=== PATIENT | female | born 1950 | race Caucasian/White ===

== ENCOUNTER → 2018-01-16 11:12 | Outpatient (POV) | payer MEDICARE, SELFPAY | PROVIDERS: Visit Provider Nurse Practitioner Acute Care | DX: Z00.00 Encounter for general adult medical examination without abnormal findings (principal) ==

== ENCOUNTER → 2018-06-07 07:10 | Outpatient (CLI) | payer MEDICARE, SELFPAY ==
[2018-06-07 13:47] LABS: Basophils % 0.4 % (0.1-2.0); Eosinophils # 0.3 K/mm3 (0.0-0.4); Eosinophils % 3.7 % (0.1-12.0); Hematocrit 42.9 % (37.0-47.0); Hemoglobin 13.6 g/dL (12.2-16.2); Lymphocytes # 1.6 K/mm3 (0.7-4.5); Mean Corpuscular HGB Conc 31.8 g/dL (31.8-35.4); Mean Corpuscular Hemoglobin 28.8 pg (27.0-31.2); Mean Corpuscular Volume 90.5 fl (81-99); Mean Platelet Volume 7.4 fl (7.4-10.4); Monocytes # 0.4 K/mm3 (0.1-1.0); Monocytes % 5.7 % (1.7-9.3); Neutrophils # 5.2 K/mm3 (1.8-7.8); Neutrophils % 69.3 % (37.0-80.0); Platelet Count 324 K/mm3 (142-424); Red Blood Count 4.74 M/mm3 (4.20-5.40); Red Cell Distribution Width 13.4 % (11.5-17.5); White Blood Count 7.4 K/mm3 (4.8-10.8)
[2018-06-07 14:00] LABS: Alanine Aminotransferase 27 U/L (12-78); Albumin Level 3.4 gm/dL (3.4-5.0); Albumin/Globulin Ratio 1.3 (1.1-1.8); Alkaline Phosphatase 53 U/L (46-116); Anion Gap 11.8 mEq/L (5-15); Aspartate Amino Transferase 11 U/L (15-37); Bilirubin,Total 0.5 mg/dL (0.2-1.0); Blood Urea Nitrogen 13 mg/dL (7-18); Calcium 8.9 mg/dL (8.5-10.1); Carbon Dioxide 29 mmol/L (21.0-32.0); Chloride 111 mmol/L (98-107); Chol/HDL Ratio 2.1 (1-3.5); Cholesterol 127 mg/dL (140-200); Creatinine,Serum 0.74 mg/dL (0.55-1.02); Estimated Glomerular Filt Rate 78 ml/min (>60); Free Thyroxine Index 3.4 ug/dL (5.93-13.13); GFR (African American) 95 ML/MIN (>60); Globulin 2.6 gm/dl (1.3-3.2); Glucose 79 mg/dL (74-106); HDL Cholesterol 60 mg/dL (29-89); LDL Cholesterol 45 mg/dL (0-130); Potassium 3.8 mmoL/L (3.5-5.1); Sodium 148 mmol/L (136-145); T4 (Thyroxine) 10.1 ug/dl (4.7-13.3); Thyroid Stimulating Hormone 0.01 uIU/ml (0.358-3.740); Triglycerides 109 mg/dL (30-200); Triiodothryronine (T3) Uptake 34 % (31-39); VLDL Cholesterol 22 mg/dL (0-40)
== END ==
PROVIDERS: PCP Internal Medicine Adolescent Medicine; Visit Provider Internal Medicine Adolescent Medicine
DX: E03.9 Hypothyroidism, unspecified (principal); E78.5 Hyperlipidemia, unspecified; E23.0 Hypopituitarism
CPT/HCPCS: 36415; 80053; 80061; 82533; 84436; 84443; 84479; 85025

== ENCOUNTER → 2019-04-17 09:17 | Outpatient (CLI) | payer MEDICARE, SELFPAY ==
--- NOTE | 2019-04-17 09:21 | CA_ITS ---
APPROVED REPORT EXAM: Comprehensive 2D, Doppler, and color-flow Echocardiogram [employer]: Genesis Rodriguez RDCS Ht: 5 ft 7 in Wt: 185lbs BSA: 1.96 BP: 130/80 mmHg Indications: WYATT Left Ventricle Left atrium is mildly enlarged, left ventricle is normal size, visually estimated ejection fraction 55% with no regional wall motion abnormality, grade 1 diastolic dysfunction seen without tissue Doppler evidence of raise left atrial pressure. Right Ventricle Right atrium and right ventricular normal size and contractility. Aortic Valve Aortic valve is minimally thickened and fibrosed, there is no aortic stenosis aortic insufficiency. Mitral Valve Mitral valve leaflets are minimally thickened, there is no mitral stenosis, there is mild mitral regurgitation Tricuspid Valve Tricuspid valve is grossly normal, there is mild tricuspid regurgitation, tricuspid regurgitation jet velocitie is inadequate for calculation of the right ventricular systolic pressure. Pulmonic Valve Pulmonic valve is poorly visualized. Great Vessels Aortic root is normal size. Pericardium No significant pericardial effusion noted. 2D Dimensions LVOT 2.00 cm (M/F) 1.5-2.5 M-Mode Dimensions RVDd 1.80 cm (0.9-2.6) LA Diam 4.10 cm (1.9-4.0) LVDd 5.80 cm (3.5-5.7) Ao Diam 3.30 cm (2.0-3.7) LVDs 4.30 cm (3.5-5.7) AV Cusp 1.70 cm (1.5-2.6) IVSd 0.90 cm (0.6-1.1) PWd 0.90 cm (0.6-1.1) EF (Teich) 50.20% FS 25.90% EDV (Teich) 167.00 mL ESV (Teich) 83.10 mL LV Diastology E/A Ratio 0.90 MED E' 6.34 (< 7 cm/sec) E'/MED E' Ratio 11.10 (>14) LAT E' 10.00 (<10 cm/sec) E/LAT E' Ratio 7.10 (>14) Mitral Valve MV E Max Mook. 70.60 (40-130 cm/s) MV A Velocity 75.50 (40-130 cm/s) E/A Ratio 0.90 Tricuspid Valve TR P. Velocity 257.00 cm/s RAP Estimate 10.00 mmHg RVSP 36.00 mmHg Conclusion 1. Mild in the left atrium, normal left ventricular size, visually estimated ejection fraction 45% with no regional wall motion abnormality, grade 1 diastolic dysfunction seen without tissue Doppler evidence of raise left atrial pressure. 2. Mild mitral and tricuspid regurgitation 3. No significant pericardial effusion noted. Electronically signed by : Vicente Johnson, 04/20/2019 14:08:10
--- NOTE | 2019-04-17 09:53 | XR_ITS ---
PROCEDURE: XR CHEST 2V CLINICAL HISTORY: DYSPNEA ON EXERTION COMPARISON: CXR CHEST(2 VIEWS-NOT PORTABLE) from 06/23/2016 FINDINGS: Mild cardiomegaly without failure. Tortuous aorta. [id number] dextroscoliosis of the thoracic spine. Lungs are clear. No lobar consolidation or collapse. IMPRESSION: Cardiomegaly, no change with no acute finding Dictated by: Joel Méndez MD 04/18/2019 06:10 Signed by: <Electronically signed by Joel Méndez MD in [place]> 04/18/2019 06:10
== END ==
PROVIDERS: PCP Internal Medicine Adolescent Medicine; Visit Provider Internal Medicine Adolescent Medicine
DX: R06.09 Other forms of dyspnea (principal)
CPT/HCPCS: 71046; 93306

== ENCOUNTER 2019-07-05 10:00 | Outpatient (RCR) | payer MEDICARE, SELFPAY | END 2019-07-17 15:00 | disposition home or self-care (01) | LOC: PT.CARL 10:00 | PROVIDERS: Visit Provider Internal Medicine Adolescent Medicine | DX: R53.81 Other malaise (principal) | CPT/HCPCS: 97110; 97112; 97163 ==

== ENCOUNTER → 2019-10-31 07:35 | Outpatient (CLI) | payer MEDICARE, SELFPAY ==
[2019-10-31 13:43] LABS: Alanine Aminotransferase 20 U/L (12-78); Alkaline Phosphatase 56 U/L (38-126); Anion Gap 9.6 mEq/L (5-15); Aspartate Amino Transferase 20 U/L (14-36); Bilirubin,Total 0.5 mg/dl (0.2-1.3); Blood Urea Nitrogen 19 mg/dl (7-17); Carbon Dioxide 31 mmol/L (22.0-30.0); Chloride 106 mmol/L (98-107); Chol/HDL Ratio 2.2 (1-3.5); Cholesterol 108 mg/dl (140-200); Estimated Glomerular Filt Rate 71 ml/min (>60); GFR (African American) 86 ML/MIN (>60); Glucose 77 mg/dl (74-100); HDL Cholesterol 50 mg/dl (40-60); Potassium 4.6 mmoL/L (3.5-5.1); Sodium 142 mmol/L (136-145); Triglycerides 134 mg/dl (30-150); VLDL Cholesterol 27 mg/dL (0-40)
[2019-10-31 13:53] LABS: NT Pro Brain Natriuretic Pep. 247 pg/mL (0-125)
[2019-10-31 13:55] LABS: Direct LDL Cholesterol 40.54 mg/dL (100-129)
[2019-10-31 14:01] LABS: Free Thyroxine Index 2.8 ug/dL (5.93-13.13); T4 (Thyroxine) 9.4 ug/dl (5.53-11.0); Triiodothryronine (T3) Uptake 30 % (23.5-40.5)
[2019-10-31 14:02] LABS: Basophils % 0.4 % (0.1-2.0); Eosinophils # 0.2 K/mm3 (0.0-0.4); Hematocrit 45.1 % (37.0-47.0); Hemoglobin 14.1 g/dL (12.2-16.2); Lymphocytes % 17.9 % (10-50); Mean Corpuscular HGB Conc 31.2 g/dL (31.8-35.4); Mean Corpuscular Hemoglobin 29.9 pg (27.0-31.2); Mean Corpuscular Volume 95.7 fl (81-99); Mean Platelet Volume 8.4 fl (7.4-10.4); Monocytes # 0.6 K/mm3 (0.1-1.0); Monocytes % 5.1 % (1.7-9.3); Neutrophils # 8.3 K/mm3 (1.8-7.8); Neutrophils % 74.6 % (37.0-80.0); Platelet Count 281 K/mm3 (142-424); Red Blood Count 4.72 M/mm3 (4.20-5.40); Red Cell Distribution Width 13.8 % (11.5-17.5); White Blood Count 11.2 K/mm3 (4.8-10.8)
[2019-10-31 14:14] LABS: Thyroid Stimulating Hormone < 0.02 uIU/mL (0.465-4.68)
== END ==
PROVIDERS: Visit Provider Internal Medicine Adolescent Medicine
DX: I50.32 Chronic diastolic (congestive) heart failure (principal); E78.5 Hyperlipidemia, unspecified; E03.9 Hypothyroidism, unspecified
CPT/HCPCS: 36415; 80053; 80061; 82533; 83880; 84436; 84443; 84479; 85025

== ENCOUNTER 2020-01-01 13:39 | Inpatient (IN) | payer MEDICARE, SELFPAY ==
--- NOTE | 2020-01-01 13:51 | XR_ITS ---
PROCEDURE: XR CHEST 2V CLINICAL HISTORY: SOA Irregular heart rate, shortness of air COMPARISON: CXR CHEST(2 VIEWS-NOT PORTABLE) from 06/23/2016 XR CHEST 2V from 04/17/2019 FINDINGS: There is cardiomegaly without failure. There is tortuosity of the thoracic aorta along with dextro kyphoscoliosis. Patchy density is present in the left lower lobe and may be due to areas of atelectasis and/or fibrotic change. There are degenerative changes in the shoulders IMPRESSION: Chronic changes with left basilar atelectasis and/or fibrotic Dictated by: Joel Méndez MD 01/01/2020 15:54 Electronically signed by Joel Méndez MD in [place] 01/01/2020 15:54
--- NOTE | 2020-01-01 13:53 | CA_ITS ---
APPROVED REPORT EXAM: Comprehensive 2D, Doppler, and color-flow Echocardiogram [employer]: Jen Canela RVT Ht: 5 ft 6 in Wt: 198lbs BSA: 1.99 BP: 110/60 mmHg Indications: NEW ONSET OF A-FIB,HTN,OBESITY TDS-LIMITED WINDOWS 2D Dimensions LVOT 1.81 cm (M/F) 1.5-2.5 M-Mode Dimensions RVDd 2.42 cm (0.9-2.6) LVDd 4.25 cm (3.5-5.7) LVDs 3.23 cm (3.5-5.7) IVSd 0.85 cm (0.6-1.1) PWd 0.76 cm (0.6-1.1) EF (Teich) 48.10% FS 24.00% EDV (Teich) 80.80 mL ESV (Teich) 41.90 mL LV Diastology E/A Ratio 0.66 Mitral Valve MV A Velocity 55.00 (40-130 cm/s) Left Ventricle Left atrium is mildly enlarged, left ventricle is normal size, mild concentric left ventricular hypertrophy, visually estimated ejection fraction approximately 50% with no regional wall motion abnormality, endocardial surfaces are poorly visualized. Diastolic parameters are inconclusive. Right Ventricle Right atrium and right ventricle mildly enlarged with normal contractility. Aortic Valve Aortic valve is thickened and calcified without Doppler evidence of aortic stenosis or aortic insufficiency. Mitral Valve Mitral valve is minimally thickened, there is mild mitral regurgitation. Tricuspid Valve Tricuspid valve is grossly normal, there is mild tricuspid regurgitation, tricuspid regurgitation jet velocity is inadequate for calculation of the right ventricular systolic pressure. Pulmonic Valve Pulmonic valve is poorly visualized. Great Vessels Aortic root is normal size. Pericardium No significant pericardial effusion noted. Conclusion 1. Technically difficult study because of the patient fact in poor acoustic windows 2. Mild biatrial enlargement, normal left ventricular size, mild concentric left ventricular hypertrophy, visually estimated ejection fraction 50% with no regional wall motion abnormality, diastolic parameters are inconclusive. 3. Mildly enlarged right ventricle with normal contractility. 4. Thickened and calcified aortic valve without Doppler evidence of aortic stenosis or aortic insufficiency. 5. Mild mitral and tricuspid regurgitation. 6. No significant pericardial effusion noted. Electronically signed by : Vicente Johnson, 01/01/2020 20:44:05
--- NOTE | 2020-01-01 13:57 | HMH.HP ---
*Admission Date: 01/01/20 *Chief complaint: Worsening SOA *History of present illness: Patient presented to my office to followup recent telemedicine visit in which Lasix was increased because of increasing swelling. She has been very happy with the diuresis and improved edema results but notices that her shortness of air and weakness continues to be unchanged. No other medication changes, becomes dyspneic with activity which is slightly worse. Is able to sleep well and denies orthopnea. Denies chest pain, occasionally notes an irregular pulse. Of note, 4 months ago patient was diagnosed with diastolic dysfunction with preserved ejection fraction based on increasing edema, responded well to low-dose beta pilar and low-dose Lasix. Has never had a history of irregular heartbeat. In the office patient was diagnosed with new-onset atrial fibrillation with heart rate 150, transferred to [facility] for admission for Cardizem drip given relatively low blood pressure and rapid ventricular response, initiation of anticoagulation therapy and cardiology consultation. [facility] History I have reviewed the patient's past medical history: Yes Medical History: Reports:: Congestive Heart Failure, Hyperlipidemia Denies:: Diabetes Mellitus Type 1, Diabetes Mellitus Type 2, Internal Pacemaker, Lung Disease, Seizures *Have you ever received a pneumonia vaccine?: Yes *Have you received a flu vaccine this season?: Yes Other Medical History: Reports: Thyroid Disease Comment:: Panyhypopituitarism Other Surgeries: No: Pacemaker - *Social History Educational Level: Completed College Smoking Status: Never smoker Alcohol Intake: never Substance Use Type: denies use *Occupational Status:: retired *Travel in the last 8 weeks: None - Psychiatric History Expresses thoughts of harming self/others: None Suicide Plan Description: No Plan Family Hx:: No significant family history Review of Systems - Review of Systems Review of systems:: pertinent systems reviewed and negative unless documented below - Constitutional Reports fatigue - *Cardiovascular Reports shortness of breath with activity, Reports irregular heart rhythm, Denies chest pain, Denies chest pain at rest, Denies leg swelling, Denies shortness of breath when lying down, Denies shortness of breath causing sudden awakening - *Respiratory Denies change in phlegm color, Denies chest congestion - *Gastrointestinal Denies abdominal pain Meds Home Medications Medication Instructions Recorded Confirmed Type Alendronate Sodium [Fosamax] 70 mg PO DAILY 06/20/18 06/20/18 History Hydrocortisone 10 mg PO QID 02/22/18 02/22/18 History Levothyroxine Sodium 100 mg PO DAILY 02/22/18 02/22/18 History [Levothyroxine 100mcg (0.1MG) Tab] Pravastatin Sodium [Pravachol 40mg 40 mg PO DAILY 02/22/18 02/22/18 History Tablet] Tramadol HCl [Ultram Take Home 50 mg PO NEEDED PRN 02/22/18 02/22/18 History Pack 50mg (10)] Allergies Allergy/AdvReac Type Severity Reaction Status Date / Time No Known Allergies Allergy Verified 02/22/18 13:57 Exam Narrative: Patient is pleasant, oriented x3, no JVD noted. Oropharynx clear. Lungs are clear with good air movement, heart rate irregular, rapid rate in the 120-150 range. Brawny skin changes consistent with resolved edema in the lower extremities but no current pedal edema or hand edema. Abdomen soft and nontender. Neurologic exam intact. Assessment and Plan (1) New onset atrial fibrillation Current visit: Yes Status: Acute Category: Medical Code(s): I48.91 - Unspecified atrial fibrillation Admit to [facility] gtt, echo, serial ECG. Begin lovenox tx and eval for rate control vs. cardioversion (2) CHF (congestive heart failure) Current visit: Yes Status: Acute Category: Medical Code(s): I50.9 - Heart failure, unspecified (3) Pituitary abnormality Current visit: Yes Status: Acute Category: Medical Code(s): E
--- NOTE | 2020-01-01 14:32 | ECG_ITS ---
APPROVED REPORT Exam: Resting ECG HR:83 bpm ECG Measurements Heart Rate 83 AXES DC 150 P 33 QRSd 70 QRS 24 QT 350 T 69 QTc 411 <Conclusion> Normal sinus rhythm Nonspecific ST abnormality Abnormal ECG Electronically signed by : Luis E Almeida, 01/02/2020 16:47:55
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
[2020-01-01 15:15] VITALS: BP 119/64; PULSE 77; RESP 20; TEMP 36.6; O2SAT 97
[2020-01-01 15:17] VITALS: BMI 31.5
[2020-01-01 15:23] LABS: Basophils # 0.3 K/mm3 (0-0.2); Basophils % 2.2 % (0.1-2.0); Eosinophils # 0.4 K/mm3 (0.0-0.4); Eosinophils % 2.7 % (0.1-12.0); Hematocrit 45.4 % (37.0-47.0); Hemoglobin 14.7 g/dL (12.2-16.2); Lymphocytes # 0.8 K/mm3 (0.7-4.5); Lymphocytes % 6.4 % (10-50); Mean Corpuscular HGB Conc 32.4 g/dL (31.8-35.4); Mean Corpuscular Hemoglobin 29.8 pg (27.0-31.2); Mean Corpuscular Volume 92.1 fl (81-99); Mean Platelet Volume 7.9 fl (7.4-10.4); Monocytes # 0.7 K/mm3 (0.1-1.0); Monocytes % 5.5 % (1.7-9.3); Neutrophils % 83.3 % (37.0-80.0); Platelet Count 273 K/mm3 (142-424); Red Blood Count 4.93 M/mm3 (4.20-5.40); White Blood Count 13.2 K/mm3 (4.8-10.8)
[2020-01-01 15:27] LABS: Chloride 99 mmol/L (98-107); Potassium 4.5 mmoL/L (3.5-5.1); Sodium 138 mmol/L (136-145)
[2020-01-01 15:30] LABS: Anion Gap 10.5 mEq/L (5-15); Blood Urea Nitrogen 24 mg/dl (7-17); Calcium 9.9 mg/dl (8.4-10.2); Carbon Dioxide 33 mmol/L (22.0-30.0); Creatinine Clearance Estimated 67 mL/min (50-200); Estimated Glomerular Filt Rate 49 ml/min (>60); GFR (African American) 60 ML/MIN (>60); Glucose 124 mg/dl (74-100)
--- NOTE | 2020-01-01 15:36 | HMH.PHAINT ---
home medication reconciliation completed using list from [facility]
--- NOTE | 2020-01-01 15:37 | P.CONPHA_ITS ---
[facility] Pharmacy VTE Monitoring - Patient Demographics Admission date: 01/01/20 Report Date: 01/01/20 Time: 15:37 Allergies/Adverse Reactions: Patient Allergies No Known Allergies Allergy (Verified 02/22/18 13:57) Height: 1.68 m Weight: 88.564 kg Patient Problems: Current Active Problems New onset atrial fibrillation (Acute) CHF (congestive heart failure) (Acute) Pituitary abnormality (Acute) Pituitary insufficiency (Acute) - VTE Risk Labs: VTE Related Lab Results BUN 24 mg/dl (7-17) H 01/01/20 15:10 Creatinine 1.10 mg/dl (0.52-1.04) H 01/01/20 15:10 Estimated Creat Clear 67 mL/min (50-200) 01/01/20 15:10 Was VTE Risk Assessment Performed: Yes VTE Score: 2 VTE Risk Level: Very Low Risk Clinical Trial Participant: No - Prophylaxis VTE Prophylaxis Ordered?: Yes Types of VTE Prophylaxis: TEDS Knee High, Pharmacological Pharmacologic Type: Enoxaparin
[2020-01-01 16:00] VITALS: PULSE 60
[2020-01-01 16:02] LABS: Thyroid Stimulating Hormone < 0.02 uIU/mL (0.465-4.68)
[2020-01-01 17:34] LABS: Troponin I < 0.01 ng/ml (0.00-0.034)
[2020-01-01 20:00] VITALS: BP 136/68; PULSE 70; RESP 20; TEMP 36.6; O2SAT 97
[2020-01-01 20:41] LABS: Troponin I < 0.01 ng/ml (0.00-0.034)
[2020-01-02] VITALS (26 sets, daily range): BP systolic 90–123; BP diastolic 46–86; PULSE 55–164; RESP 16–20; TEMP 36.6–37.1; O2SAT 90–97; BMI 31.7; BMI 31.8
--- NOTE | 2020-01-02 | IR_ITS ---
APPROVED REPORT Patient Location: Inpatient Underwriting Intern: MAXIMINO Painter RT (R) PROCEDURES Left heart catheterization Left ventriculogram Selective coronary angiogram Catheter placement in the right subclavian artery with right subclavian artery retrograde angiogram INDICATION High risk abnormal stress test, Acute coronary syndrome, Suspected subclavian stenosis Informed consent was obtained prior to the procedure. COMPLICATIONS none Estimated Blood Loss: less than 10 mls TECHNIQUE One percent lidocaine used to anesthetize the right anterior aspect of the wrist. The right radial artery was accessed via the Seldinger technique. A 6 Mohawk sheath was placed in the right radial artery. 2.5 mg of verapamil, 800 mcg of nitroglycerin, 1mg Lidocaine and 5000 U Heparin were given through the arterial sheath. The trap catheter was also used to perform left heart catheterization, left ventriculogram and selective coronary angiogram. Due to difficulty in traversing the tortuosity through the brachiocephalic and axillary artery retrograde angiography was performed which demonstrated no significant atherosclerosis but rather significant tortuosity. At the end of the procedure the sheath was removed good hemostasis was achieved using Traclet band, patient was transferred to the postop holding area in stable condition. ANGIOGRAPHIC RESULTS The left main artery Normal The left anterior descending artery Normal The circumflex artery Normal The right coronary artery Large dominant normal The MERCHANT ventriculogram reveals Normal 65% The left ventricular end-diastolic pressure 10 to 15 mmHg The innominate artery is widely patent and gives rise to the right internal carotid artery which is normal. The right subclavian artery is tortuous with no evidence of atherosclerotic plaque IMPRESSION Normal coronary arteries Normal ejection fraction Normal to mildly elevated LVEDP PLAN 1. Medical management Electronically signed by : Edmund Craig, 01/02/2020 13:34:45
--- NOTE | 2020-01-02 | CA_ITS ---
APPROVED REPORT Exam: Pharmacologic Technologist: Nelly Carlos Ht: 5 ft 6 in Wt: 195 lbs BSA: 1.98 m2 HR: 61 bpm BP: 130/55 mmHg Indications: New onset Afib Medical History Medications: Levothyroxine,,,,, Furosemide (LASIX),,,,, Atorvastatin,,,,, Carvedilol,,,,, SpirOnolactone,,,,, Potassium,,,,, Hydrocortisone,,,,, Stress Test Details Test: LEXISCAN HR Resting HR: 61 bpm Max Heart Rate (APMHR): 151 bpm Max HR Achieved: 80 bpm Target HR (85% APMHR): 128 bpm % of APMHR: 52 Recovery HR: 70 bpm BP Resting BP: 130.0/55.0 mmHg Max BP: 130.0/55.0 mmHg Recovery BP: 127.0/63.0 mmHg ECG Clinical Exercise duration: 04:06 min Highest Stage Achieved: Exercise capacity: 1.0 METs Stress ECG Conclusion Resting ECG: Sinus Rhythm. Lexiscan portion completed. Patient complained of shortness of breath during peak infusion. Symptoms: Shortness of breath during peak infusion. Resolved in recovery. No chest pain. Arrhythmias/Ectopy: Occasional PVC. Occasional PAC. ST-T Changes: Less than 1.[address] depression. Conclusion: Images to follow. Electronically signed by : Vicente Johnson, 01/03/2020 10:24:51
--- NOTE | 2020-01-02 | NM_ITS ---
APPROVED REPORT Exam: Nuclear Stress Test Indication: dysrhythmia, obesity, htn, hyperlipidemia, fm.hx, sob, syncope, fatigue Patient Location: Inpatient Stress Tech: Nelly Carlos MO Tech:Elda Dela Cruz JAHAIRAT RT (R)(N)(M) Ht: 5 ft 6 in Wt: 195 lbs Bra Size: 46C HR: 61 bpm BP: 130/55 mmHg BSA: 1.98 m2 BMI: 31.4 History: dysrhythmia, obesity, htn, hyperlipidemia, fm.hx, sob, syncope, fatigue Procedure: Patient received a 0.4 mg of intravenous Lexiscan, resting heart rate 61 bpm, resting blood pressure 130/55 mmHg, with Lexiscan maximum heart rate achived was 74 bpm which is Less than 85 % of the maximum predicted heart rate and blood pressure was 115/55 mmHg. Electrocardiogram Resting electrocardiogram showed sinus rhythm, with Lexiscan there is less than 1.[address] segment depression noted from the baseline EKG. The EKG portion of the Lexiscan Myoview is nondiagnostic. Cardiac Stress and Resting SPECT Images: Cardiac Stress and Resting SPECT images were obtained using technetium 99m Myoview 30.5 mCi stress and 10.65 mCi at rest. Gated SPECT with analysis of segmental wall motion and calculation of the ejection fraction also done. Cardiac stress and resting SPECT images show decrease sensitivity anterior apical wall which improves on the resting images suggestive of reversible ischemia, computer derived ejection fraction is over 65% with no regional wall motion abnormality, right ventricle is normal size and contractility. This study is technically limited due to patient's body habitus. Conclusion: 1. The EKG portion of the Lexiscan Myoview is nondiagnostic. 2. Scintigraphic evidence of mild reversible ischemia involving the anterior apical wall, computer derived ejection fraction is over 65% with no regional wall motion abnormality, right ventricle is normal size and contractility. This is study is technically limited due to patient's body habitus. 3. Likely abnormal Lexiscan Myoview study. Electronically signed by : Vicente Johnson, 01/03/2020 10:28:19
--- NOTE | 2020-01-02 04:24 | PC.NURSE ---
No acute changes noted. Pt has not c/o any CP or soa. She has c/o chronic back pain and said she has trouble getting comfortable in the bed. Has not required any pain medication. Pt asked what time she is getting stress test, but it is unavailable at this time. VSS. No other concerns at this time. Will continue to monitor.
--- NOTE | 2020-01-02 07:44 | PC.NURSE ---
RECEIVED REPORT ON PATIENT. SHE IS CURRENTLY OFF FLOOR FOR STRESS TEST
--- NOTE | 2020-01-02 10:30 | PC.NURSE ---
Addendum entered by Keara Arce RN 01/02/20 12:42: RETURNED FROM STRESS TEST Original Note: PATIENT RETURNED FROM
--- NOTE | 2020-01-02 11:13 | HMH.PNCARD ---
Subjective Date: 01/02/20 Time: 09:45 Principal diagnosis: afib, sob Interval history: This is a 69-year-old female who was admitted to the hospital for atrial fibrillation with RVR. The patient has converted to sinus rhythm. She remains in sinus rhythm this morning. She continues to complain of shortness of breath and fatigue. She states she has had shortness of breath for about 6 to 9 months. She is short of breath with doing minimal exertion and chores around her house and sometimes even with just bending over. It is associated with significant fatigue and lack of energy at times. The patient states that she has been having edema but this is better. She drinks about 2 gallons of fluid per day per her report. She denies any chest pain or chest pressure. She denies any fever, chills, nausea, vomiting, diarrhea, PND, orthopnea, or cough. Exam Vital signs and Labs for Last 24 Hours: Temp Pulse Resp BP Pulse Ox 97.8 F 67 20 123/75 96 01/02/20 08:00 01/02/20 08:00 01/02/20 08:00 01/02/20 08:00 01/02/20 08:00 Laboratory Results - last 24 hr 01/01/20 15:10: WBC 13.2 H, RBC 4.93, Hgb 14.7, Hct 45.4, MCV 92.1, MCH 29.8, MCHC 32.4, RDW 14.0, Plt Count 273, MPV 7.9, Neut % (Auto) 83.3 H, Lymph % (Auto) 6.4 L, [place] % (Auto) 5.5, Eos % (Auto) 2.7, Baso % (Auto) 2.2 H, Neut # (Auto) 11.0 H, Lymph # (Auto) 0.8, [place] # (Auto) 0.7, Eos # (Auto) 0.4, Baso # (Auto) 0.3 H 01/01/20 15:10: Sodium 138, Potassium 4.5, Chloride 99, Carbon Dioxide 33 H, Anion Gap 10.5, BUN 24 H, Creatinine 1.10 H, Estimated Creat Clear 67, Estimated GFR 49 L, Est GFR ( Amer) 60, Glucose 124 H, Calcium 9.9, Magnesium 2.0, TSH < 0.02 L 01/01/20 17:00: Troponin I < 0.01 01/01/20 19:52: Troponin I < 0.01 I & O for Last 24 hours: Intake & Output 12/30/19 12/31/19 01/01/20 01/02/20 23:59 23:59 23:59 23:59 Intake Total 240 / 240 629 / 629 Balance 240 / 240 629 / 629 Weight 195 lb 4 oz 197 lb 8 oz Narrative: Telemetry strip is sinus rhythm with a rate of 62. Echo shows: 1. Technically difficult study because of the patient fact in poor acoustic windows 2. Mild biatrial enlargement, normal left ventricular size, mild concentric left ventricular hypertrophy, visually estimated ejection fraction 50% with no regional wall motion abnormality, diastolic parameters are inconclusive. 3. Mildly enlarged right ventricle with normal contractility. 4. Thickened and calcified aortic valve without Doppler evidence of aortic stenosis or aortic insufficiency. 5. Mild mitral and tricuspid regurgitation. 6. No significant pericardial effusion noted. - Constitutional no acute distress, obese - *Routine HEENT Exam Head: Present: normocephalic Eye: Present: EOMI, PERRL ENT: Present: mucous membranes moist - *Routine Neck Exam Present: supple, full ROM, normal carotid upstroke. Absent: JVD, carotid bruit, lymphadenopathy - *Routine Respiratory Exam Present: CTA bilaterally - *Routine Cardiovascular Exam Present: RRR, Normal S1, Normal S2. Absent: murmur - *Routine Abdominal Exam Present: soft, normoactive bowel sounds. Absent: tenderness - *Routine Extremities Exam Present: full ROM, pulses intact, normal capillary refill. Absent: cyanosis, clubbing, edema - *Routine Skin Exam Present: intact, warm. Absent: erythema, rash - *Routine Neurological Exam Present: alert, oriented X3, CN II-XII intact. Absent: sensory deficit, motor deficit Progress Note: A&P (1) New onset atrial fibrillation Status: Acute Current Visit: Yes (2) CHF (congestive heart failure) Status: Acute Current Visit: Yes (3) Pituitary abnormality Status: Acute Current Visit: Yes (4) Pituitary insufficiency Status: Acute Current Visit: Yes (5) SOB (shortness of breath) Status: Acute Current Visit: Yes (6) HTN (hypertension) Status: Chronic Current Visit: Yes (7) HLD (hyperlipidemia) Status: Chronic Cu
--- NOTE | 2020-01-02 12:42 | PC.NURSE ---
LATE ENTRY AT 1220 IT WAS NOTICED BY THIS NURSE ON TELEMETRY THAT THE PATIENT WAS HAVING FREQUENT PACS AND PVS. AM METOPROLOL WAS HELP DUE TO HR IN 50S UPON RETURNING FROM STRESS TEST. CARMEN HARDY APRN WAS IN DICTATION ROOM SO I TOLD HER I WAS GOING TO GO AHEAD AND GIVE HER AM DOSE SINCE SHE WAS IN 70S AND HAVING PACS AND PVCS. CARMEN AGREES. WHILE CARMEN WAS DISCUSSING RESULTS OF STRESS TEST WITH PATIENT SHE FLIPPED INTO A.FIB WITH RVR FOR SEVERAL SECONDS THEN BACK TO NSR. AT 1225 SHE WAS IN A SUSTAINED A.FIB WITH RVR AT A RATE BETWEEN 150-190. PER DR SAPP PATIENT WILL BE GOING DOWN FOR A HEART CATH. DR COOLEY NOTIFIED AT THIS TIME WELL.
--- NOTE | 2020-01-02 15:30 | PC.NURSE ---
REMOVED 2ML AIR FROM TRACELET - 10 ML REMAINING
--- NOTE | 2020-01-02 16:44 | HMH.ACPN2 ---
Internal Medicine - PN: Subj *Date: 01/02/20 *Time: 16:44 Interval history: Patient had uneventful day, had stress testing this morning that was markedly abnormal. Taken to Scholarship Counselor, cath report noted, no evidence of diseased vessels, torturous vessels but no intervention done. Patient in good spirits this afternoon after heart cath. Long discussion with patient about paroxysmal atrial fibrillation, change in medications and probable discharge tomorrow. Exam Vital signs and Labs for Last 24 Hours: Temp Pulse Resp BP Pulse Ox 98 F 60 18 90/46 L 96 01/02/20 13:52 01/02/20 15:55 01/02/20 15:55 01/02/20 15:55 01/02/20 15:55 Laboratory Results - last 24 hr 01/01/20 17:00: Troponin I < 0.01 01/01/20 19:52: Troponin I < 0.01 I & O for Last 24 hours: Intake & Output 12/31/19 01/01/20 01/02/20 01/03/20 11:59 11:59 11:59 11:59 Intake Total 869 / 869 Balance 869 / 869 Weight 197 lb 8 oz 198 lb 6.656 oz Narrative: Alert, pleasant. Oriented. Lungs clear. Heart rate regular. Abdomen soft. No edema. Neurologically intact. Assessment and Plan (1) New onset atrial fibrillation Current visit: Yes Status: Acute Category: Medical Code(s): I48.91 - Unspecified atrial fibrillation (2) CHF (congestive heart failure) Current visit: Yes Status: Acute Category: Medical Code(s): I50.9 - Heart failure, unspecified (3) Pituitary abnormality Current visit: Yes Status: Acute Category: Medical Code(s): E23.7 - Disorder of pituitary gland, unspecified (4) Pituitary insufficiency Current visit: Yes Status: Acute Category: Medical Code(s): E23.0 - Hypopituitarism (5) SOB (shortness of breath) Current visit: Yes Status: Acute Category: Medical Code(s): R06.02 - Shortness of breath (6) HTN (hypertension) Current visit: Yes Status: Chronic Category: Medical Code(s): I10 - Essential (primary) hypertension (7) HLD (hyperlipidemia) Current visit: Yes Status: Chronic Category: Medical Code(s): E78.5 - Hyperlipidemia, unspecified - Assessment and plan all Dx Assessment and Plan for all problems:: Plan for discharge tomorrow with low-dose bisoprolol and verapamil as noted. Add Eliquis on discharge for paroxysmal atrial fibrillation given her elevated chads score. She will need close follow-up in office in the next 1 or 2 weeks.
[2020-01-03] VITALS: BP 99/55; PULSE 53; PULSE 60; RESP 18; TEMP 36.8; O2SAT 96
[2020-01-03 04:00] VITALS: BP 123/62; PULSE 55; PULSE 60; RESP 18; TEMP 36.8; O2SAT 98
--- NOTE | 2020-01-03 04:52 | PC.NURSE ---
Addendum entered by Yaya Cannon CNA 01/03/20 05:00: Will attempt to wean patient of NC when breakfast trays arrive by encouraging her to get up to chair Original Note: Patient has rested comfortably for most of the night. She has complained of back pain that she says is a chronic issue. Patient experiences weakness with ambulation. Patient has not complained of chest pain for the duration of the shift. Vital signs have remained stable. No acute changes this shift. Tele strip was NSR with some bradycardia. She remains on 2L NC r/t O2 into high 80's on room air.
[2020-01-03 05:00] VITALS: BMI 31.7
[2020-01-03 06:04] LABS: Basophils % 0.6 % (0.1-2.0); Eosinophils # 0.2 K/mm3 (0.0-0.4); Eosinophils % 2.2 % (0.1-12.0); Hematocrit 42.5 % (37.0-47.0); Lymphocytes # 1.4 K/mm3 (0.7-4.5); Lymphocytes % 19.6 % (10-50); Mean Corpuscular HGB Conc 32.8 g/dL (31.8-35.4); Mean Corpuscular Hemoglobin 30.4 pg (27.0-31.2); Mean Corpuscular Volume 92.6 fl (81-99); Mean Platelet Volume 8.4 fl (7.4-10.4); Monocytes # 0.5 K/mm3 (0.1-1.0); Neutrophils # 4.9 K/mm3 (1.8-7.8); Neutrophils % 70.6 % (37.0-80.0); Platelet Count 219 K/mm3 (142-424); Red Blood Count 4.59 M/mm3 (4.20-5.40); Red Cell Distribution Width 14.3 % (11.5-17.5); White Blood Count 6.9 K/mm3 (4.8-10.8)
[2020-01-03 06:11] LABS: Chloride 108 mmol/L (98-107); Potassium 4.1 mmoL/L (3.5-5.1); Sodium 143 mmol/L (136-145)
[2020-01-03 06:13] LABS: Alanine Aminotransferase 25 U/L (12-78); Anion Gap 10.1 mEq/L (5-15); Aspartate Amino Transferase 23 U/L (14-36); Bilirubin,Unconjugated 0.7 mg/dL (0.0-1.1); Blood Urea Nitrogen 16 mg/dl (7-17); Carbon Dioxide 29 mmol/L (22.0-30.0); Creatinine Clearance Estimated 75 mL/min (50-200); Estimated Glomerular Filt Rate 71 ml/min (>60); GFR (African American) 86 ML/MIN (>60)
[2020-01-03 06:14] LABS: Albumin Level 3.4 g/dl (3.5-5.0); Alkaline Phosphatase 54 U/L (38-126); Bilirubin,Indirect 0.6 mg/dL (0.0-0.9); Bilirubin,Total 0.6 mg/dl (0.2-1.3); Chol/HDL Ratio 2.4 (1-3.5); Cholesterol 99 mg/dl (140-200); Glucose 75 mg/dl (74-100); HDL Cholesterol 41 mg/dl (40-60); Total Protein,Serum 5.6 g/dl (6.3-8.2); Triglycerides 154 mg/dl (30-150); VLDL Cholesterol 31 mg/dL (0-40)
[2020-01-03 07:30] VITALS: PULSE 66; O2SAT 92
[2020-01-03 07:59] VITALS: BP 113/43; PULSE 66; RESP 18; TEMP 36.6; O2SAT 92
--- NOTE | 2020-01-03 08:52 | HMH.DCSUM ---
General - General Admission date:: 01/01/20 Discharge date: 01/03/20 HPI HPI: Patient presented to my office to followup recent telemedicine visit in which Lasix was increased because of increasing swelling. She has been very happy with the diuresis and improved edema results but notices that her shortness of air and weakness continues to be unchanged. No other medication changes, becomes dyspneic with activity which is slightly worse. Is able to sleep well and denies orthopnea. Denies chest pain, occasionally notes an irregular pulse. Of note, 4 months ago patient was diagnosed with diastolic dysfunction with preserved ejection fraction based on increasing edema, responded well to low-dose beta pilar and low-dose Lasix. Has never had a history of irregular heartbeat. In the office patient was diagnosed with new-onset atrial fibrillation with heart rate 150, transferred to [facility] for admission for Cardizem drip given relatively low blood pressure and rapid ventricular response, initiation of anticoagulation therapy and cardiology consultation. Hospital Course Hospital Course: Admitted for new onset A. fib. Was seen by cardiology. Stress test performed which showed anterior ischemia that was reversible. Decision was made to proceed with left heart cath. Tortuous vessels however no flow-limiting lesions. Recommended medical management. Patient has tolerated rate control and been able to wean off of oxygen. This morning she is in good spirits, sitting up in bedside chair, and ready to go home. We will continue outpatient management with beta-pilar and calcium channel pilar to control blood pressure and rate. Given her chads Vascor, we will initiate Eliquis to decrease risk for stroke. Close follow-up in the coming week to assess tolerance of medication. Patient medically stable for discharge home. Denies chest pain, shortness of breath, nausea, vomiting, syncope, confusion. Objective Vital signs: Temp Pulse Resp BP Pulse Ox 97.8 F 66 18 113/43 L 92 L 01/03/20 07:59 01/03/20 07:59 01/03/20 07:59 01/03/20 07:59 01/03/20 07:59 Narrative: Alert, pleasant. Oriented. Lungs clear. Heart rate regular. Abdomen soft. No edema. Neurologically intact. Results Labs on day of discharge: Labs from last 24 hours 01/03/20 01/03/20 05:37 05:37 WBC 6.9 D RBC 4.59 Hgb 14.0 Hct 42.5 MCV 92.6 MCH 30.4 MCHC 32.8 RDW 14.3 Plt Count 219 MPV 8.4 Neut % (Auto) 70.6 Lymph % (Auto) 19.6 [place] % (Auto) 7.0 Eos % (Auto) 2.2 Baso % (Auto) 0.6 Neut # (Auto) 4.9 Lymph # (Auto) 1.4 [place] # (Auto) 0.5 Eos # (Auto) 0.2 Baso # (Auto) 0.0 Sodium 143 Potassium 4.1 Chloride 108 H Carbon Dioxide 29 Anion Gap 10.1 BUN 16 D Creatinine 0.80 D Estimated Creat Clear 75 Estimated GFR 71 Est GFR ( Amer) 86 D Glucose 75 Calcium 9.0 Total Bilirubin 0.6 Direct Bilirubin 0.0 Conjugated Bilirubin 0.0 Indirect Bilirubin 0.6 Unconjugated Bilirubin 0.7 AST 23 ALT 25 Alkaline Phosphatase 54 Total Protein 5.6 L Albumin 3.4 L Triglycerides 154 H Cholesterol 99 L LDL Cholesterol Direct 48.40 L VLDL Cholesterol 31 HDL Cholesterol 41 Cholesterol/HDL Ratio 2.4 DS: Diagnosis - Discharge Diagnosis (1) New onset atrial fibrillation Status: Acute (2) CHF (congestive heart failure) Status: Chronic (3) Pituitary abnormality Status: Chronic (4) Pituitary insufficiency Status: Chronic (5) SOB (shortness of breath) Status: Chronic (6) HTN (hypertension) Status: Chronic (7) HLD (hyperlipidemia) Status: Chronic Discharge Plan - Patient Discharge Instructions ACTIVITY: Continue current activity DIET: continue same diet Patient Instructions: Atrial Fibrillation - Follow up Plan Follow up with: Daniel Moore MD [Staff Physician]
--- NOTE | 2020-01-03 09:23 | HMH.PHAINT ---
DISCHARGE COUNSELING COMPLETE. SPOKE WITH PATIENT REGARDING ADDITIONS OF VERAPAMIL, AND APIXABAN WELL THE CHANGE OF CARVEDILOL TO BISOPROLOL. PATIENT COUNSELED OVER APIXABAN. PATIENT ASKED WHAT EFFECT THE VERAPAMIL AND CARVEDILOL HAS ON HER BLOOD PRESSURE SHE ALREADY HAS LOW BP AND WAS TOLD THAT THEY CAN HAVE SOME EFFECT ON LOWERING BP BUT MAINLY WORK ON THE HEART. PATIENT ALSO ASKED ABOUT ASPIRIN USE, I TOLD HER THAT I WOULD FOLLOW UP WITH DOCTOR TO SEE IF SHE SHOULD CONTINUE BUT PATIENT STATES SHE WILL FOLLOW UP. I ADVISED HER ON THE INCREASED RISK OF BLEEDING WITH ASA AND APIXABAN USE AND SHE UNDERSTANDS. PATIENT ENDORSED NO FURTHER QUESTIONS AT THIS TIME.
== END 2020-01-03 10:32 | disposition home or self-care (01) | DRG 286 ==
PROVIDERS: Internal Medicine; Nurse Practitioner Family; Admitting Provider Internal Medicine Adolescent Medicine; PCP Internal Medicine Adolescent Medicine; Visit Provider Internal Medicine Adolescent Medicine
DX: I48.0 Paroxysmal atrial fibrillation (principal); I50.33 Acute on chronic diastolic (congestive) heart failure; E23.0 Hypopituitarism; I11.0 Hypertensive heart disease with heart failure; Z79.899 Other long term (current) drug therapy
CPT/HCPCS: 36225; 36415; 71046; 78452; 80048; 80061; 80076; 83735; 84443; 84484; 85025; 93005; 93017; 93306; 93458; 94760; 94761; 99152; A9502; C1725; C1769; J1644; J2405; J2785; Q9967

== ENCOUNTER 2020-02-15 00:19 | Emergency (ER) | payer MEDICARE, SELFPAY ==
[2020-02-15 00:19] VITALS: BP 106/59; PULSE 88; RESP 18; TEMP 36.4; O2SAT 95; BMI 32.3
--- NOTE | 2020-02-15 00:27 | XR_ITS ---
PROCEDURE: XR CHEST 2V CLINICAL HISTORY: epigastric pain COMPARISON: CXR CHEST(2 VIEWS-NOT PORTABLE) from 06/23/2016 XR CHEST 2V from 04/17/2019 XR CHEST 2V from 01/01/2020 FINDINGS: There are low lung volumes. Borderline cardiomegaly without failure. Vascular crowding is present in the lung bases with atelectatic change. Upper lobes are clear. No definite lobar consolidation or collapse. Thoracic scoliosis convex right lumbar scoliosis convex left. There is a laminated calcific density in the right mid abdominal region consistent with a gallstone measuring 2 cm IMPRESSION: Low lung volumes with bibasilar atelectasis Cholelithiasis Thoracolumbar scoliosis Dictated by: Joel Méndez MD 02/15/2020 05:27 Electronically signed by Joel Méndez MD in [place] 02/15/2020 05:27
--- NOTE | 2020-02-15 00:27 | ECG_ITS ---
APPROVED REPORT Exam: Resting ECG HR:90 bpm ECG Measurements Heart Rate 90 AXES HI 142 P 39 QRSd 70 QRS 52 QT 360 T 67 QTc 440 <Conclusion> Normal sinus rhythm Nonspecific ST abnormality Abnormal ECG Electronically signed by : Luis E Almeida, 02/15/2020 14:07:56
[2020-02-15 00:34] LABS: Basophils # 0.1 K/mm3 (0-0.2); Basophils % 0.6 % (0.1-2.0); Eosinophils # 0.3 K/mm3 (0.0-0.4); Eosinophils % 2.8 % (0.1-12.0); Lymphocytes # 2.2 K/mm3 (0.7-4.5); Lymphocytes % 22.3 % (10-50); Mean Corpuscular HGB Conc 34.8 g/dL (31.8-35.4); Mean Corpuscular Hemoglobin 31.6 pg (27.0-31.2); Mean Platelet Volume 8.2 fl (7.4-10.4); Monocytes # 0.7 K/mm3 (0.1-1.0); Monocytes % 7.2 % (1.7-9.3); Neutrophils # 6.5 K/mm3 (1.8-7.8); Neutrophils % 67.1 % (37.0-80.0); Platelet Count 266 K/mm3 (142-424); Red Blood Count 4.73 M/mm3 (4.20-5.40); Red Cell Distribution Width 14.6 % (11.5-17.5); White Blood Count 9.7 K/mm3 (4.8-10.8)
[2020-02-15 00:41] LABS: Blood Urea Nitrogen 19 mg/dl (7-17); Calcium 9.8 mg/dl (8.4-10.2); Carbon Dioxide 29 mmol/L (22.0-30.0); Chloride 99 mmol/L (98-107); Creatinine Clearance Estimated 69 mL/min (50-200); Estimated Glomerular Filt Rate 49 ml/min (>60); GFR (African American) 60 ML/MIN (>60); Glucose 99 mg/dl (74-100); Sodium 138 mmol/L (136-145)
[2020-02-15 00:54] LABS: Troponin I < 0.01 ng/ml (0.00-0.034)
--- NOTE | 2020-02-15 01:21 | HMH.EDNVD ---
ED Disposition Clinical Impression: Chest pain Disposition: Home, Self-Care Condition on Discharge: Good Instructions: DI for Nausea -- Adult, DI for Nausea -- Child, DI for Diarrhea and Traveler's Diarrhea -- Adult, DI for Diarrhea and Traveler's Diarrhea -- Child Additional Instructions: If symptoms still persist please follow-up with tax processor outpatient. Referrals: Luis E Almeida MD [Primary Care Provider] - - Critical Care Critical Care Time: No Attestation: On 02/15/20, the high probability of a clinically significant, sudden or life threatening deterioration of the following system(s) required my full and direct attention, intervention and personal management. The time I documented below is in addition to time spent performing reported procedures but includes the following listed in this critical care notation. Medical Decision Making - Medical Records Medical records reviewed: Yes: I reviewed the patient's medical records. - Ilir Inquiry Pt receiving controlled substance: No Vital Signs: 02/15/20 00:19 Temperature 97.6 F Temperature Source Oral Pulse Rate [Left Radial] 88 Respiratory Rate 18 Blood Pressure [Right Arm] 106/59 L Blood Pressure Mean [Right Arm] 74 Blood Pressure Source [Right Arm] Automatic Cuff Blood Pressure Position [Right Arm] Sitting 02 Sat by Pulse Oximetry 95 - Lab Data Lab results reviewed: Yes: I reviewed the patient's lab results. Lab Results 02/15/20 00:25: WBC 9.7, RBC 4.73, Hgb 15.0, Hct 43.0, MCV 91.0, MCH 31.6 H, MCHC 34.8, RDW 14.6, Plt Count 266, MPV 8.2, Neut % (Auto) 67.1, Lymph % (Auto) 22.3, Green % (Auto) 7.2, Eos % (Auto) 2.8, Baso % (Auto) 0.6, Neut # (Auto) 6.5, Lymph # (Auto) 2.2, Green # (Auto) 0.7, Eos # (Auto) 0.3, Baso # (Auto) 0.1 02/15/20 00:25: Sodium 138, Potassium 4.0, Chloride 99, Carbon Dioxide 29, Anion Gap 14.0, BUN 19 H, Creatinine 1.10 H, Estimated Creat Clear 69, Estimated GFR 49 L, Est GFR ( Amer) 60, Glucose 99, Calcium 9.8, Troponin I < 0.01 Result diagrams: 02/15/20 00:25 02/15/20 00:25 Orders (Tests/Meds): ORDERS Category Date Time Status XR chest 2V Stat Exams 02/15/20 00:27 Taken Troponin I Q3H Lab 02/15/20 03:30 Ordered Troponin I Q3H Lab 02/15/20 06:30 Ordered - Radiology Data #1 Image(s): Chest Preliminary Findings: Normal/NAD - ECG Data Tracing #1 I reviewed this ECG and interpreted as documented below: Normal Sinus Rhythm: Yes Nausea/Vomiting/Diarrhea HPI - General Chief complaint: Nausea/Vomiting/Diarrhea Stated complaint: nausea Time Seen by Provider: 02/15/20 01:00 Mode of Arrival: EMS Source of Information: Patient Limitations: No Limitations Description of Symptoms (Recalled from ER Triage Doc. by RN): pt c/o nausea and epigastric pain for 3 days. per EMS pt was in Afib RVR in route to hospital but has since converted. pt has known history of afib. - History of Present Illness HPI Narrative: 69-year-old presents the ED with substernal chest pain. She states it started earlier this evening and she also felt her heart racing and became nauseous. EMS was called and when they got there they stated her heart rate was about 140 and she was in A. fib and RVR. On the way here she did receive a bolus of fluids and some Zofran. When she presented here to the ED her heart rate is 86 and normal sinus rhythm. Presently her nausea is gone. But she does state she does have some substernal chest pain which is nothing new for this patient she has had a chronic chest pain for the last 2 years. As of note patient did have a cardiac catheterization done on January 02, [address] Craig and a cardiac cath was clean. Recommended with medical management. She is admitted here to the hospital for A. fib and subsequently put on beta-blockers and calcium channel blockers along with Eliquis. She has been tolerating his medications very well. Otherwise patient denies any recent fever dean
[2020-02-15 01:56] VITALS: BP 114/68; PULSE 72; RESP 16; TEMP 36.4; O2SAT 100
== END 2020-02-15 01:58 | disposition home or self-care (01) ==
PROVIDERS: Emergency Provider Family Medicine; PCP Internal Medicine Adolescent Medicine
DX: R07.9 Chest pain, unspecified (principal); I48.91 Unspecified atrial fibrillation; E78.5 Hyperlipidemia, unspecified; E03.9 Hypothyroidism, unspecified
CPT/HCPCS: 71046; 80048; 84484; 85025; 93005; 99282; 99283

== ENCOUNTER → 2021-04-10 18:29 | Outpatient (CLI) | payer MEDICARE, SELFPAY | PROVIDERS: Visit Provider Nurse Practitioner Family | DX: L97.922 Non-pressure chronic ulcer of unspecified part of left lower leg with fat layer exposed (principal) | CPT/HCPCS: 87070; 87077; 87186; 87205 ==

== ENCOUNTER → 2021-04-14 07:41 | Outpatient (CLI) | payer MEDICARE, SELFPAY ==
[2021-04-14 13:55] LABS: Basophils # 0.1 K/mm3 (0-0.2); Basophils % 0.5 % (0.1-2.0); Eosinophils # 0.2 K/mm3 (0.0-0.4); Eosinophils % 1.9 % (0.1-12.0); Hematocrit 40.3 % (37.0-47.0); Hemoglobin 13.2 g/dL (12.2-16.2); Lymphocytes # 2.5 K/mm3 (0.7-4.5); Lymphocytes % 23.4 % (10-50); Mean Corpuscular HGB Conc 32.9 g/dL (31.8-35.4); Mean Corpuscular Hemoglobin 29.4 pg (27.0-31.2); Mean Corpuscular Volume 89.4 fl (81-99); Mean Platelet Volume 8.6 fl (7.4-10.4); Monocytes # 0.7 K/mm3 (0.1-1.0); Monocytes % 6.1 % (1.7-9.3); Neutrophils # 7.4 K/mm3 (1.8-7.8); Neutrophils % 68.1 % (37.0-80.0); Platelet Count 283 K/mm3 (142-424); Red Cell Distribution Width 14.2 % (11.5-17.5); White Blood Count 10.9 K/mm3 (4.8-10.8)
[2021-04-14 14:03] LABS: Alanine Aminotransferase 18 U/L (12-78); Albumin Level 3.7 g/dl (3.5-5.0); Albumin/Globulin Ratio 1.7 (1.1-1.8); Alkaline Phosphatase 55 U/L (38-126); Anion Gap 13.2 mEq/L (5-15); Aspartate Amino Transferase 20 U/L (14-36); Bilirubin,Total 0.6 mg/dl (0.2-1.3); Blood Urea Nitrogen 28 mg/dl (7-17); Calcium 8.9 mg/dl (8.4-10.2); Carbon Dioxide 28 mmol/L (22.0-30.0); Chloride 105 mmol/L (98-107); Chol/HDL Ratio 2.3 (1-3.5); Cholesterol 127 mg/dl (140-200); Estimated Glomerular Filt Rate 62 ml/min (>60); GFR (African American) 75 ML/MIN (>60); Globulin 2.2 g/dL (1.3-3.2); Glucose 76 mg/dl (74-100); HDL Cholesterol 55 mg/dl (40-60); Potassium 4.2 mmoL/L (3.5-5.1); Sodium 142 mmol/L (136-145); Total Protein,Serum 5.9 g/dl (6.3-8.2); Triglycerides 153 mg/dl (30-150); VLDL Cholesterol 31 mg/dL (0-40)
[2021-04-14 14:09] LABS: Hemoglobin A1C 5.8 % (4.0-6.0)
[2021-04-14 14:17] LABS: Direct LDL Cholesterol 41.57 mg/dL (100-129)
[2021-04-14 14:33] LABS: Thyroid Stimulating Hormone < 0.02 uIU/mL (0.465-4.68)
== END ==
PROVIDERS: Visit Provider Nurse Practitioner Family
DX: Z00.00 Encounter for general adult medical examination without abnormal findings (principal); I50.32 Chronic diastolic (congestive) heart failure; I48.91 Unspecified atrial fibrillation; E23.0 Hypopituitarism; L97.922 Non-pressure chronic ulcer of unspecified part of left lower leg with fat layer exposed; Z79.899 Other long term (current) drug therapy
CPT/HCPCS: 36415; 80053; 80061; 82533; 83036; 84443; 85025

== ENCOUNTER → 2021-05-22 11:51 | Outpatient (CLI) | payer MEDICARE, SELFPAY | PROVIDERS: Visit Provider Nurse Practitioner Family | DX: L97.929 Non-pressure chronic ulcer of unspecified part of left lower leg with unspecified severity (principal) | CPT/HCPCS: 87070; 87077; 87186; 87205 ==

== ENCOUNTER → 2021-06-19 20:05 | Outpatient (CLI) | payer MEDICARE, SELFPAY | PROVIDERS: Visit Provider Nurse Practitioner Family | DX: L97.922 Non-pressure chronic ulcer of unspecified part of left lower leg with fat layer exposed (principal); Z48.00 Encounter for change or removal of nonsurgical wound dressing | CPT/HCPCS: 87070; 87077; 87186; 87205 ==

== ENCOUNTER 2021-06-23 17:11 | Emergency (ER) | payer MEDICARE, SELFPAY ==
[2021-06-23 17:13] VITALS: BP 132/52; PULSE 96; RESP 22; TEMP 36.8; O2SAT 95; BMI 32.3
--- NOTE | 2021-06-23 17:59 | HMH.EDGENADL ---
ED Disposition Clinical Impression: Chronic ulcer of leg Qualifiers: Laterality: left Non-pressure ulcer stage: with fat layer exposed Qualified Code(s): L97.922 - Non-pressure chronic ulcer of unspecified part of left lower leg with fat layer exposed Disposition: Left Against Medical Advice Condition on Discharge: Fair Additional Instructions: Call your primary care provider and home health nurse tomorrow for further care. Referrals: Luis E Almeida MD [Primary Care Provider] - - Critical Care Critical Care Time: No Attestation: On 06/23/21, the high probability of a clinically significant, sudden or life threatening deterioration of the following system(s) required my full and direct attention, intervention and personal management. The time I documented below is in addition to time spent performing reported procedures but includes the following listed in this critical care notation. Medical Decision Making - Medical Records Medical records reviewed: Yes: I reviewed the patient's medical records. MR Comment: Reviewed culture results from leg wound collected on 04/10/2021, 05/22/2021, and 06/19/2021. - Ilir Inquiry Pt receiving controlled substance: No Vital Signs: 06/23/21 17:13 06/23/21 18:58 Temperature 98.3 F 98 F Temperature Source Oral Oral Pulse Rate 78 Pulse Rate [Left Radial] 96 H Respiratory Rate 22 20 Blood Pressure 132/74 Blood Pressure [Right Arm] 132/52 L Blood Pressure Mean [Right Arm] 78 Blood Pressure Source [Right Arm] Automatic Cuff Blood Pressure Position Sitting Blood Pressure Position [Right Arm] Sitting 02 Sat by Pulse Oximetry 95 Oxygen Delivery Method Room Air Room Air - Lab Data Lab Results 06/23/21 18:15: WBC 13.3 H, RBC 5.08, Hgb 15.0, Hct 47.9 H, MCV 94.2, MCH 29.5, MCHC 31.3 L, RDW 14.3, Plt Count 406, MPV 7.7, Neut % (Auto) 84.7 H, Lymph % (Auto) 8.1 L, [place] % (Auto) 5.5, Eos % (Auto) 1.3, Baso % (Auto) 0.4, Neut # (Auto) 11.3 H, Lymph # (Auto) 1.1, [place] # (Auto) 0.7, Eos # (Auto) 0.2, Baso # (Auto) 0.1 06/23/21 18:15: Sodium 144, Potassium 4.8, Chloride 101, Carbon Dioxide 30, Anion Gap 17.8 H, BUN 20 H, Creatinine 1.20 H, Estimated Creat Clear 62, Estimated GFR 44 L, Est GFR ( Amer) 54 L, Glucose 108 H, Calcium 9.9, Total Bilirubin 0.7, AST 24, ALT 21, Alkaline Phosphatase 70, C-Reactive Protein 48.4 H, Total Protein 7.9 D, Albumin 4.6, Globulin 3.3 H, Albumin/Globulin Ratio 1.4 06/23/21 18:15: ESR 19 06/23/21 18:15: Procalcitonin 0.098 06/23/21 18:15: Lactate 1.5 Result diagrams: 06/23/21 18:15 06/23/21 18:15 Orders (Tests/Meds): ORDERS Category Date Time Status Tibia/fibula XR left 2 views [XR tibia fibula LT 2V] Exams 06/23/21 18:24 Taken Stat Blood Culture Stat Micro 06/23/21 18:19 Received Medical Decision Narrative: The patient presented to the registration desk with outpatient orders. Our staff went up to speak with her because she was indicating that she wanted more than outpatient tests, she want a professional opinion. They gave her the option of obtaining x-rays and labs outpatient, as ordered, and follow-up with her primary care provider, or signing into the emergency department. She chose to sign to the emergency department for a professional opinion . Labs and x-rays were ordered. IV was established. After work-up was begun, the patient says that she wants to leave and go home. I explained to her that my plan was to obtain laboratory data and radiologist x-ray readings, then contact her primary care provider and determine disposition and treatment, given that this is a chronic problem that they have been intimately involved in managing. She says that she does not want to wait for her lab results or x-ray results, she wants to leave right now and go home and take her medication. I advised her that based on her test results intravenous antibiotics for admission may be recommended. She sees no point in admission, and sh
--- NOTE | 2021-06-23 18:24 | XR_ITS ---
PROCEDURE INFORMATION: Exam: XR Left Tibia and Fibula Exam date and time: 06/23/2021 6:24 PM Age: 70 years old Clinical indication: Condition or disease; Other: Chronic open wound/infection; Additional info: Chronic wound/infection R/O osteomyelitis TECHNIQUE: Imaging protocol: XR Left tibia and fibula. Views: 2 views. Total images: 3 COMPARISON: VENOUS LOWER EXT LT 12/14/2016 8:45 AM FINDINGS: Bones/joints: No fracture. Osteopenia. Mild osteoarthritic changes in the lateral compartment of the knee. Smoothly contoured mildly undulating nonaggressive periosteal thickening along the medial margin of the mid and distal tibial diaphysis and distal metaphysis, and lesser mild smooth periosteal thickening at the lateral margin of the distal fibular metadiaphysis. This is nonspecific in nature, however the nonaggressive features would tend to favor chronic periosteal reaction, which could be seen with chronic vascular insufficiency or possibly remote prior osteomyelitis. Soft tissues: Soft tissue irregularity in the medial soft tissues above the ankle consistent with history of open wound/infection. Vasculature: Mild calcific atherosclerosis. Other findings: No osteolysis. IMPRESSION: 1. No gross radiographic findings of acute osteomyelitis or septic joint. If clinically indicated, MRI or nuclear medicine three-phase bone scan would allow more sensitive/specific assessment for active osteomyelitis. 2. Soft tissue ulceration/wound in the medial soft tissues of the left lower leg above the ankle. No pattern of soft tissue air to suggest gangrene/necrotizing fasciitis. 3. Chronic appearing smooth nonaggressive periosteal thickening along the medial tibia and lateral distal fibula. This is nonspecific, possibly changes of prior osteomyelitis or chronic vascular insufficiency.
[2021-06-23 18:26] LABS: Basophils # 0.1 K/mm3 (0-0.2); Basophils % 0.4 % (0.1-2.0); Eosinophils # 0.2 K/mm3 (0.0-0.4); Eosinophils % 1.3 % (0.1-12.0); Hematocrit 47.9 % (37.0-47.0); Lymphocytes # 1.1 K/mm3 (0.7-4.5); Lymphocytes % 8.1 % (10-50); Mean Corpuscular HGB Conc 31.3 g/dL (31.8-35.4); Mean Corpuscular Hemoglobin 29.5 pg (27.0-31.2); Mean Corpuscular Volume 94.2 fl (81-99); Mean Platelet Volume 7.7 fl (7.4-10.4); Monocytes # 0.7 K/mm3 (0.1-1.0); Monocytes % 5.5 % (1.7-9.3); Neutrophils # 11.3 K/mm3 (1.8-7.8); Neutrophils % 84.7 % (37.0-80.0); Platelet Count 406 K/mm3 (142-424); Red Blood Count 5.08 M/mm3 (4.20-5.40); Red Cell Distribution Width 14.3 % (11.5-17.5); White Blood Count 13.3 K/mm3 (4.8-10.8)
[2021-06-23 18:29] LABS: Chloride 101 mmol/L (98-107); Potassium 4.8 mmoL/L (3.5-5.1); Sodium 144 mmol/L (136-145)
[2021-06-23 18:32] LABS: Alanine Aminotransferase 21 U/L (12-78); Albumin Level 4.6 g/dl (3.5-5.0); Albumin/Globulin Ratio 1.4 (1.1-1.8); Alkaline Phosphatase 70 U/L (38-126); Anion Gap 17.8 mEq/L (5-15); Aspartate Amino Transferase 24 U/L (14-36); Bilirubin,Total 0.7 mg/dl (0.2-1.3); Blood Urea Nitrogen 20 mg/dl (7-17); Calcium 9.9 mg/dl (8.4-10.2); Carbon Dioxide 30 mmol/L (22.0-30.0); Creatinine Clearance Estimated 62 mL/min (50-200); Estimated Glomerular Filt Rate 44 ml/min (>60); GFR (African American) 54 ML/MIN (>60); Globulin 3.3 g/dL (1.3-3.2); Glucose 108 mg/dl (74-100); Total Protein,Serum 7.9 g/dl (6.3-8.2)
[2021-06-23 18:37] LABS: C-Reactive Protein 48.4 mg/L (0-4)
--- NOTE | 2021-06-23 18:38 | PC.NURSE ---
WENT IN TO BANDAGE LEG SHE DID NOT WANT ME TO SAID SHE WOULD DO IT WHEN SHE GETS HOME
[2021-06-23 18:52] LABS: Lactic Acid 1.5 mmol/L (0.7-2.1)
[2021-06-23 18:53] LABS: Procalcitonin 0.098 ng/mL (0.0-2.0)
[2021-06-23 18:58] VITALS: BP 132/74; PULSE 78; RESP 20; TEMP 36.6; O2SAT 98
[2021-06-23 18:59] LABS: Erythrocyte Sedimentation Rate 19 mm/hr (0-30)
== END 2021-06-23 19:00 | disposition left against medical advice (07) ==
PROVIDERS: Emergency Provider Emergency Medicine; PCP Internal Medicine Adolescent Medicine
DX: L97.922 Non-pressure chronic ulcer of unspecified part of left lower leg with fat layer exposed (principal); L03.116 Cellulitis of left lower limb; I10 Essential (primary) hypertension; D84.9 Immunodeficiency, unspecified; E78.5 Hyperlipidemia, unspecified; I50.9 Heart failure, unspecified; Z79.899 Other long term (current) drug therapy
CPT/HCPCS: 73590; 80053; 83605; 84145; 85025; 85651; 86140; 87040; 99282

== ENCOUNTER 2021-06-26 15:58 | Inpatient (IN) | payer MEDICARE, SELFPAY ==
[2021-06-26 16:00] VITALS: BP 142/71; PULSE 75; RESP 16; TEMP 37; O2SAT 96
--- NOTE | 2021-06-26 16:07 | HMH.PHAVTE ---
[facility] VTE Monitoring - Patient Demographics Admission date: 06/26/21 Report Date: 06/26/21 Time: 16:07 Allergies/Adverse Reactions: Patient Allergies No Known Allergies Allergy (Verified 02/22/18 13:57) - Prophylaxis VTE Prophylaxis Ordered?: Yes Types of VTE Prophylaxis: TEDS Knee High Location of Applied Device: Right Leg
[2021-06-26 16:08] VITALS: BMI 31.4
--- NOTE | 2021-06-26 16:08 | HMH.PHACONS ---
- Pharmacy Consult Date: 06/26/21 Time: 16:08 Referring provider: EMMA TEAGUE APRN Reason for Consult:: VANCOMYCIN DOSING Allergies and ADEs:: Allergies Allergy/AdvReac Type Severity Reaction Status Date / Time No Known Allergies Allergy Verified 02/22/18 13:57 Home Medications:: Home Medications Medication Instructions Recorded Confirmed Type Levothyroxine Sodium 100 mcg PO DAILY 02/22/18 01/03/20 History [Levothyroxine 100mcg (0.1MG) Tab] Atorvastatin Calcium [Lipitor 80mg 80 mg PO HS 01/01/20 01/01/20 History Tab] Furosemide [Furosemide 40MG tAB*] 40 mg PO DAILY 01/01/20 01/01/20 History Hydrocortisone [Cortef] 50 mg PO DAILY 01/01/20 01/01/20 History Potassium Chloride 20 meq PO DAILY 01/01/20 01/01/20 History Spironolactone [Aldactone 25mg 25 mg PO BID 01/01/20 01/01/20 History Tab] Apixaban [Eliquis 5mg tab] 5 mg PO BID 30 Days #60 tab 01/03/20 Rx Bisoprolol Fumarate [Bisoprolol 5 mg PO DAILY 30 Days #30 tab 01/03/20 Rx 5mg Tablet] Verapamil HCl [Calan SR 120mg 120 mg PO DAILY 30 Days #30 01/03/20 Rx tablet] tablet.er Height: 1.67 m Weight: 90.7 kg Medical History: Reports:: Congestive Heart Failure, Hyperlipidemia Denies:: Diabetes Mellitus Type 1, Diabetes Mellitus Type 2, Internal Pacemaker, Lung Disease, Seizures Assessment and Plan - Assessment and plan all Dx Assessment and Plan for all problems:: Pharmacokinetic dosing service Objective: Patient: Floor: Age: 70 yo Serum creatinine: 1.20 mg/dL Height: 65.7 Inches Weight (kg): 90.7 Assessment: IBW (kg): 58.61 Dosing wt(kg): 90.7 Estimated Creatinine clearance (ml/min): 40.4 CRCL method: Cockcroft and Gault using ibw(default). Drug selected: Vancomycin Loading dose (mg): Vd (liters): 63.5 (factor used: 0.7 L/kg) Ehsan (hr-1): 0.038 Half life (hrs): 18.24 CLvanco=?? 2.413 L/hr Recommended dose: 1250 mg Interval: 24 hrs Infusion time (hrs): 2.0 Predicted peak (mcg/mL): 31.7 Predicted trough (mcg/mL): 13.74 Total body weight is being used for vancomycin dosing. Recommendations: Give Vancomycin 1250 mg q 24 hrs with an expected Cpeak of 31.7 mcg/ml and an expected Ctrough of 13.74 mcg/ml AUC 0-24 /JOSE Data: JOSE 0.5 mcg/mL:?? AUC/JOSE:? 1036.1 JOSE 1.0 mcg/mL:?? AUC/JOSE:? 518.0 --------- JOSE 1.5 mcg/mL:?? AUC/JOSE:? 345.4 JOSE 2.0 mcg/mL:?? AUC/JOSE:? 259.0 Thank you for the consult, will continue to follow. -MAJOR BANG, HUYEND
--- NOTE | 2021-06-26 16:08 | PC.NURSE ---
pt arrived to the floor at this time
--- NOTE | 2021-06-26 18:13 | HMH.HP ---
*Admission Date: 06/26/21 *Chief complaint: cellulitis LLE *History of present illness: 70 year old female who is medically noncompliant with h/o hypothyroidism, hyperlipidemia, HTN, diastolic CHF, A fib, pituitary insufficiency and chronic LE ulcers was seen today at home for FU on LE cellulitis. Chronic ulcer LLE has been present for months, treated for proteus infections twice in the last few months with abx and wound care per home health. Seen last Tuesday with significantly worse exam. Cx obtained, started on Levaquin per previous cx. PETR's were scheduled. Advised to obtain labs and xray for concern of osteo, patient did not obtain. She went to ED on 06/23, left AMA prior to abx, WBC 13, inflammatory markers negative, xray with no specific erosive changes with recommendation for MRI. CX grew Staph Cohnii, sensitive to Clindamycin, sent to pharmacy on 06/24, patient did not order picker. Today, patient's cellulitis has worsened with significant increase in pain, erythema, swelling and warmth. Denies fever. Reports malaise and intermittent nausea, no vomiting. She was admitted to IV abx and r/o osteomyelitis. [facility] History I have reviewed the patient's past medical history: Yes Medical History: Reports:: Arrhythmia, Atrial Fibrillation, Congestive Heart Failure, Hyperlipidemia, Hypertension Denies:: Diabetes Mellitus Type 1, Diabetes Mellitus Type 2, Internal Pacemaker, Lung Disease, Seizures *Have you ever received a pneumonia vaccine?: No *Have you received a flu vaccine this season?: Yes Other Medical History: Reports: Thyroid Disease Other Surgeries: Yes: Colonoscopy. No: Pacemaker - *Social History Last grade of school completed: High school graduate Smoking Status: Never smoker Alcohol Intake: never Substance Use Type: denies use *Occupational Status:: retired Housing: house Household Members: none *Travel in the last 8 weeks: None Family Hx:: No significant family history Review of Systems - Review of Systems Review of systems:: pertinent systems reviewed and negative unless documented below - Constitutional Reports lack of energy, Reports malaise, Reports weakness - *Cardiovascular Reports shortness of breath, Reports leg sores, Reports foot swelling - *Respiratory Reports shortness of breath - *Gastrointestinal Reports nausea - *Musculoskeletal Reports abnormal walking - Integumentary/Breasts Comments: LLE wounds Meds Home Medications Medication Instructions Recorded Confirmed Type Levothyroxine Sodium 100 mcg PO DAILY 02/22/18 06/26/21 History [Levothyroxine 100mcg (0.1MG) Tab] Atorvastatin Calcium [Lipitor 80mg 80 mg PO HS 01/01/20 06/26/21 History Tab] Furosemide [Furosemide 40MG tAB*] 40 mg PO DAILY 01/01/20 06/26/21 History Hydrocortisone [Cortef] 50 mg PO DAILY 01/01/20 06/26/21 History Potassium Chloride 20 meq PO DAILY 01/01/20 06/26/21 History Spironolactone [Aldactone 25mg 25 mg PO BID 01/01/20 06/26/21 History Tab] Apixaban [Eliquis 5mg tab] 5 mg PO BID 06/26/21 06/26/21 History Allergies Allergy/AdvReac Type Severity Reaction Status Date / Time No Known Allergies Allergy Verified 02/22/18 13:57 Exam Vital signs and Labs for Last 24 Hours: Temp Pulse Resp BP Pulse Ox 98.6 F 75 16 142/71 H 96 06/26/21 16:00 06/26/21 16:00 06/26/21 16:00 06/26/21 16:00 06/26/21 16:00 I & O for Last 24 hours: Intake & Output 06/24/21 06/25/21 06/26/21 06/27/21 11:59 11:59 11:59 11:59 Weight 199 lb 15.348 oz - *Routine HEENT Exam Head: Present: normocephalic Eye: Present: PERRL ENT: Present: mucous membranes moist - *Routine Neck Exam Present: supple - *Routine Respiratory Exam Present: CTA bilaterally - *Routine Cardiovascular Exam Present: RRR, Normal S1, Normal S2 - *Routine Abdominal Exam Present: soft, normoactive bowel sounds - *Routine Rectal Exam Rectal:: deferred - *Routine Genitalia Exam Genitalia:: deferred - *Rou
--- NOTE | 2021-06-26 18:38 | XR_ITS ---
PROCEDURE INFORMATION: Exam: XR Left Tibia and Fibula Exam date and time: 06/26/2021 6:38 PM Age: 70 years old Clinical indication: Cellulitis; Lower leg; Left; Additional info: Cellulitis R/O osteo TECHNIQUE: Imaging protocol: XR Left tibia and fibula. Views: 2 views. COMPARISON: CR XR TIBIA FIBULA LT 2V 06/23/2021 6:31 PM FINDINGS: Bones/joints: There is no evidence of acute fracture.There is no evidence of malalignment or dislocation. Degenerative changes in the patellofemoral joint and the tibiotalar joint. No definite osteolytic process to suggest osteomyelitis. Soft tissues: Normal. IMPRESSION: 1. There is no evidence of acute fracture.There is no evidence of malalignment or dislocation. 2. No definite osteolytic process to suggest osteomyelitis.
[2021-06-26 18:49] VITALS: O2SAT 97
[2021-06-26 20:00] VITALS: BP 120/62; PULSE 73; RESP 18; TEMP 36.8; O2SAT 95
[2021-06-27 03:07] VITALS: BP 113/63; PULSE 70; RESP 16; TEMP 36.7; O2SAT 94
[2021-06-27 05:00] VITALS: BMI 31.8
[2021-06-27 06:11] LABS: Chloride 107 mmol/L (98-107); Potassium 4.8 mmoL/L (3.5-5.1); Sodium 143 mmol/L (136-145)
[2021-06-27 06:14] LABS: Alanine Aminotransferase 13 U/L (12-78); Albumin Level 3.1 g/dl (3.5-5.0); Albumin/Globulin Ratio 1.6 (1.1-1.8); Alkaline Phosphatase 56 U/L (38-126); Anion Gap 12.8 mEq/L (5-15); Aspartate Amino Transferase 19 U/L (14-36); Bilirubin,Total 0.2 mg/dl (0.2-1.3); Blood Urea Nitrogen 25 mg/dl (7-17); Calcium 8.7 mg/dl (8.4-10.2); Carbon Dioxide 28 mmol/L (22.0-30.0); Creatinine Clearance Estimated 74 mL/min (50-200); Estimated Glomerular Filt Rate 62 ml/min (>60); GFR (African American) 75 ML/MIN (>60); Glucose 75 mg/dl (74-100); Total Protein,Serum 5.1 g/dl (6.3-8.2)
[2021-06-27 06:19] LABS: Basophils # 0.1 K/mm3 (0-0.2); Basophils % 0.5 % (0.1-2.0); Eosinophils # 0.2 K/mm3 (0.0-0.4); Eosinophils % 1.6 % (0.1-12.0); Hemoglobin 12.2 g/dL (12.2-16.2); Lymphocytes # 2.2 K/mm3 (0.7-4.5); Lymphocytes % 21.5 % (10-50); Mean Corpuscular HGB Conc 31.2 g/dL (31.8-35.4); Mean Corpuscular Hemoglobin 29.9 pg (27.0-31.2); Mean Corpuscular Volume 95.8 fl (81-99); Mean Platelet Volume 8.3 fl (7.4-10.4); Monocytes # 0.5 K/mm3 (0.1-1.0); Monocytes % 5.2 % (1.7-9.3); Neutrophils # 7.3 K/mm3 (1.8-7.8); Neutrophils % 71.2 % (37.0-80.0); Platelet Count 332 K/mm3 (142-424); Red Blood Count 4.07 M/mm3 (4.20-5.40); Red Cell Distribution Width 14.9 % (11.5-17.5); White Blood Count 10.2 K/mm3 (4.8-10.8)
[2021-06-27 08:00] VITALS: BP 108/48; PULSE 69; RESP 16; TEMP 36.9; O2SAT 90
--- NOTE | 2021-06-27 09:07 | P.PN_ITS ---
Internal Medicine - PN: Subj *Date: 06/27/21 *Time: 09:07 Interval history: Patient sleeping, when awakened in no distress, no significant complaints except for some pain around her leg because of perceived fluid accumulation. Exam Vital signs and Labs for Last 24 Hours: Temp Pulse Resp BP Pulse Ox 98.0 F 70 16 113/63 94 L 06/27/21 03:07 06/27/21 03:07 06/27/21 03:07 06/27/21 03:07 06/27/21 03:07 Laboratory Results - last 24 hr 06/27/21 05:21: WBC 10.2, RBC 4.07 L, Hgb 12.2, Hct 39.0, MCV 95.8, MCH 29.9, MCHC 31.2 L, RDW 14.9, Plt Count 332, MPV 8.3, Neut % (Auto) 71.2, Lymph % (Auto) 21.5, [place] % (Auto) 5.2, Eos % (Auto) 1.6, Baso % (Auto) 0.5, Neut # (Auto) 7.3, Lymph # (Auto) 2.2, [place] # (Auto) 0.5, Eos # (Auto) 0.2, Baso # (Auto) 0.1 06/27/21 05:21: Sodium 143, Potassium 4.8, Chloride 107, Carbon Dioxide 28, Anion Gap 12.8, BUN 25 H, Creatinine 0.90, Estimated Creat Clear 74, Estimated GFR 62, Est GFR ( Amer) 75, Glucose 75, Calcium 8.7, Total Bilirubin 0.2, AST 19, ALT 13, Alkaline Phosphatase 56, Total Protein 5.1 L, Albumin 3.1 L D, Globulin 2.0, Albumin/Globulin Ratio 1.6 I & O for Last 24 hours: Intake & Output 06/24/21 06/25/21 06/26/21 06/27/21 11:59 11:59 11:59 11:59 Intake Total 460 / 460 Balance 460 / 460 Weight 196 lb 3.2 oz Narrative: Oropharynx clear, breathing easily. Neurologically intact, heart rate regular. Abdomen soft. Leg continues to have significant scaling and redness, crusting flaking skin lesions on the left anterior schuster. Wrapped in dry dressing. Good distal pulses but streaking is fairly impressive up and down the leg. Assessment and Plan (1) Cellulitis of left leg Status: Acute Category: Medical Code(s): L03.116 - Cellulitis of left lower limb (2) Chronic ulcer of leg Status: Chronic Qualifiers: Laterality: left Non-pressure ulcer stage: with fat layer exposed Qualified Code(s): L97.922 - Non-pressure chronic ulcer of unspecified part of left lower leg with fat layer exposed Category: Medical Code(s): L97.909 - Non-pressure chronic ulcer of unspecified part of unspecified lower leg with unspecified severity (3) CHF (congestive heart failure) Status: Chronic Qualifiers: Heart failure type: diastolic Heart failure chronicity: chronic Qualified Code(s): I50.32 - Chronic diastolic (congestive) heart failure Category: Medical Code(s): I50.9 - Heart failure, unspecified (4) HLD (hyperlipidemia) Status: Chronic Category: Medical Code(s): E78.5 - Hyperlipidemia, unspecified (5) HTN (hypertension) Status: Chronic Category: Medical Code(s): I10 - Essential (primary) hypertension (6) Pituitary insufficiency Status: Chronic Category: Medical Code(s): E23.0 - Hypopituitarism - Assessment and plan all Dx Assessment and Plan for all problems:: Start home medications except for diuretics. Wound care evaluation. Continue IV antibiotics given failure of outpatient therapy. Nuclear medicine bone scan to make sure were not dealing with osteomyelitis.
--- NOTE | 2021-06-27 09:18 | PC.NURSE ---
Notified PT oncbala about wound eval for this patient.
--- NOTE | 2021-06-27 09:39 | HMH.PHAINT ---
MEDICATION RECONCILIATION COMPLETE USING EXTERNAL PHARMACY FILL HISTORY, RAYMON REPORT, AND CALL TO [facility].
--- NOTE | 2021-06-27 09:48 | HMH.PHAVTE ---
[facility] Pharmacy VTE Monitoring - Patient Demographics Admission date: 06/27/21 Report Date: 06/27/21 Time: 09:48 Allergies/Adverse Reactions: Patient Allergies No Known Allergies Allergy (Verified 02/22/18 13:57) Height: 1.67 m Weight: 88.995 kg Patient Problems: Current Active Problems CHF (congestive heart failure) (Chronic) Pituitary insufficiency (Chronic) HTN (hypertension) (Chronic) HLD (hyperlipidemia) (Chronic) Chronic ulcer of leg (Chronic) Cellulitis of left leg (Acute) - VTE Risk Labs: VTE Related Lab Results Hgb 12.2 g/dL (12.2-16.2) 06/27/21 05:21 Hct 39.0 % (37.0-47.0) 06/27/21 05:21 Plt Count 332 K/mm3 (142-424) 06/27/21 05:21 BUN 25 mg/dl (7-17) H 06/27/21 05:21 Creatinine 0.90 mg/dl (0.52-1.04) 06/27/21 05:21 Estimated Creat Clear 74 mL/min (50-200) 06/27/21 05:21 Was VTE Risk Assessment Performed: Yes VTE Risk Level: Moderate Risk Clinical Trial Participant: No - Prophylaxis VTE Prophylaxis Ordered?: Yes Types of VTE Prophylaxis: TEDS Knee High Location of Applied Device: Refused
--- NOTE | 2021-06-27 12:02 | HMH.PTWOUND ---
Rehab Inpt Wound Evaluation Rehab IP Wound Evaluation Start: 06/26/21 18:38 Freq: ONCE Status: Active Protocol: Document 06/27/21 11:32 PDESEROUX (Rec: 06/27/21 12:01 [email or web address] [id number]) Rehab PT Wound Assessment Patient Status Premedicated Prior to Dressing Change No Subjective Subjective Pt. is a 70 year old female who presents to [facility] Inpatient care w/ c/o of chronic and constant LLE P! secondary to visual ulcers observed d/t cellulitis of insidious onset 9 months ago per pt. report. Pt. reports symptoms can worsen to a 6/10 when my legs are just hanging there, but states having some symptom relief w/ activity. Pt. reports she's been seeing Home health P.T. 2x/wk. to address current complaint where they were using Silver Collagen to treat her wounds, but states it hasn't been working. Pt. also reported she had been taking anti-biotics orally, but stated not having any symptom relief w/ the oral anti-biotic . Pt. reports she lives alone in a 1-story home. Pt. reports she was independent w/ ADLs and a single point cane(SPC) prior to admittance to [facility]. Pt . reports she would like to continue w/ wound care here at the hospital for optimal healing after she is D/C, but states having a conflict w/ trying to find a ride. PMH includes hypothyroidism, hyperlipidemia, HTN, diastolic CHF, A fib, pituitary insufficiency and chronic LE ulcers. Wound Left Medial [place] Wound Type Cellulitis Is This a Chronic Wound Yes Wound Staging Stage II Query Text:Stage I - Unbroken, red skin, no blanching. Stage II - Skin broken, superficial skin loss involving epidermis alone or also dermis. Partial loss of skin layers.
--- NOTE | 2021-06-27 12:42 | PC.NURSE ---
pt/wound care in to see pt
[2021-06-27 16:00] VITALS: BP 113/47; PULSE 77; RESP 18; TEMP 36.8; O2SAT 95
[2021-06-27 19:39] VITALS: BP 102/63; PULSE 75; RESP 16; TEMP 36.9; O2SAT 93
[2021-06-28 03:37] VITALS: BP 110/60; PULSE 70; RESP 17; TEMP 36.8; O2SAT 93
[2021-06-28 04:33] VITALS: BMI 31.8
[2021-06-28 06:36] LABS: Basophils # 0.1 K/mm3 (0-0.2); Basophils % 0.6 % (0.1-2.0); Eosinophils # 0.2 K/mm3 (0.0-0.4); Hematocrit 42.8 % (37.0-47.0); Hemoglobin 12.9 g/dL (12.2-16.2); Lymphocytes # 1.7 K/mm3 (0.7-4.5); Lymphocytes % 15.8 % (10-50); Mean Corpuscular HGB Conc 30.2 g/dL (31.8-35.4); Mean Corpuscular Hemoglobin 29.4 pg (27.0-31.2); Mean Corpuscular Volume 97.1 fl (81-99); Mean Platelet Volume 8.4 fl (7.4-10.4); Monocytes # 0.6 K/mm3 (0.1-1.0); Monocytes % 5.6 % (1.7-9.3); Neutrophils # 8.5 K/mm3 (1.8-7.8); Neutrophils % 76.1 % (37.0-80.0); Platelet Count 342 K/mm3 (142-424); Red Cell Distribution Width 14.9 % (11.5-17.5); White Blood Count 11.1 K/mm3 (4.8-10.8)
[2021-06-28 07:28] LABS: Chloride 107 mmol/L (98-107); Sodium 144 mmol/L (136-145)
[2021-06-28 07:29] LABS: Potassium 5.3 mmoL/L (3.5-5.1)
[2021-06-28 07:30] VITALS: BP 104/46; PULSE 70; RESP 16; TEMP 36.9; O2SAT 95
[2021-06-28 07:32] LABS: Anion Gap 13.3 mEq/L (5-15); Blood Urea Nitrogen 17 mg/dl (7-17); Calcium 9.3 mg/dl (8.4-10.2); Carbon Dioxide 29 mmol/L (22.0-30.0); Creatinine Clearance Estimated 73 mL/min (50-200); Estimated Glomerular Filt Rate 62 ml/min (>60); GFR (African American) 75 ML/MIN (>60); Glucose 72 mg/dl (74-100)
--- NOTE | 2021-06-28 08:41 | HMH.ACPN2 ---
Internal Medicine - PN: Subj *Date: 06/28/21 *Time: 08:41 Interval history: Patient slept well. Has no complaints, lots of questions about timing of discharge, testing, antibiotics, etc. Physical therapy note reviewed and appreciated. Sounds like a great plan to ramp up more appropriate wound care and skin care. Exam Vital signs and Labs for Last 24 Hours: Temp Pulse Resp BP Pulse Ox 98.4 F 70 16 104/46 L 95 06/28/21 07:30 06/28/21 07:30 06/28/21 07:30 06/28/21 07:30 06/28/21 07:30 Laboratory Results - last 24 hr 06/28/21 05:33: WBC 11.1 H, RBC 4.40, Hgb 12.9, Hct 42.8, MCV 97.1, MCH 29.4, MCHC 30.2 L, RDW 14.9, Plt Count 342, MPV 8.4, Neut % (Auto) 76.1, Lymph % (Auto) 15.8, [place] % (Auto) 5.6, Eos % (Auto) 2.0, Baso % (Auto) 0.6, Neut # (Auto) 8.5 H, Lymph # (Auto) 1.7, [place] # (Auto) 0.6, Eos # (Auto) 0.2, Baso # (Auto) 0.1 06/28/21 05:33: Sodium 144, Potassium 5.3 H, Chloride 107, Carbon Dioxide 29, Anion Gap 13.3, BUN 17 D, Creatinine 0.90, Estimated Creat Clear 73, Estimated GFR 62, Est GFR ( Amer) 75, Glucose 72 L, Calcium 9.3 I & O for Last 24 hours: Intake & Output 06/25/21 06/26/21 06/27/21 06/28/21 11:59 11:59 11:59 11:59 Intake Total 700 / 700 1320 / 1320 Balance 700 / 700 1320 / 1320 Weight 196 lb 3.2 oz 196 lb Narrative: Alert, pleasant. Heart rate regular, lungs clear, abdomen soft, left lower extremity wrapped in Unna boot. No redness above or below the wrapping. Right side looks clear. Assessment and Plan (1) Cellulitis of left leg Status: Acute Category: Medical Code(s): L03.116 - Cellulitis of left lower limb (2) Chronic ulcer of leg Status: Chronic Qualifiers: Laterality: left Non-pressure ulcer stage: with fat layer exposed Qualified Code(s): L97.922 - Non-pressure chronic ulcer of unspecified part of left lower leg with fat layer exposed Category: Medical Code(s): L97.909 - Non-pressure chronic ulcer of unspecified part of unspecified lower leg with unspecified severity (3) CHF (congestive heart failure) Status: Chronic Qualifiers: Heart failure type: diastolic Heart failure chronicity: chronic Qualified Code(s): I50.32 - Chronic diastolic (congestive) heart failure Category: Medical Code(s): I50.9 - Heart failure, unspecified (4) HLD (hyperlipidemia) Status: Chronic Category: Medical Code(s): E78.5 - Hyperlipidemia, unspecified (5) HTN (hypertension) Status: Chronic Category: Medical Code(s): I10 - Essential (primary) hypertension (6) Pituitary insufficiency Status: Chronic Category: Medical Code(s): E23.0 - Hypopituitarism (7) Immunosuppressed status Status: Acute Category: Medical Code(s): D84.9 - Immunodeficiency, unspecified - Assessment and plan all Dx Assessment and Plan for all problems:: Continue clindamycin and vancomycin given failure of outpatient therapy and immunosuppression status from her chronic steroids from pituitary insufficiency issues. Bone scan tomorrow. If clear and blood cultures are clear and white count remains normal consider discharge on appropriate antibiotic therapy. We will need to try to arrange therapy wound care at our facility to continue more aggressive care of this significant wound if able to go home. She has transportation issues and I will ask our care management folks to be involved.
--- NOTE | 2021-06-28 13:52 | HMH.PTEV ---
Physical Therapy Evaluation Rehab PT IP Evaluation Start: 06/27/21 09:05 Freq: ONCE Status: Active Protocol: Document 06/28/21 13:46 PDESEROUX (Rec: 06/28/21 13:52 [email or web address] [id number]) Subjective/History History History Pt. is a 70 year old female who presents to [facility] Inpatient care w/ c/o of chronic and constant LLE P! secondary to visual ulcers observed d/t cellulitis of insidious onset 9 months ago per pt. report. Pt. reports symptoms can worsen to a 6/10 when my legs are just hanging there, but states having some symptom relief w/ activity. Pt. reports she's been seeing Home health P.T. 2x/wk. to address current complaint where they were using Silver Collagen to treat her wounds, but states it hasn't been working. Pt. also reported she had been taking anti-biotics orally, but stated not having any symptom relief w/ the oral anti-biotic . Pt. reports she lives alone in a 1-story home. Pt. reports she was independent w/ ADLs and a single point cane(SPC) prior to admittance to [facility]. Pt . reports she would like to continue w/ wound care here at the hospital for optimal healing after she is D/C, but states having a conflict w/ trying to find a ride. PMH includes hypothyroidism, hyperlipidemia, HTN, diastolic CHF, A fib, pituitary insufficiency and chronic LE ulcers. Subjective Subjective Pt. reports, I may be able to get to leave tomorrow if everything checks in with the wound clinic. Pt. reports possibly having her friend or federal transportation take her to/from the wound clinic
[2021-06-28 14:07] VITALS: BMI 31.8
[2021-06-28 14:39] VITALS: BP 141/85; PULSE 80; RESP 18; TEMP 36.8; O2SAT 96
[2021-06-28 20:00] VITALS: BP 121/55; PULSE 79; RESP 24; TEMP 36.7; O2SAT 100
[2021-06-29 04:34] VITALS: BP 159/77; PULSE 70; RESP 19; TEMP 36.6; O2SAT 96
[2021-06-29 05:00] VITALS: BMI 31.7
[2021-06-29 06:40] LABS: Basophils # 0.1 K/mm3 (0-0.2); Basophils % 0.4 % (0.1-2.0); Eosinophils # 0.2 K/mm3 (0.0-0.4); Eosinophils % 1.7 % (0.1-12.0); Hematocrit 40.2 % (37.0-47.0); Hemoglobin 12.8 g/dL (12.2-16.2); Lymphocytes # 1.7 K/mm3 (0.7-4.5); Mean Corpuscular HGB Conc 31.8 g/dL (31.8-35.4); Mean Corpuscular Hemoglobin 29.8 pg (27.0-31.2); Mean Corpuscular Volume 93.8 fl (81-99); Mean Platelet Volume 8.4 fl (7.4-10.4); Monocytes # 0.6 K/mm3 (0.1-1.0); Monocytes % 5.7 % (1.7-9.3); Neutrophils # 8.6 K/mm3 (1.8-7.8); Neutrophils % 77.2 % (37.0-80.0); Platelet Count 339 K/mm3 (142-424); Red Blood Count 4.28 M/mm3 (4.20-5.40); Red Cell Distribution Width 14.8 % (11.5-17.5); White Blood Count 11.2 K/mm3 (4.8-10.8)
[2021-06-29 06:48] LABS: Chloride 107 mmol/L (98-107)
[2021-06-29 06:49] LABS: Potassium 4.6 mmoL/L (3.5-5.1); Sodium 143 mmol/L (136-145)
[2021-06-29 06:51] LABS: Alanine Aminotransferase 12 U/L (12-78); Alkaline Phosphatase 56 U/L (38-126); Anion Gap 11.6 mEq/L (5-15); Aspartate Amino Transferase 19 U/L (14-36); Bilirubin,Total 0.3 mg/dl (0.2-1.3); Blood Urea Nitrogen 22 mg/dl (7-17); Carbon Dioxide 29 mmol/L (22.0-30.0); Creatinine Clearance Estimated 73 mL/min (50-200); Estimated Glomerular Filt Rate 55 ml/min (>60); GFR (African American) 66 ML/MIN (>60)
[2021-06-29 06:52] LABS: Albumin Level 3.4 g/dl (3.5-5.0); Albumin/Globulin Ratio 1.4 (1.1-1.8); Calcium 9.1 mg/dl (8.4-10.2); Globulin 2.5 g/dL (1.3-3.2); Glucose 92 mg/dl (74-100); Total Protein,Serum 5.9 g/dl (6.3-8.2)
[2021-06-29 07:32] VITALS: BP 115/61; PULSE 83; RESP 16; TEMP 36.9; O2SAT 93
--- NOTE | 2021-06-29 08:47 | P.PN_ITS ---
Internal Medicine - PN: Subj *Date: 06/29/21 *Time: 08:47 Interval history: No changes overnight. White count looks good. Patient has no complaints. Exam Vital signs and Labs for Last 24 Hours: Temp Pulse Resp BP Pulse Ox 98.4 F 83 16 115/61 93 L 06/29/21 07:32 06/29/21 07:32 06/29/21 07:32 06/29/21 07:32 06/29/21 07:32 Laboratory Results - last 24 hr 06/29/21 04:55: WBC 11.2 H, RBC 4.28, Hgb 12.8, Hct 40.2, MCV 93.8, MCH 29.8, MCHC 31.8, RDW 14.8, Plt Count 339, MPV 8.4, Neut % (Auto) 77.2, Lymph % (Auto) 15.0, [place] % (Auto) 5.7, Eos % (Auto) 1.7, Baso % (Auto) 0.4, Neut # (Auto) 8.6 H, Lymph # (Auto) 1.7, [place] # (Auto) 0.6, Eos # (Auto) 0.2, Baso # (Auto) 0.1 06/29/21 04:55: Sodium 143, Potassium 4.6, Chloride 107, Carbon Dioxide 29, Ani on Gap 11.6, BUN 22 H D, Creatinine 1.00, Estimated Creat Clear 73, Estimated GFR 55 L, Est GFR ( Amer) 66, Glucose 92 D, Calcium 9.1, Total Bilirubin 0.3, AST 19, ALT 12, Alkaline Phosphatase 56, Total Protein 5.9 L, Albumin 3.4 L , Globulin 2.5, Albumin/Globulin Ratio 1.4 I & O for Last 24 hours: Intake & Output 06/26/21 06/27/21 06/28/21 06/29/21 11:59 11:59 11:59 11:59 Intake Total 700 / 700 1320 / 1320 1200 / 1200 Balance 700 / 700 1320 / 1320 1200 / 1200 Weight 196 lb 3.2 oz 196 lb 195 lb Microbiology Reports for the Last 24 Hours: Microbiology 06/26/21 16:45 Blood Blood Culture - Preliminary NO GROWTH AFTER 48 HOURS 06/26/21 16:45 Blood Blood Culture - Preliminary NO GROWTH AFTER 48 HOURS Narrative: Alert, pleasant. No edema visible in feet. Left leg and Unna boot. No redness above or below the Unna boot. Cardiopulmonary exam and neurologic exam unchanged. Assessment and Plan (1) Cellulitis of left leg Status: Acute Category: Medical Code(s): L03.116 - Cellulitis of left lower limb (2) Chronic ulcer of leg Status: Chronic Qualifiers: Laterality: left Non-pressure ulcer stage: with fat layer exposed Qualified Code(s): L97.922 - Non-pressure chronic ulcer of unspecified part of left lower leg with fat layer exposed Category: Medical Code(s): L97.909 - Non-pressure chronic ulcer of unspecified part of unspecified lower leg with unspecified severity (3) CHF (congestive heart failure) Status: Chronic Qualifiers: Heart failure type: diastolic Heart failure chronicity: chronic Qualified Code(s): I50.32 - Chronic diastolic (congestive) heart failure Category: Medical Code(s): I50.9 - Heart failure, unspecified (4) HLD (hyperlipidemia) Status: Chronic Category: Medical Code(s): E78.5 - Hyperlipidemia, unspecified (5) HTN (hypertension) Status: Chronic Category: Medical Code(s): I10 - Essential (primary) hypertension (6) Pituitary insufficiency Status: Chronic Category: Medical Code(s): E23.0 - Hypopituitarism (7) Immunosuppressed status Status: Acute Category: Medical Code(s): D84.9 - Immunodeficiency, unspecified - Assessment and plan all Dx Assessment and Plan for all problems:: Continue IV antibiotics. Await bone scan. If negative plan for discharge. We will try to arrange outpatient home health versus PT visits with ramped up wound care.
--- NOTE | 2021-06-29 09:07 | NM_ITS ---
PROCEDURE: NM BONE 3 PHASE CLINICAL INDICATION: eval for osteomyelitis in right lower leg Wound above medial ankle COMPARISON: CR XR TIBIA FIBULA LT 2V from 06/26/2021 FINDINGS: 25.7 millicurie of technetium 99-MDP was injected and diphosphonate bone scan, radionuclide angiogram and immediate blood pool images were obtained followed by delayed images. The images from the three-phase bone scan demonstrate increased flow to the left leg and foot as well as increased intense focal activity on the delayed view in the region of the left medial ankle, compatible with osteomyelitis. IMPRESSION: Osteomyelitis of the left medial leg just above the malleolus underlying the open wound. Dictated by: Amanda Ferrera MD 06/29/2021 17:02 Amanda Ferrera MD in OV 06/29/2021 17:02
--- NOTE | 2021-06-29 10:04 | SW/DCPLANNER ---
Addendum entered by Hemalatha Velez 07/01/21 09:48: [facility] has stated that services will begin tomorrow for this patient. Addendum entered by Hemalatha Velez 07/01/21 09:20: This patient was previously established with [facility] home health services. has requested that patient be changed to [facility]: patient is agreeable. Patient information/order will be faxed to [facility]. Patient will discharge home today. Original Note: I received a referral regarding transportation for this patient. I have reviewed patients insurance Medicare/[employer] and does not qualify for free transportation. Patient is aware of [employer] and utilizing services under private pay. Patient currently receives services from [facility]. I will follow up with this patient until medically stable for discharge.
--- NOTE | 2021-06-29 10:51 | HMH.ACPN ---
Internal Medicine - PN: Subj *Date: 06/29/21 *Time: 10:51 Exam Vital signs and Labs for Last 24 Hours: Temp Pulse Resp BP Pulse Ox 98.4 F 83 16 115/61 93 L 06/29/21 07:32 06/29/21 07:32 06/29/21 07:32 06/29/21 07:32 06/29/21 07:32 Laboratory Results - last 24 hr 06/29/21 04:55: WBC 11.2 H, RBC 4.28, Hgb 12.8, Hct 40.2, MCV 93.8, MCH 29.8, MCHC 31.8, RDW 14.8, Plt Count 339, MPV 8.4, Neut % (Auto) 77.2, Lymph % (Auto) 15.0, [place] % (Auto) 5.7, Eos % (Auto) 1.7, Baso % (Auto) 0.4, Neut # (Auto) 8.6 H, Lymph # (Auto) 1.7, [place] # (Auto) 0.6, Eos # (Auto) 0.2, Baso # (Auto) 0.1 06/29/21 04:55: Sodium 143, Potassium 4.6, Chloride 107, Carbon Dioxide 29, Anion Gap 11.6, BUN 22 H D, Creatinine 1.00, Estimated Creat Clear 73, Estimated GFR 55 L, Est GFR ( Amer) 66, Glucose 92 D, Calcium 9.1, Total Bilirubin 0.3, AST 19, ALT 12, Alkaline Phosphatase 56, Total Protein 5.9 L, Albumin 3.4 L, Globulin 2.5, Albumin/Globulin Ratio 1.4 I & O for Last 24 hours: Intake & Output 06/26/21 06/27/21 06/28/21 06/29/21 23:59 23:59 23:59 23:59 Intake Total 360 / 360 1060 / 1060 1320 / 1320 480 / 480 Balance 360 / 360 1060 / 1060 1320 / 1320 480 / 480 Weight 90.7 kg 88.995 kg 89 kg 88.451 kg Microbiology Reports for the Last 24 Hours: Microbiology 06/26/21 16:45 Blood Blood Culture - Preliminary NO GROWTH AFTER 48 HOURS 06/26/21 16:45 Blood Blood Culture - Preliminary NO GROWTH AFTER 48 HOURS Assessment and Plan (1) Cellulitis of left leg Status: Acute Category: Medical Code(s): L03.116 - Cellulitis of left lower limb (2) Chronic ulcer of leg Status: Chronic Qualifiers: Laterality: left Non-pressure ulcer stage: with fat layer exposed Qualified Code(s): L97.922 - Non-pressure chronic ulcer of unspecified part of left lower leg with fat layer exposed Category: Medical Code(s): L97.909 - Non-pressure chronic ulcer of unspecified part of unspecified lower leg with unspecified severity (3) CHF (congestive heart failure) Status: Chronic Qualifiers: Heart failure type: diastolic Heart failure chronicity: chronic Qualified Code(s): I50.32 - Chronic diastolic (congestive) heart failure Category: Medical Code(s): I50.9 - Heart failure, unspecified (4) HLD (hyperlipidemia) Status: Chronic Category: Medical Code(s): E78.5 - Hyperlipidemia, unspecified (5) HTN (hypertension) Status: Chronic Category: Medical Code(s): I10 - Essential (primary) hypertension (6) Pituitary insufficiency Status: Chronic Category: Medical Code(s): E23.0 - Hypopituitarism (7) Immunosuppressed status Status: Acute Category: Medical Code(s): D84.9 - Immunodeficiency, unspecified The patient's infection will respond to the chosen ABx?: Yes Is the patient receiving the right drug, dose, and route?: Yes Could a more targeted ABx be ordered?: No (PER MD NOTE 06/29/21, CONTINUE CURRENT ABX. )
--- NOTE | 2021-06-29 13:39 | DIET.NUTRFU ---
PO intakes 75%, weight stable. No nutritional concerns at this time.
[2021-06-29 15:09] VITALS: BP 118/76; PULSE 64; RESP 17; TEMP 36.9; O2SAT 93
--- NOTE | 2021-06-29 18:16 | PC.NURSE ---
NO ACUTE CHANGES THIS SHIFT, SHE IS AOX4, DOES NOT REQUIRE O2 SUPPORT. TOLERATING PO INTAKE.
[2021-06-29 19:39] LABS: Vancomycin,Trough 16.4 ug/mL (5.0-10.0)
[2021-06-29 20:00] VITALS: BP 119/68; PULSE 62; RESP 17; TEMP 36.8; O2SAT 96; O2SAT 97
[2021-06-29 22:04] LABS: Vancomycin,Peak 32.1 ug/ml (11-39)
[2021-06-30 04:00] VITALS: BP 126/64; PULSE 68; RESP 17; TEMP 36.6; O2SAT 96
[2021-06-30 06:00] VITALS: BMI 31.7
[2021-06-30 06:36] LABS: Chloride 107 mmol/L (98-107); Potassium 4.5 mmoL/L (3.5-5.1); Sodium 142 mmol/L (136-145)
[2021-06-30 06:39] LABS: Anion Gap 13.5 mEq/L (5-15); Blood Urea Nitrogen 19 mg/dl (7-17); Carbon Dioxide 26 mmol/L (22.0-30.0); Creatinine Clearance Estimated 73 mL/min (50-200); Estimated Glomerular Filt Rate 62 ml/min (>60); GFR (African American) 75 ML/MIN (>60)
[2021-06-30 06:40] LABS: Calcium 9.4 mg/dl (8.4-10.2); Glucose 97 mg/dl (74-100)
[2021-06-30 06:41] LABS: Basophils # 0.1 K/mm3 (0-0.2); Basophils % 0.4 % (0.1-2.0); Eosinophils # 0.2 K/mm3 (0.0-0.4); Eosinophils % 1.8 % (0.1-12.0); Hematocrit 41.7 % (37.0-47.0); Hemoglobin 13.2 g/dL (12.2-16.2); Lymphocytes # 1.2 K/mm3 (0.7-4.5); Lymphocytes % 11.6 % (10-50); Mean Corpuscular HGB Conc 31.7 g/dL (31.8-35.4); Mean Corpuscular Hemoglobin 29.7 pg (27.0-31.2); Mean Corpuscular Volume 93.6 fl (81-99); Mean Platelet Volume 8.4 fl (7.4-10.4); Monocytes # 0.5 K/mm3 (0.1-1.0); Monocytes % 4.5 % (1.7-9.3); Neutrophils # 8.4 K/mm3 (1.8-7.8); Neutrophils % 81.7 % (37.0-80.0); Platelet Count 357 K/mm3 (142-424); Red Blood Count 4.46 M/mm3 (4.20-5.40); Red Cell Distribution Width 14.9 % (11.5-17.5); White Blood Count 10.3 K/mm3 (4.8-10.8)
[2021-06-30 06:51] LABS: C-Reactive Protein 25.3 mg/L (0-4)
--- NOTE | 2021-06-30 07:25 | HMH.ACPN2 ---
Internal Medicine - PN: Subj *Date: 06/30/21 *Time: 22:00 Interval history: Patient reports minimal discomfort with her leg this morning. On morning rounds she was dressed and sitting at bedside asking if she can go home. Morning labs concerning for elevated inflammatory markers. No fever this morning. Patient denies any nausea, shortness of breath, chest pain, headache. Leg starch mangle tender to palpation. Informed of osteomyelitis finding on bone scan. Patient appeared disappointed with need for orthopedic consult and further management. Tolerating p.o. intake. Exam Vital signs and Labs for Last 24 Hours: Temp Pulse Resp BP Pulse Ox 97.9 F 68 17 126/64 96 06/30/21 04:00 06/30/21 04:00 06/30/21 04:00 06/30/21 04:00 06/30/21 04:00 Laboratory Results - last 24 hr 06/29/21 18:59: Vancomycin Trough 16.4 H 06/29/21 21:15: Vancomycin Peak 32.1 06/30/21 05:15: WBC 10.3, RBC 4.46, Hgb 13.2, Hct 41.7, MCV 93.6, MCH 29.7, MCHC 31.7 L, RDW 14.9, Plt Count 357, MPV 8.4, Neut % (Auto) 81.7 H, Lymph % (Auto) 11.6, [place] % (Auto) 4.5, Eos % (Auto) 1.8, Baso % (Auto) 0.4, Neut # (Auto) 8.4 H, Lymph # (Auto) 1.2, [place] # (Auto) 0.5, Eos # (Auto) 0.2, Baso # (Auto) 0.1 06/30/21 05:15: Sodium 142, Potassium 4.5, Chloride 107, Carbon Dioxide 26, Anion Gap 13.5, BUN 19 H, Creatinine 0.90, Estimated Creat Clear 73, Estimated GFR 62, Est GFR ( Amer) 75, Glucose 97, Calcium 9.4, C-Reactive Protein 25.3 H I & O for Last 24 hours: Intake & Output 06/27/21 06/28/21 06/29/21 06/30/21 23:59 23:59 23:59 23:59 Intake Total 1060 / 1060 1320 / 1320 1080 / 1080 Balance 1060 / 1060 1320 / 1320 1080 / 1080 Weight 88.995 kg 89 kg 88.451 kg 88.479 kg Microbiology Reports for the Last 24 Hours: Microbiology 06/29/21 08:34 Nasopharyngeal Coronavirus COVID-19 PCR - Final - Constitutional no acute distress, obese - *Routine HEENT Exam Head: Present: normocephalic Eye: Present: EOMI, PERRL ENT: Present: mucous membranes moist - *Routine Neck Exam Present: supple. Absent: lymphadenopathy - *Routine Respiratory Exam Present: CTA bilaterally - *Routine Cardiovascular Exam Present: RRR - *Routine Abdominal Exam Present: tenderness - *Routine Extremities Exam Present: edema (Trace lower extremity edema, worse on the left leg. Brawny venous stasis changes to bilateral lower shins.). Absent: cyanosis, clubbing - *Routine Skin Exam Present: warm Comments: Approximately 3 cm arterial ulcer left medial lower leg with purulent discharge. Deep crevice to bone at distalmost end of ulcer, more superficial arterial wound affecting just the epidermis more proximal to large ulcer. Leg tender to palpation - *Routine Neurological Exam Present: alert, oriented X3 Assessment and Plan (1) Osteomyelitis of lower leg, left, acute Status: Acute Category: Medical Code(s): M86.162 - Other acute osteomyelitis, left tibia and fibula (2) Cellulitis of left leg Status: Acute Category: Medical Code(s): L03.116 - Cellulitis of left lower limb (3) Chronic ulcer of leg Status: Chronic Qualifiers: Laterality: left Non-pressure ulcer stage: with fat layer exposed Qualified Code(s): L97.922 - Non-pressure chronic ulcer of unspecified part of left lower leg with fat layer exposed Category: Medical Code(s): L97.909 - Non-pressure chronic ulcer of unspecified part of unspecified lower leg with unspecified severity (4) CHF (congestive heart failure) Status: Chronic Qualifiers: Heart failure type: diastolic Heart failure chronicity: chronic Qualified Code(s): I50.32 - Chronic diastolic (congestive) heart failure Category: Medical Code(s): I50.9 - Heart failure, unspecified (5) HLD (hyperlipidemia) Status: Chronic Category: Medical Code(s): E78.5 - Hyperlipidemia, unspecified (6) HTN (hypertension) Status: Chronic Category: Medical Code(s): I10 - Essential (primary) hypert
[2021-06-30 07:43] LABS: Erythrocyte Sedimentation Rate 74 mm/hr (0-30)
[2021-06-30 08:00] VITALS: BP 138/72; PULSE 78; RESP 24; TEMP 36.6; O2SAT 92
--- NOTE | 2021-06-30 08:22 | PC.NURSE ---
Office staff notified of ortho consult on pt
--- NOTE | 2021-06-30 11:14 | HMH.PHACONS ---
- Pharmacy Consult Date: 06/30/21 Time: 11:14 Referring provider: DR. ROBLES Reason for Consult:: VANCOMYCIN LEVELS Allergies and ADEs:: Allergies Allergy/AdvReac Type Severity Reaction Status Date / Time No Known Allergies Allergy Verified 02/22/18 13:57 Home Medications:: Home Medications Medication Instructions Recorded Confirmed Type Furosemide [Furosemide 40MG tAB*] 40 mg PO DAILY 01/01/20 06/26/21 History Hydrocortisone [Cortef] 50 mg PO DAILY 01/01/20 06/26/21 History Potassium Chloride 20 meq PO DAILY 01/01/20 06/26/21 History Spironolactone [Aldactone 25mg 25 mg PO DAILY 01/01/20 06/27/21 History Tab] Apixaban [Eliquis 2.5mg tab] 2.5 mg PO BID 06/27/21 06/27/21 History Atorvastatin Calcium [Lipitor 40mg 40 mg PO HS 06/27/21 06/27/21 History Tab] Levothyroxine Sodium 75 mcg PO DAILY 06/27/21 06/27/21 History [Levothyroxine 75mcg (0.075mg) Tab] Tramadol HCl [Tramadol 50mg 50 mg PO Q8HP PRN 06/27/21 06/27/21 History Tab] clindamycin HCL [Clindamycin HCl] 300 mg PO TID 06/27/21 06/27/21 History Height: 1.67 m Weight: 88.479 kg Laboratory Results:: Laboratory Results - last 24 hr 06/29/21 18:59: Vancomycin Trough 16.4 H 06/29/21 21:15: Vancomycin Peak 32.1 06/30/21 05:15: WBC 10.3, RBC 4.46, Hgb 13.2, Hct 41.7, MCV 93.6, MCH 29.7, MCHC 31.7 L, RDW 14.9, Plt Count 357, MPV 8.4, Neut % (Auto) 81.7 H, Lymph % (Auto) 11.6, [place] % (Auto) 4.5, Eos % (Auto) 1.8, Baso % (Auto) 0.4, Neut # (Auto) 8.4 H, Lymph # (Auto) 1.2, [place] # (Auto) 0.5, Eos # (Auto) 0.2, Baso # (Auto) 0.1, ESR 74 H 06/30/21 05:15: Sodium 142, Potassium 4.5, Chloride 107, Carbon Dioxide 26, Anion Gap 13.5, BUN 19 H, Creatinine 0.90, Estimated Creat Clear 73, Estimated GFR 62, Est GFR ( Amer) 75, Glucose 97, Calcium 9.4, C-Reactive Protein 25.3 H Medical History: Reports:: Arrhythmia, Atrial Fibrillation, Congestive Heart Failure, Hyperlipidemia, Hypertension Denies:: Diabetes Mellitus Type 1, Diabetes Mellitus Type 2, Internal Pacemaker, Lung Disease, Seizures Assessment and Plan (1) Cellulitis of left leg Status: Acute Category: Medical Code(s): L03.116 - Cellulitis of left lower limb (2) Chronic ulcer of leg Status: Chronic Qualifiers: Laterality: left Non-pressure ulcer stage: with fat layer exposed Qualified Code(s): L97.922 - Non-pressure chronic ulcer of unspecified part of left lower leg with fat layer exposed Category: Medical Code(s): L97.909 - Non-pressure chronic ulcer of unspecified part of unspecified lower leg with unspecified severity (3) CHF (congestive heart failure) Status: Chronic Qualifiers: Heart failure type: diastolic Heart failure chronicity: chronic Qualified Code(s): I50.32 - Chronic diastolic (congestive) heart failure Category: Medical Code(s): I50.9 - Heart failure, unspecified (4) HLD (hyperlipidemia) Status: Chronic Category: Medical Code(s): E78.5 - Hyperlipidemia, unspecified (5) HTN (hypertension) Status: Chronic Category: Medical Code(s): I10 - Essential (primary) hypertension (6) Pituitary insufficiency Status: Chronic Category: Medical Code(s): 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 RECOMMEND CONTINUING WITH VANCOMYCIN 1250 MG Q24H AT THIS TIME.
--- NOTE | 2021-06-30 12:53 | MR_ITS ---
PROCEDURE INFORMATION: Exam: MR Left Lower Extremity Without and With Contrast, Tibia Fibula Exam date and time: 06/30/2021 12:53 PM Age: 70 years old Clinical indication: Pain; Lower leg; Left; Additional info: Rule out osteomyelitis TECHNIQUE: Imaging protocol: MR of the Left lower extremity without and with contrast. Exam focused on the tibia and fibula. Contrast material: ISOVUE; Contrast volume: 17 ml; Contrast route: IV; COMPARISON: CR XR TIBIA FIBULA LT 2V 06/26/2021 7:04 PM FINDINGS: Bones/joints: Limited chronic appearing periosteal reaction medial aspect of distal metadiaphysis of the left tibia. There is no current marrow signal alteration to confirm active osteomyelitis. Tendons: There is some limited edema in the fat most evident anterior to the Achilles tendon, and around medial aspect of the ankle. This may be cellulitis or passive edema. No abscess. Muscles: Unremarkable. Soft tissues: See Tendons finding. IMPRESSION: 1. Limited chronic appearing periosteal reaction medial aspect of distal metadiaphysis of the left tibia. There is no current marrow signal alteration to confirm active osteomyelitis. 2. There is some limited edema in the fat most evident anterior to the Achilles tendon, and around medial aspect of the ankle. This may be cellulitis or passive edema. No abscess.
--- NOTE | 2021-06-30 16:38 | HMH.ORTHOCON ---
*Admission Date: 06/27/21 *Reason for consult:: Osteomyelitis right tibia *History of present illness: 70 year old female with multiple medical problems including hypothyroidism, hyperlipidemia, HTN, diastolic CHF, A fib, pituitary insufficiency and chronic LE ulcers was admitted to hospital for IV antibiotics and further evaluation for worsening cellulitis cellulitis. Patient had chronic chronic nonhealing ulcer over the anteromedial aspect of the distal third of the left leg for over 9 months. She has had multiple course of antibiotics and wound care from home health. I understand that the patient has been noncompliant with treatment instructions. As her cellulitis is worsening with increasing pain, erythema and swelling of the right leg, she was admitted to hospital over the weekend for IV antibiotics and to rule out osteomyelitis. She reports no fevers, chills or rigors. Reports malaise and intermittent nausea but no vomiting. In the hospital patient had x-rays which did not show any features suggestive of osteomyelitis. She subsequently had an isotope bone scan which was concerning for a osteomyelitis of the distal tibia. Patient is a non-smoker. No history of any previous vascular problems. Patient is on long-term steroids because of pituitary insufficiency. [facility] History I have reviewed the patient's past medical history: Yes Medical History: Reports:: Arrhythmia, Atrial Fibrillation, Congestive Heart Failure, Hyperlipidemia, Hypertension Denies:: Diabetes Mellitus Type 1, Diabetes Mellitus Type 2, Internal Pacemaker, Lung Disease, Seizures *Have you ever received a pneumonia vaccine?: No *Have you received a flu vaccine this season?: Yes Other Medical History: Reports: Thyroid Disease Other Surgeries: Yes: Colonoscopy. No: Pacemaker - *Social History Last grade of school completed: High school graduate Smoking Status: Never smoker Alcohol Intake: never Substance Use Type: denies use *Occupational Status:: retired Housing: house Household Members: none *Travel in the last 8 weeks: None Family Hx:: No significant family history Review of Systems - Review of Systems Review of systems:: pertinent systems reviewed and negative unless documented below - Constitutional Denies chills, Denies fever(s) - Eyes Denies change in vision - *Cardiovascular Denies chest pain, Denies shortness of breath - *Respiratory Denies chest congestion, Denies cough - *Gastrointestinal Denies abdominal pain - *Musculoskeletal Reports abnormal walking - *Neurologic Reports abnormal walking, Reports weakness - Hematologic/Lymphatic Denies easy bleeding, Denies easy bruising Meds Home Medications Medication Instructions Recorded Confirmed Type RX: Furosemide [Furosemide 40MG 40 mg PO DAILY 01/01/20 06/26/21 History tAB*] RX: Hydrocortisone [Cortef] 50 mg PO DAILY 01/01/20 06/26/21 History RX: Potassium Chloride 20 meq PO DAILY 01/01/20 06/26/21 History RX: Spironolactone [Aldactone 25mg 25 mg PO DAILY 01/01/20 06/27/21 History Tab] RX: Apixaban [Eliquis 2.5mg tab] 2.5 mg PO BID 06/27/21 06/27/21 History RX: Atorvastatin Calcium [Lipitor 40 mg PO HS 06/27/21 06/27/21 History 40mg Tab] RX: Levothyroxine Sodium 75 mcg PO DAILY 06/27/21 06/27/21 History [Levothyroxine 75mcg (0.075mg) Tab] RX: Tramadol HCl [Tramadol 50mg 50 mg PO Q8HP PRN 06/27/21 06/27/21 History Tab] RX: clindamycin HCL [Clindamycin 300 mg PO TID 06/27/21 06/27/21 History HCl] Allergies Allergy/AdvReac Type Severity Reaction Status Date / Time No Known Allergies Allergy Verified 02/22/18 13:57 Exam Vital signs and Labs for Last 24 Hours: Temp Pulse Resp BP Pulse Ox 97.8 F 78 24 138/72 92 L 06/30/21 08:00 06/30/21 08:00 06/30/21 08:00 06/30/21 08:00 06/30/21 08:00 Laboratory Results - last 24 hr 06/29/21 18:59: Vancomycin Trough 16.4 H 06/29/21 21:15: Vancomycin Peak 32.1 06/30/21 05:15: WB
--- NOTE | 2021-06-30 17:53 | PC.NURSE ---
PT IV ABX WERE ADMIN R/T PT BEING OFF FLOOR FOR MULTIPLE MRI'S OF AFFECTED EXTREMITIES. SHE THEN REQUESTED SHE BE ALLOWED TO EAT HER SUPPER BEFORE INITIATING INFUSION.
--- NOTE | 2021-06-30 19:26 | PC.NURSE ---
SHE IS AOX4, ABLE TO MAKE NEEDS KNOWN TO STAFF, WAS MEDICATED X2 WITH TORADOL WITH GOOD EFFECTIVENESS NOTED. VITAL SIGNS STABLE. LISSYA BOOT REAPPLIED PER WOUND CARE.
[2021-06-30 20:00] VITALS: BP 105/57; PULSE 77; RESP 18; TEMP 36.6; O2SAT 96; O2SAT 98
[2021-07-01 04:00] VITALS: BP 114/56; PULSE 74; RESP 18; TEMP 36.6; O2SAT 91
[2021-07-01 04:56] VITALS: BMI 32.0
[2021-07-01 08:00] VITALS: BP 126/61; PULSE 83; RESP 15; TEMP 36.8; O2SAT 98
--- NOTE | 2021-07-01 08:38 | HMH.DCSUM ---
General - General Admission date:: 06/26/21 Discharge date: 07/01/21 HPI HPI: 70 year old female who is medically noncompliant with h/o hypothyroidism, hyperlipidemia, HTN, diastolic CHF, A fib, pituitary insufficiency and chronic LE ulcers was seen today at home for FU on LE cellulitis. Chronic ulcer LLE has been present for months, treated for proteus infections twice in the last few months with abx and wound care per home health. Seen last Tuesday with significantly worse exam. Cx obtained, started on Levaquin per previous cx. PETR's were scheduled. Advised to obtain labs and xray for concern of osteo, patient did not obtain. She went to ED on 06/23, left AMA prior to abx, WBC 13, inflammatory markers negative, xray with no specific erosive changes with recommendation for MRI. 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 Today, patient's cellulitis has worsened with significant increase in pain, erythema, swelling and warmth. Denies fever. Reports malaise and intermittent nausea, no vomiting. She was admitted to IV abx and r/o osteomyelitis. Hospital Course Hospital Course: Patient into the hospital, IV antibiotics started. Did well with this. Blood cultures negative, white counts were normal. Given significant wound bone scan was done which was suspicious for osteomyelitis. Orthopedics was consulted for possible biopsy but they felt that an MRI would be indicated this was done which revealed periosteal inflammation without evidence of marrow signal involvement indicating low likelihood of osteomyelitis. Patient's wound improved. Plan will be to discharge home today with close follow-up in 2 days, she will continue clindamycin. We have engaged in a home health agency to do ramped up wound care with Unna boots twice weekly. And will follow her in the outpatient setting. Otherwise no medication changes. Objective Vital signs: Temp Pulse Resp BP Pulse Ox 98.2 F 83 15 126/61 98 07/01/21 08:00 07/01/21 08:00 07/01/21 08:00 07/01/21 08:00 07/01/21 08:00 no acute distress - *Routine HEENT Exam Head: Present: normocephalic Eye: Present: EOMI, PERRL ENT: Present: mucous membranes moist - *Routine Neck Exam Present: supple - *Routine Respiratory Exam Present: CTA bilaterally - *Routine Cardiovascular Exam Present: RRR - *Routine Abdominal Exam Present: soft, normoactive bowel sounds. Absent: tenderness - *Routine Extremities Exam Absent: cyanosis, clubbing, edema Comments: Currently in Unna boots. Please see nursing pictorial directory. - *Routine Skin Exam Present: warm. Absent: rash - Detailed Eye Exam Eyelids: Bilateral normal inspection Results Labs on day of discharge: Preliminary micro results at discharge 06/26/21 16:45 Blood Culture - Preliminary Blood NO GROWTH AFTER 48 HOURS 06/26/21 16:45 Blood Culture - Preliminary Blood NO GROWTH AFTER 48 HOURS DS: Diagnosis - Discharge Diagnosis (1) Osteomyelitis of lower leg, left, acute Status: Ruled-out (2) Cellulitis of left leg Status: Acute (3) Chronic ulcer of leg Status: Chronic (4) CHF (congestive heart failure) Status: Chronic (5) HLD (hyperlipidemia) Status: Chronic (6) HTN (hypertension) Status: Chronic (7) Pituitary insufficiency Status: Chronic (8) Immunosuppressed status Status: Acute Discharge Plan - Patient Discharge Instructions ACTIVITY: Continue current activity DIET: continue same diet - Follow up Plan Follow up with: Naa Nettles APRN [Primary Care Provider] - 2 days Disposition: Home Health Service Condition at discharge:: Improved Home Medications: Home Medications Medication Instructions Recorded Confirmed Type Furosemide [Furosemide 40MG tAB*] 40 mg PO DAILY 01/01/20 06/26/21 History Hydrocortisone [Cortef] 50 mg PO DAILY 01/01/20 06/26/21 History Potassium Chlori
--- NOTE | 2021-07-01 08:56 | HMH.PHAINT ---
DISCHARGE MEDICATION EDUCATION COMPLETE. PATIENT HAD NO QUESTIONS
== END 2021-07-01 09:35 | disposition home health service (06) | DRG 603 ==
PROVIDERS: Admitting Provider Internal Medicine Adolescent Medicine; PCP Nurse Practitioner Family; Visit Provider Internal Medicine Adolescent Medicine
DX: L03.116 Cellulitis of left lower limb (principal); L97.922 Non-pressure chronic ulcer of unspecified part of left lower leg with fat layer exposed; I50.32 Chronic diastolic (congestive) heart failure; E23.0 Hypopituitarism; D84.9 Immunodeficiency, unspecified; E78.5 Hyperlipidemia, unspecified; I11.0 Hypertensive heart disease with heart failure
CPT/HCPCS: 36415; 73590; 73720; 78315; 80048; 80053; 80202; 83605; 84145; 85025; 85651; 86140; 87040; 97110; 97161; 99282; A9503; A9576; C9803; U0003; U0005

== ENCOUNTER → 2021-06-26 17:50 | Outpatient (CLI) | payer MEDICARE, SELFPAY ==
[2021-06-26 18:11] LABS: Basophils % 0.3 % (0.1-2.0); Eosinophils # 0.1 K/mm3 (0.0-0.4); Eosinophils % 0.8 % (0.1-12.0); Hematocrit 42.2 % (37.0-47.0); Lymphocytes # 1.4 K/mm3 (0.7-4.5); Lymphocytes % 11.3 % (10-50); Mean Corpuscular HGB Conc 30.9 g/dL (31.8-35.4); Mean Corpuscular Hemoglobin 29.4 pg (27.0-31.2); Mean Platelet Volume 9.9 fl (7.4-10.4); Monocytes # 0.5 K/mm3 (0.1-1.0); Monocytes % 3.9 % (1.7-9.3); Neutrophils # 10.6 K/mm3 (1.8-7.8); Neutrophils % 83.7 % (37.0-80.0); Platelet Count 373 K/mm3 (142-424); Red Blood Count 4.44 M/mm3 (4.20-5.40); Red Cell Distribution Width 14.8 % (11.5-17.5); White Blood Count 12.6 K/mm3 (4.8-10.8)
[2021-06-26 18:16] LABS: Alanine Aminotransferase 16 U/L (12-78); Albumin Level 3.6 g/dl (3.5-5.0); Albumin/Globulin Ratio 1.4 (1.1-1.8); Alkaline Phosphatase 59 U/L (38-126); Anion Gap 12.9 mEq/L (5-15); Aspartate Amino Transferase 23 U/L (14-36); Bilirubin,Total 0.4 mg/dl (0.2-1.3); Blood Urea Nitrogen 24 mg/dl (7-17); Calcium 9.6 mg/dl (8.4-10.2); Carbon Dioxide 29 mmol/L (22.0-30.0); Chloride 104 mmol/L (98-107); Estimated Glomerular Filt Rate 55 ml/min (>60); GFR (African American) 66 ML/MIN (>60); Globulin 2.6 g/dL (1.3-3.2); Glucose 89 mg/dl (74-100); Potassium 4.9 mmoL/L (3.5-5.1); Sodium 141 mmol/L (136-145); Total Protein,Serum 6.2 g/dl (6.3-8.2)
[2021-06-26 18:21] LABS: C-Reactive Protein 46.4 mg/L (0-4)
[2021-06-26 18:44] LABS: Erythrocyte Sedimentation Rate 32 mm/hr (0-30)
== END ==
PROVIDERS: Visit Provider Nurse Practitioner Family
DX: L03.116 Cellulitis of left lower limb (principal)
CPT/HCPCS: 80053; 85025; 85651; 86140

== ENCOUNTER → 2021-07-08 09:55 | Outpatient (CLI) | payer MEDICARE, SELFPAY ==
[2021-07-08 10:28] LABS: Basophils # 0.1 K/mm3 (0-0.2); Basophils % 0.6 % (0.1-2.0); Eosinophils # 0.2 K/mm3 (0.0-0.4); Eosinophils % 1.7 % (0.1-12.0); Hematocrit 43.2 % (37.0-47.0); Hemoglobin 13.6 g/dL (12.2-16.2); Lymphocytes % 17.9 % (10-50); Mean Corpuscular HGB Conc 31.5 g/dL (31.8-35.4); Mean Corpuscular Hemoglobin 29.4 pg (27.0-31.2); Mean Corpuscular Volume 93.5 fl (81-99); Mean Platelet Volume 8.5 fl (7.4-10.4); Monocytes # 0.7 K/mm3 (0.1-1.0); Monocytes % 6.4 % (1.7-9.3); Neutrophils # 8.2 K/mm3 (1.8-7.8); Neutrophils % 73.4 % (37.0-80.0); Platelet Count 394 K/mm3 (142-424); Red Blood Count 4.62 M/mm3 (4.20-5.40); Red Cell Distribution Width 14.5 % (11.5-17.5); White Blood Count 11.2 K/mm3 (4.8-10.8)
[2021-07-08 11:04] LABS: Chloride 103 mmol/L (98-107); Potassium 4.2 mmoL/L (3.5-5.1); Sodium 139 mmol/L (136-145)
[2021-07-08 11:07] LABS: Anion Gap 15.2 mEq/L (5-15); Blood Urea Nitrogen 27 mg/dl (7-17); Calcium 10.1 mg/dl (8.4-10.2); Carbon Dioxide 25 mmol/L (22.0-30.0); Estimated Glomerular Filt Rate 37 ml/min (>60); GFR (African American) 45 ML/MIN (>60); Glucose 84 mg/dl (74-100)
[2021-07-08 11:13] LABS: C-Reactive Protein 33.5 mg/L (0-4)
[2021-07-08 11:33] LABS: Erythrocyte Sedimentation Rate 102 mm/hr (0-30)
== END ==
PROVIDERS: Visit Provider Nurse Practitioner Family
DX: I50.9 Heart failure, unspecified (principal); E78.5 Hyperlipidemia, unspecified; S81.802D Unspecified open wound, left lower leg, subsequent encounter; L03.116 Cellulitis of left lower limb
CPT/HCPCS: 80048; 85025; 85651; 86140; 87070; 87186; 87205

== ENCOUNTER → 2021-07-11 10:58 | Outpatient (CLI) | payer MEDICARE, SELFPAY ==
[2021-07-11 10:48] LABS: Basophils # 0.1 K/mm3 (0-0.2); Basophils % 0.5 % (0.1-2.0); Eosinophils # 0.3 K/mm3 (0.0-0.4); Eosinophils % 2.1 % (0.1-12.0); Hematocrit 40.4 % (37.0-47.0); Hemoglobin 12.6 g/dL (12.2-16.2); Lymphocytes # 1.1 K/mm3 (0.7-4.5); Lymphocytes % 8.5 % (10-50); Mean Corpuscular HGB Conc 31.3 g/dL (31.8-35.4); Mean Corpuscular Hemoglobin 29.5 pg (27.0-31.2); Mean Corpuscular Volume 94.4 fl (81-99); Mean Platelet Volume 8.5 fl (7.4-10.4); Monocytes # 0.7 K/mm3 (0.1-1.0); Neutrophils # 11.2 K/mm3 (1.8-7.8); Platelet Count 374 K/mm3 (142-424); Red Blood Count 4.28 M/mm3 (4.20-5.40); Red Cell Distribution Width 15.1 % (11.5-17.5); White Blood Count 13.3 K/mm3 (4.8-10.8)
[2021-07-11 10:54] LABS: Chloride 106 mmol/L (98-107)
[2021-07-11 10:55] LABS: Potassium 4.8 mmoL/L (3.5-5.1); Sodium 143 mmol/L (136-145)
[2021-07-11 10:57] LABS: Alanine Aminotransferase 17 U/L (12-78); Aspartate Amino Transferase 25 U/L (14-36); Blood Urea Nitrogen 25 mg/dl (7-17); Estimated Glomerular Filt Rate 55 ml/min (>60); GFR (African American) 66 ML/MIN (>60)
[2021-07-11 10:58] LABS: Albumin Level 4.2 g/dl (3.5-5.0); Albumin/Globulin Ratio 1.8 (1.1-1.8); Alkaline Phosphatase 58 U/L (38-126); Anion Gap 12.8 mEq/L (5-15); Bilirubin,Total 0.4 mg/dl (0.2-1.3); Calcium 9.5 mg/dl (8.4-10.2); Carbon Dioxide 29 mmol/L (22.0-30.0); Globulin 2.3 g/dL (1.3-3.2); Glucose 97 mg/dl (74-100); Total Protein,Serum 6.5 g/dl (6.3-8.2)
--- NOTE | 2021-07-11 11:01 | MR_ITS ---
PROCEDURE INFORMATION: Exam: MR Left Lower Extremity Without and With Contrast, Tibia Fibula Exam date and time: 07/11/2021 11:01 AM Age: 70 years old Clinical indication: Pain; Lower leg; Left; Additional info: Non-healing would of left extermity TECHNIQUE: Imaging protocol: MR of the Left lower extremity without and with contrast. Exam focused on the tibia and fibula. Contrast material: ISOVUE; Contrast volume: 17 ml; Contrast route: IV; COMPARISON: MR LOWER LEG LT WO/W CON 06/30/2021 4:01 PM FINDINGS: Bones/joints: Unchanged appearance to a chronic periosteal reaction of the medial distal metadiaphysis of left tibia. There is still no marrow edema or enhancement to confirm an active osteomyelitis however. Soft tissues: There is been some interval increase in the amount of subcutaneous edema most evident around the knee and proximal aspect of the lower extremity but also extending length lower extremity around the ankle into the dorsum of the foot. Some of this may be passive edema and some may be cellulitis. There is not a peripherally enhancing localized abscess. IMPRESSION: 1. There is been some interval increase in the amount of subcutaneous edema most evident around the knee and proximal aspect of the lower extremity but also extending length lower extremity around the ankle into the dorsum of the foot. Some of this may be passive edema and some may be cellulitis. There is not a peripherally enhancing localized abscess. 2. Unchanged appearance to a chronic periosteal reaction of the medial distal metadiaphysis of left tibia. There is still no marrow edema or enhancement to confirm an active osteomyelitis however.
[2021-07-11 11:04] LABS: C-Reactive Protein 16.8 mg/L (0-4)
[2021-07-11 11:25] LABS: Erythrocyte Sedimentation Rate 39 mm/hr (0-30)
== END ==
PROVIDERS: PCP Nurse Practitioner Family; Visit Provider Nurse Practitioner Family
DX: L97.922 Non-pressure chronic ulcer of unspecified part of left lower leg with fat layer exposed (principal); L03.116 Cellulitis of left lower limb; S81.802D Unspecified open wound, left lower leg, subsequent encounter
CPT/HCPCS: 36415; 73720; 80053; 85025; 85651; 86140; A9576

== ENCOUNTER 2021-07-13 15:36 | Outpatient (CLI) | payer MEDICARE, SELFPAY ==
--- NOTE | 2021-07-13 15:47 | PC.NURSE ---
07/13/21 1535 pt escorted here with son via [facility]. Sobia Barron RN spoke with pt and explained md orders and poc. Pt is to receive a midline placement and blood drawn for baseline labs, then receive iv antibiotics. Pt taken to procedure room in order to have midline placed.
[2021-07-13 16:05] VITALS: BP 140/68; PULSE 70; RESP 18; TEMP 36.4; O2SAT 98
[2021-07-13 16:43] VITALS: BP 142/83; PULSE 70; RESP 18; O2SAT 98
== END 2021-07-13 16:50 | disposition home or self-care (01) ==
PROVIDERS: PCP Nurse Practitioner Family; Visit Provider Nurse Practitioner Family
DX: L03.116 Cellulitis of left lower limb (principal)
CPT/HCPCS: 36410; 36569; 96365; J0878

== ENCOUNTER → 2021-07-16 06:55 | Outpatient (CLI) | payer MEDICARE, SELFPAY ==
[2021-07-16 08:50] LABS: Basophils # 0.1 K/mm3 (0-0.2); Basophils % 0.5 % (0.1-2.0); Eosinophils # 0.2 K/mm3 (0.0-0.4); Eosinophils % 2.1 % (0.1-12.0); Hematocrit 42.3 % (37.0-47.0); Hemoglobin 13.4 g/dL (12.2-16.2); Lymphocytes # 1.4 K/mm3 (0.7-4.5); Lymphocytes % 12.5 % (10-50); Mean Corpuscular HGB Conc 31.6 g/dL (31.8-35.4); Mean Corpuscular Hemoglobin 29.7 pg (27.0-31.2); Mean Corpuscular Volume 93.8 fl (81-99); Mean Platelet Volume 8.9 fl (7.4-10.4); Monocytes # 0.6 K/mm3 (0.1-1.0); Monocytes % 5.4 % (1.7-9.3); Neutrophils % 79.5 % (37.0-80.0); Platelet Count 396 K/mm3 (142-424); Red Blood Count 4.51 M/mm3 (4.20-5.40); Red Cell Distribution Width 14.7 % (11.5-17.5); White Blood Count 11.3 K/mm3 (4.8-10.8)
[2021-07-16 09:12] LABS: Alanine Aminotransferase 19 U/L (12-78); Albumin/Globulin Ratio 1.7 (1.1-1.8); Alkaline Phosphatase 56 U/L (38-126); Anion Gap 15.8 mEq/L (5-15); Aspartate Amino Transferase 26 U/L (14-36); Bilirubin,Total 0.4 mg/dl (0.2-1.3); Blood Urea Nitrogen 17 mg/dl (7-17); Calcium 9.6 mg/dl (8.4-10.2); Carbon Dioxide 23 mmol/L (22.0-30.0); Chloride 109 mmol/L (98-107); Estimated Glomerular Filt Rate 62 ml/min (>60); GFR (African American) 75 ML/MIN (>60); Globulin 2.3 g/dL (1.3-3.2); Glucose 88 mg/dl (74-100); Potassium 4.8 mmoL/L (3.5-5.1); Sodium 143 mmol/L (136-145); Total Protein,Serum 6.3 g/dl (6.3-8.2)
[2021-07-16 09:18] LABS: C-Reactive Protein 16.9 mg/L (0-4)
[2021-07-16 09:27] LABS: Erythrocyte Sedimentation Rate 21 mm/hr (0-30)
== END ==
PROVIDERS: Visit Provider Internal Medicine Adolescent Medicine
DX: I10 Essential (primary) hypertension (principal); L03.116 Cellulitis of left lower limb; Z51.81 Encounter for therapeutic drug level monitoring
CPT/HCPCS: 36415; 80053; 80202; 85025; 85651; 86140

== ENCOUNTER → 2021-10-09 16:58 | Outpatient (CLI) | payer MEDICARE, SELFPAY ==
[2021-10-09 17:41] LABS: Basophils # 0.2 K/mm3 (0-0.2); Basophils % 1.1 % (0.1-2.0); Eosinophils # 0.1 K/mm3 (0.0-0.4); Hematocrit 44.3 % (37.0-47.0); Hemoglobin 13.8 g/dL (12.2-16.2); Lymphocytes # 1.1 K/mm3 (0.7-4.5); Lymphocytes % 7.5 % (10-50); Mean Corpuscular HGB Conc 31.2 g/dL (31.8-35.4); Mean Corpuscular Hemoglobin 28.8 pg (27.0-31.2); Mean Corpuscular Volume 92.4 fl (81-99); Mean Platelet Volume 10.2 fl (7.4-10.4); Monocytes # 0.7 K/mm3 (0.1-1.0); Monocytes % 4.8 % (1.7-9.3); Neutrophils # 12.4 K/mm3 (1.8-7.8); Neutrophils % 85.6 % (37.0-80.0); Platelet Count 298 K/mm3 (142-424); Red Blood Count 4.79 M/mm3 (4.20-5.40); Red Cell Distribution Width 15.3 % (11.5-17.5); White Blood Count 14.5 K/mm3 (4.8-10.8)
[2021-10-09 17:48] LABS: MANUAL DIFFERENTIAL MANUAL DIFFERENTIAL (MANUAL DIFF)
[2021-10-09 18:52] LABS: Chloride 106 mmol/L (98-107); Potassium 4.5 mmoL/L (3.5-5.1); Sodium 140 mmol/L (136-145)
[2021-10-09 18:55] LABS: Alanine Aminotransferase 31 U/L (12-78); Albumin Level 4.5 g/dl (3.5-5.0); Alkaline Phosphatase 60 U/L (38-126); Anion Gap 13.5 mEq/L (5-15); Aspartate Amino Transferase 35 U/L (14-36); Bilirubin,Total 0.8 mg/dl (0.2-1.3); Blood Urea Nitrogen 23 mg/dl (7-17); Carbon Dioxide 25 mmol/L (22.0-30.0); Estimated Glomerular Filt Rate 55 ml/min (>60); GFR (African American) 66 ML/MIN (>60); Globulin 2.2 g/dL (1.3-3.2); Total Protein,Serum 6.7 g/dl (6.3-8.2)
[2021-10-09 18:56] LABS: Calcium 9.6 mg/dl (8.4-10.2); Glucose 119 mg/dl (74-100)
[2021-10-09 18:57] LABS: Eosinophils % 1 % (0-3); Lymphocytes % 9 % (10-50); Monocytes % 3 % (2-9); Neutrophils % 87 % (42-76); Total Cells Counted 100
[2021-10-09 18:58] LABS: Platelet Estimate Normal; Spherocytes 1+
[2021-10-09 19:26] LABS: Thyroid Stimulating Hormone < 0.02 uIU/mL (0.465-4.68)
== END ==
PROVIDERS: PCP Nurse Practitioner Family; Visit Provider Nurse Practitioner Family
DX: I48.0 Paroxysmal atrial fibrillation (principal); I50.32 Chronic diastolic (congestive) heart failure; E03.9 Hypothyroidism, unspecified; L97.229 Non-pressure chronic ulcer of left calf with unspecified severity
CPT/HCPCS: 80053; 84443; 85007; 85025

== ENCOUNTER 2022-06-25 11:15 | Observation (INO) | payer MEDICARE, SELFPAY ==
[2022-06-25] VITALS (13 sets, daily range): BP systolic 101–128; BP diastolic 60–99; PULSE 54–126; RESP 12–22; TEMP 36.5–37.1; O2SAT 92–98; BMI 32.3; BMI 31.0
--- NOTE | 2022-06-25 11:35 | CT_ITS ---
FINAL REPORT TECHNIQUE: Thin section axial CT with IV contrast supplemented with multiplanar reconstruction under CT angiogram protocol. This study was performed with techniques to keep radiation doses as low as reasonably achievable (ALARA). Individualized dose reduction techniques using automated exposure control or adjustment of mA and/or kV according to the patient''s size were employed. NASCET criteria was utilized during interpretation. CLINICAL HISTORY: syncope FINDINGS: Aortic arch: Arch shows no significant narrowing. Great vessel origins are widely patent. Right carotid: No significant stenosis is seen of the cervical common or internal carotid artery. Left carotid: No significant stenosis is seen of the cervical common or internal carotid artery. Vertebral: The vertebral arteries are codominant. No significant stenosis is present. IMPRESSION: No evidence of stenosis. Reviewed, Interpreted and Dictated by Willard Kauffman III, MD Transcribed by Mallory Holguin Authenticated and [facility]
--- NOTE | 2022-06-25 11:35 | XR_ITS ---
FINAL REPORT CLINICAL HISTORY: fall, severe R shoulder pain FINDINGS: Right shoulder Four views were obtained. There is no acute fracture or dislocation. There are mild degenerative changes of the shoulder. No soft tissue abnormality is identified. IMPRESSION: No acute process. Reviewed, Interpreted and Dictated by Willard Kauffman III, MD Transcribed by Mallory Holguin Authenticated and [facility]
--- NOTE | 2022-06-25 11:35 | CT_ITS ---
FINAL REPORT CLINICAL HISTORY: fall on eliquis, struck R side of head COMPARISON: 11/21/2016 FINDINGS: Axial images of the head were obtained without contrast. Coronal reformatted images were also obtained. This study was performed with techniques to keep radiation doses as low as reasonably achievable (ALARA). Individualized dose reduction techniques using automated exposure control or adjustment of mA and/or kV according to the patient''s size were employed. There is generalized age-appropriate atrophy. Periventricular low-attenuation areas are seen consistent with mild chronic ischemic changes. There is an area of CSF in the anterior left temporal region, may represent an arachnoid cyst or cystic encephalomalacia. There is no evidence of intracranial hemorrhage. There is no evidence of acute infarct. There is no evidence of shift of the midline structures. No skull abnormality is seen on the bone window images. IMPRESSION: Atrophy and mild periventricular chronic ischemic changes. Area in the left temporal region, may represent an arachnoid cyst or cystic encephalomalacia. Reviewed, Interpreted and Dictated by Willard Kauffman III, MD Transcribed by Mallory Holguin Authenticated and [facility]
--- NOTE | 2022-06-25 11:35 | XR_ITS ---
FINAL REPORT CLINICAL HISTORY: fall, severe R shoulder pain FINDINGS: Right elbow Three views were obtained. There is no acute fracture or dislocation. The joint spaces appear normal. There is chronic calcification adjacent to the lateral humeral epicondyle. IMPRESSION: No acute process. Reviewed, Interpreted and Dictated by Willard Kauffman III, MD Transcribed by Mallory Holguin Authenticated and [facility]
--- NOTE | 2022-06-25 11:35 | CT_ITS ---
FINAL REPORT TECHNIQUE: Thin section axial CT with IV contrast supplemented with multiplanar reconstruction under CT angiogram protocol. 3-D reconstructions were performed. This study was performed with techniques to keep radiation doses as low as reasonably achievable (ALARA). Individualized dose reduction techniques using automated exposure control or adjustment of mA and/or kV according to the patient''s size were employed. CLINICAL HISTORY: . FINDINGS: The distal vertebral, basilar and distal internal carotid arteries have an unremarkable appearance. No aneurysm is seen. Major intracranial vessels are patent without significant stenosis. IMPRESSION: No significant stenosis. Reviewed, Interpreted and Dictated by Willard Kauffman III, MD Transcribed by Mallory Holguin Authenticated and [facility]
--- NOTE | 2022-06-25 11:35 | XR_ITS ---
FINAL REPORT CLINICAL HISTORY: fall, right hip and pelvis pain FINDINGS: Pelvis/bilateral hips Five views were obtained. There is no acute fracture or dislocation. There are mild degenerative changes. No soft tissue abnormality is identified. IMPRESSION: No acute process. If symptoms persist, CT or MRI may be helpful. Reviewed, Interpreted and Dictated by Willard Kauffman III, MD Transcribed by Mallory Holguin Authenticated and [facility]
--- NOTE | 2022-06-25 11:35 | CT_ITS ---
FINAL REPORT TECHNIQUE: Pre-and postcontrast images of the abdomen were performed by computed tomography. Extensive 3-D reconstruction images were performed. A CTA was performed. This study was performed with techniques to keep radiation doses as low as reasonably achievable (ALARA). Individualized dose reduction techniques using automated exposure control or adjustment of mA and/or kV according to the patient''s size were employed. CLINICAL HISTORY: Back and R shoulder blade pain with near-syncope FINDINGS: ABDOMEN: Precontrast images demonstrate no evidence of nephrolithiasis. No adrenal masses are identified. The liver, spleen and pancreas are unremarkable. There is a large gallstone in the gallbladder. CTA: There is no evidence of abdominal aortic aneurysm or dissection. The SMA, celiac axis, and NATALIA are patent. There is no significant stenosis or calcification. The renal arteries are patent bilaterally. There is mild vascular calcification. IMPRESSION: No evidence of renal vascular hypertension or significant renal artery stenosis. Large gallstone. Reviewed, Interpreted and Dictated by Willard Kauffman III, MD Transcribed by Mallory Holguin Authenticated and . [facility]
--- NOTE | 2022-06-25 11:35 | XR_ITS ---
FINAL REPORT CLINICAL HISTORY: fall, severe R shoulder pain FINDINGS: Right humerus Two views were obtained. There is no acute fracture or dislocation. There are mild degenerative changes of the shoulder. No soft tissue abnormality is identified. IMPRESSION: No acute process. Reviewed, Interpreted and Dictated by Willard Kauffman III, MD Transcribed by Mallory Holguin Authenticated and [facility]
--- NOTE | 2022-06-25 11:35 | CT_ITS ---
FINAL REPORT CLINICAL HISTORY: . FINDINGS: Thin section axial CT images of the chest were obtained with contrast. 3D reformatted images were also obtained. This study was performed with techniques to keep radiation doses as low as reasonably achievable (ALARA). Individualized dose reduction techniques using automated exposure control or adjustment of mA and/or kV according to the patient's size were employed. There is no evidence of pulmonary embolism. There is no evidence of thoracic aortic aneurysm or dissection. There is no evidence of mediastinal or hilar mass or adenopathy. There is no evidence of pulmonary mass or nodule. No localized inflammatory process is seen within the lungs. There is bibasilar atelectasis and small pleural effusions. IMPRESSION: No evidence of pulmonary embolism. Basilar atelectasis and small pleural effusions. Reviewed, Interpreted and Dictated by Willard Kauffman III, MD Transcribed by Mallory Holguin Authenticated and [facility]
--- NOTE | 2022-06-25 11:36 | XR_ITS ---
FINAL REPORT CLINICAL HISTORY: fall, CP and back pain COMPARISON: 02/15/2020 FINDINGS: SINGLE-VIEW CHEST There is cardiomegaly and pulmonary vascular congestion. The mediastinum is normal. There is mild bibasilar atelectasis or scar. There is dextroscoliosis in the midthoracic spine. There is no pneumothorax. IMPRESSION: Bibasilar atelectasis or scar. Reviewed, Interpreted and Dictated by Willard Kauffman III, MD Transcribed by Mallory Holguin Authenticated and [facility]
--- NOTE | 2022-06-25 11:40 | CT_ITS ---
FINAL REPORT CLINICAL HISTORY: fall, neck and back pain FINDINGS: Axial imaging of the lumbar spine was obtained without contrast. Sagittal and coronal reformatted images were also obtained and reviewed.This study was performed with techniques to keep radiation doses as low as reasonably achievable (ALARA). Individualized dose reduction techniques using automated exposure control or adjustment of mA and/or kV according to the patient''s size were employed. There is no fracture. There is levoscoliosis. Mild and moderate degenerative changes are present with vacuum disc phenomenon at several levels. There is multilevel neural foraminal narrowing, greatest on the left at L5-S1. There are presumed partially imaged gallstones. IMPRESSION: Multilevel degenerative change without acute bony abnormality. Presumed partially imaged gallstones. Reviewed, Interpreted and Dictated by Willard Kauffman III, MD Transcribed by Mallory Holguin Authenticated and [facility]
--- NOTE | 2022-06-25 11:40 | CT_ITS ---
FINAL REPORT CLINICAL HISTORY: fall, neck and back pain FINDINGS: Axial CT images of the thoracic spine were obtained without contrast. Sagittal and coronal reformatted images were also obtained. This study was performed with techniques to keep radiation doses as low as reasonably achievable (ALARA). Individualized dose reduction techniques using automated exposure control or adjustment of mA and/or kV according to the patient''s size were employed. There is a mild T2 superior endplate compression fracture with 30% loss of height. There is severe T5 compression fracture with 70% loss of anterior height. There is a moderate to severe T11 compression fracture with 60% loss of height. There is a mild T12 compression fracture with 20% loss of height. These compression fractures are age indeterminate. The T11 fracture is likely acute. There is dextroscoliosis. There is diffuse degenerative change. Bilateral atelectasis is identified. IMPRESSION: Multiple compression fractures as detailed above. The T11 fracture is likely acute. Reviewed, Interpreted and Dictated by Willard Kauffman III, MD Transcribed by Mallory Holguin Authenticated and [facility]
--- NOTE | 2022-06-25 11:40 | CT_ITS ---
FINAL REPORT CLINICAL HISTORY: fall, neck and back pain FINDINGS: Axial CT images of the cervical spine were obtained without contrast. Sagittal and coronal reformatted images were also obtained. This study was performed with techniques to keep radiation doses as low as reasonably achievable (ALARA). Individualized dose reduction techniques using automated exposure control or adjustment of mA and/or kV according to the patient''s size were employed. There is no evidence of fracture or dislocation. Mild degenerative changes are present. There is no significant central canal stenosis. IMPRESSION: No fracture or acute bony abnormality identified. Reviewed, Interpreted and Dictated by Willard Kauffman III, MD Transcribed by Mallory Holguin Authenticated and [facility]
--- NOTE | 2022-06-25 11:49 | ECG_ITS ---
APPROVED REPORT Exam: Resting ECG HR:121 bpm ECG Measurements Heart Rate 121 AXES QRSd 89 QRS 41 QT 181 T 0 QTc 253 Conclusion ATRIAL FIBRILLATION WITH RAPID VENTRICULAR RESPONSE NONSPECIFIC ST & T-WAVE ABNORMALITY ABNORMAL RHYTHM ECG UNCONFIRMED REPORT Electronically signed by : Luis E Almeida MD 06/26/2022 12:14:52
[2022-06-25 12:14] LABS: Basophils # 0.1 K/mm3 (0-0.2); Basophils % 0.6 % (0.1-2.0); Eosinophils # 0.2 K/mm3 (0.0-0.4); Eosinophils % 1.7 % (0.1-12.0); Hematocrit 42.9 % (37.0-47.0); Hemoglobin 13.4 g/dL (12.2-16.2); Lymphocytes # 0.6 K/mm3 (0.7-4.5); Lymphocytes % 5.5 % (10-50); Mean Corpuscular HGB Conc 31.3 g/dL (31.8-35.4); Mean Corpuscular Hemoglobin 30.4 pg (27.0-31.2); Mean Corpuscular Volume 97.3 fl (81-99); Mean Platelet Volume 9.5 fl (7.4-10.4); Monocytes # 0.3 K/mm3 (0.1-1.0); Monocytes % 2.8 % (1.7-9.3); Neutrophils % 89.3 % (37.0-80.0); Platelet Count 270 K/mm3 (142-424); Red Blood Count 4.41 M/mm3 (4.20-5.40); Red Cell Distribution Width 16.5 % (11.5-17.5); White Blood Count 11.2 K/mm3 (4.8-10.8)
[2022-06-25 12:15] LABS: MANUAL DIFFERENTIAL MANUAL DIFFERENTIAL (MANUAL DIFF)
--- NOTE | 2022-06-25 12:16 | HMH.EDGENADL ---
Discharge Plan Disposition Patient Disposition: Admitted As Inpatient Condition: Fair Chief Complaint: Fall Prescriptions Prescriptions: No Action bumetanide 2 mg tablet 2 mg PO DAILY levothyroxine [Euthyrox] 50 mcg tablet 50 mcg PO DAILY Label Comments: TAKE 1 TABLET BY MOUTH ONCE DAILY Eliquis 5 mg tablet 5 mg PO BID glucosamine HCl 500 mg tablet 500 mg PO DAILY Rx Instructions: administer with a meal multivitamin Tablet 1 tab PO DAILY ascorbate calcium (vitamin C) 500 mg tablet 500 mg PO DAILY cholecalciferol (vitamin D3) 25 mcg (1,000 unit) capsule 25 mcg PO DAILY diclofenac sodium 1 % gel topical Label Comments: APPLY 2 GRAMS TOPICALLY TO AFFECTED AREA 4 TIMES DAILY NEEDED. DO NOT USE MORE THAN 8 GRAMS DAILY TO ANY ONE JOINT cyclobenzaprine 5 mg tablet 5 mg PO BID PRN (Reason: muscle spasm) Qty: 60 3RF oxycodone 5 mg tablet 5 mg PO BID PRN (Reason: pain) Qty: 60 0RF hydrocortisone 20 mg tablet 20 mg PO TID 30 Days Qty: 90 0RF Rx Instructions: 1 tab am, 1 tab at noon, 1/2 tab qhs atorvastatin 40 MG tablet 40 mg PO HS Clinical Impressions Clinical Impression: Acute exacerbation of CHF (congestive heart failure) Discharge ED Provider: Kelton Pleitez General Adult HPI General Chief complaint: Fall Stated complaint: fall Time Seen by Provider: 06/25/22 11:20 Mode of Arrival: EMS Source of Information: Patient Limitations: No Limitations Description of Symptoms (Recalled from ER Triage Doc. by RN): pt to ed via ems c/o fall. pt states she was on the commode this morning, had a dizzy episode and fell between the tub and the commode. pt states she hit her head on the faucet. pt reports she has dizzy spells often d/t her medication side effects. pt reports right shoulder pain. History of Present Illness HPI narrative: This is a 71-year-old female with history of A. fib on Xarelto, CHF, hyperlipidemia, hypertension who is presenting with fall. Patient states that she stood up after using the restroom and felt acutely lightheaded, fell to her right side and struck her head on the bathtub. Did not lose consciousness. Was unable to get her up from the ground, so called EMS. EMS brought her for further evaluation. On arrival, patient complaining of 8 out of 10 back pain with movement, 4 out of 10 with rest. Stabbing, burning, goes to her right shoulder blade. Also complaining of right shoulder, right elbow pain that is 4 out of 10 and does not radiate. Denies numbness/tingling/weakness in her arms or legs, bowel or bladder dysfunction, midline neck pain, vision changes, any other neurologic deficits. Related Data Home Medications Medication Instructions Recorded Confirmed atorvastatin 40 mg tablet 40 mg PO HS Cholesterol 06/27/21 06/04/22 apixaban 5 mg tablet (Eliquis) 5 mg PO BID a.fib 04/08/22 06/04/22 ascorbate calcium (vitamin C) 500 500 mg PO DAILY 04/08/22 06/04/22 mg tablet bumetanide 2 mg tablet 2 mg PO DAILY 04/08/22 06/04/22 cholecalciferol (vitamin D3) 25 25 mcg PO DAILY 04/08/22 06/04/22 mcg (1,000 unit) capsule glucosamine HCl 500 mg tablet 500 mg PO DAILY 04/08/22 06/04/22 levothyroxine 50 mcg tablet 50 mcg PO DAILY thyroid 04/08/22 06/04/22 (Euthyrox) multivitamin 1 tab PO DAILY 04/08/22 06/04/22 diclofenac sodium 1 % topical gel g topical 06/04/22 06/04/22 Previous Rx's Medication Instructions Recorded cyclobenzaprine 5 mg tablet 5 mg PO BID PRN muscle spasm #60 06/07/22 tabs oxycodone 5 mg tablet 5 mg PO BID PRN pain #60 tabs 06/15/22 hydrocortisone 20 mg tablet 20 mg PO TID 30 days #90 tabs 06/21/22 Allergies Allergy/AdvReac Type Severity Reaction Status Date / Time No Known Allergies Allergy Verified 06/04/22 13:22 PFSH PFS Social History Smoking Status: Never smoker alcohol intake: never substance use type: denies use current occupational st
[2022-06-25 12:17] LABS: Microscopic, Urine URINE MICROSCOPIC (MICROSCOPIC)
[2022-06-25 12:21] LABS: Appearance,Urine CLEAR (Clear); Bilirubin,Urine Negative (Negative); Blood, Urine Negative (Negative); Glucose,Urine (UA) Negative (Negative); Ketones,Urine Negative (Negative); Leukocyte Esterase,Urine Negative (Negative); Nitrate,Urine Negative (Negative); Protein,Urine Negative (Negative); Specific Gravity, Urine 1.015 (1.005-1.030); Urobilinogen,Urine 0.2 EU/dl (0.2)
--- NOTE | 2022-06-25 12:22 | PC.NURSE ---
Pt being taken to CT
[2022-06-25 12:23] LABS: Anisocytosis 1+; Color,Urine Yellow (Yellow); Eosinophils % 1 % (0-3); Lymphocytes % 6 % (10-50); Macrocytosis 1+; Monocytes % 2 % (2-9); Neutrophils % 91 % (42-76); Ovalocytes 1+; Platelet Estimate Normal; Total Cells Counted 100
[2022-06-25 12:24] LABS: Chloride 104 mmol/L (98-107); Potassium 3.9 mmoL/L (3.5-5.1); Sodium 147 mmol/L (136-145)
[2022-06-25 12:27] LABS: Alanine Aminotransferase 41 U/L (12-78); Albumin Level 4.1 g/dl (3.5-5.0); Albumin/Globulin Ratio 1.9 (1.1-1.8); Alkaline Phosphatase 89 U/L (38-126); Aspartate Amino Transferase 36 U/L (14-36); Bilirubin,Total 0.7 mg/dl (0.2-1.3); Blood Urea Nitrogen 22 mg/dl (7-17); Carbon Dioxide 38 mmol/L (22.0-30.0); Creatinine Clearance Estimated 57 mL/min (50-200); Estimated Glomerular Filt Rate 40 ml/min (>60); GFR (African American) 49 ML/MIN (>60); Globulin 2.2 g/dL (1.3-3.2); Total Protein,Serum 6.3 g/dl (6.3-8.2)
[2022-06-25 12:28] LABS: Anion Gap 8.9 mEq/L (5-15); Calcium 8.7 mg/dl (8.4-10.2); Glucose 116 mg/dl (74-100); Squamous Epithelial Cell,Urine Occasional #/hpf (0-5); WBC,Urine Occasional #/hpf (0-3)
[2022-06-25 12:36] LABS: NT Pro Brain Natriuretic Pep. 5400 pg/mL (0-125)
[2022-06-25 12:40] LABS: Troponin I 0.02 ng/ml (0.00-0.034)
[2022-06-25 12:58] LABS: VBG Base Excess 6.7 mmol/L (-2.4-2.3); VBG HCO3 32.2 mmol/L (23-30); VBG Oxygen Saturation 65.6 % (50-70); VBG PH 7.36 mmol/L (7.31-7.41); VBG PO2 36.2 mmol/L (28-40)
[2022-06-25 13:01] LABS: VBG PCO2 58.8 mmol/L (35-51)
[2022-06-25 13:26] LABS: Coronavirus 19, PCR Not Detected (NotDetected); Influenza A, PCR Not Detected (NotDetected); Influenza B, PCR Not Detected (NotDetected)
--- NOTE | 2022-06-25 14:20 | PC.NURSE ---
RICHARD MIDDLETON speaking with Dr. Moore (hosptalist)
--- NOTE | 2022-06-25 15:23 | PC.NURSE ---
pt provided with lunch tray
--- NOTE | 2022-06-25 15:45 | HMH.PHAINT1 ---
Pharmacy Intervention Comments: MEDICATION RECONCILIATION COMPLETED ON PATIENT USING EXTERNAL FILL HISTORY FROM PHARMACY AND CALLING PATIENT'S PHARMACY ([facility] IN [place]). MANY MEDICATIONS WERE ON HOLD AT THIS PHARMACY AND PATIENT HAS NOT PICKED UP QUITE A FEW MAINTENANCE MEDICATIONS IN MONTHS. -MAJOR BANG, HUYEND
--- NOTE | 2022-06-25 16:03 | PC.NURSE ---
called report to sharmaine cotton rn
--- NOTE | 2022-06-25 16:16 | PC.NURSE ---
patient arrived to floor by stretcher from ED
--- NOTE | 2022-06-25 16:21 | CA_ITS ---
APPROVED REPORT EXAM: Comprehensive 2D, Doppler, and color-flow Echocardiogram Financial Reserve Clerk: Nely Lind RT(R) Ht: 5 ft 6 in Wt: 200lbs BSA: 2.00 BP: 128/99 mmHg Indications: CHF, AFIB with RVR, non compliant with cardiac meds, HTN, obesity. 2D Dimensions LVOT 2.01 cm (M/F) 1.5-2.5 M-Mode Dimensions RVDd 3.00 cm (0.9-2.6) LA Diam 3.67 cm (1.9-4.0) LVDd 3.04 cm (3.5-5.7) Ao Diam 3.03 cm (2.0-3.7) LVDs 2.64 cm (3.5-5.7) IVSd 1.20 cm (0.6-1.1) PWd 0.80 cm (0.6-1.1) EF (Teich) 29.30% FS 13.20% EDV (Teich) 36.20 mL ESV (Teich) 25.60 mL Left Ventricle Technically difficult study because of the patient factors and poor acoustic windows. The patient was in atrial fibrillation with rapid ventricular response throughout the study. Left atrium is mildly enlarged, left ventricle is normal size, estimated ejection fraction is probably 50% with no obvious regional wall motion abnormality. Diastolic parameters are inconclusive. Right Ventricle Right atrium and right ventricle are mildly enlarged with normal contractility. Aortic Valve Aortic valve is minimally thickened and fibrosed there is no aortic stenosis or aortic insufficiency. Mitral Valve Mitral valve is grossly normal, there is mild mitral regurgitation. Tricuspid Valve Tricuspid valve grossly normal, there is mild tricuspid regurgitation, tricuspid rotation jet velocity is inadequate for calculation of the right ventricular systolic pressure Pulmonic Valve Pulmonic valve is poorly visualized. Great Vessels Aortic root is normal size. Inferior vena cava is poorly visualized. Pericardium No significant pericardial effusion noted. Conclusion 1. Technically difficult study as described above, biatrial enlargement, normal left ventricular size, mild concentric left ventricular hypertrophy, estimated ejection fraction approximately 50% with no regional wall motion abnormality, diastolic parameters are inconclusive. 2. Mildly enlarged right ventricle with normal contractility. 3. Mild mitral and tricuspid regurgitation. 4. No significant pericardial effusion. 5. Inferior vena cava is poorly visualized. Electronically signed by : Vicente Johnson MD 06/28/2022 20:39:54
--- NOTE | 2022-06-25 17:50 | EXP.HP ---
History of Present Illness *Admission Date: 06/25/22 *Reason for visit:: shortness of breath, falling at home, weakness *History of present illness: 70 year old female with history of atrial fibrillation, obesity, multiple compression fractures in her spine, and history of CHF who presented to the ER after falling at home and being in pain. In the ER she reported that she stood up after using the restroom and felt acutely lightheaded, fell to her right side and struck her head on the bathtub.? Did not lose consciousness.? Was unable to get her up from the ground, so called EMS.? EMS brought her for further evaluation.? On arrival, she was complaining of significant pain with movement in her back and right shoulder. Pain better with rest. Stabbing and burning that rotates around her right shoulder. She denies any numbness, loss of consciousness, weakness. No chest pain or confusion. Work-up in the ER with extensive scans showed no fractures in her extremities. Did show chronic vertebral compression fractures as well as questionable acute versus subacute T11 fracture. Additionally however she was noted to have labs concerning for CHF exacerbation with elevated BNP, MARCUS with creatinine above her baseline, and uncontrolled heart rate (A. fib.) Medicine consulted to admit for A. fib with RVR, volume overload, CHF exacerbation, and pain control. On evaluation after arriving to the floor, reviewing her medications it is apparent that she has not been taking her medications as prescribed. She has had episodes of dizziness and weakness over the past few months but no falls until today. She states that she stopped taking her rate controlling medications (amiodarone and diltiazem) after being prescribed a new pain medication because she was concerned it would interact. She did not consult her doctor on making this change. She has been taking her Bumex daily per her report. Has been feeling more short of breath and feels like she has too much fluid on board. She is noted to have a wound on her left schuster that she states is a ruptured blister from fluid. Just started seeing a new doctor a month and a half ago but has not addressed these problems with him yet. [facility] Medical History (Updated 06/25/22 @ 18:19 by Daniel Moore MD) Abscess MARCUS (acute kidney injury) Atrial fibrillation Congestive heart failure History of back pain Hyperlipidemia Hypertension Osteoarthritis Osteoporosis Urinary tract infection Family History Diabetes Social History Smoking Status: Never smoker alcohol intake: never substance use type: denies use current occupational status: retired Travel in the last 8 weeks: None household members: none housing: apartment caffeine: Yes Review of Systems Review of Systems Review of systems (narrative): 14 point review of systems performed, pertinent positives and negatives as per HPI Meds Home Medications and Allergies Home Medications Medication Instructions Recorded Confirmed Type atorvastatin 40 mg tablet 40 mg PO HS Cholesterol 06/27/21 06/25/22 History apixaban 5 mg tablet (Eliquis) 5 mg PO BID A FIB 04/08/22 06/25/22 History ascorbate calcium (vitamin C) 500 500 mg PO DAILY Supplement 04/08/22 06/25/22 History mg tablet cholecalciferol (vitamin D3) 25 25 mcg PO DAILY Supplement 04/08/22 06/25/22 History mcg (1,000 unit) capsule glucosamine HCl 500 mg tablet 500 mg PO DAILY Supplement 04/08/22 06/25/22 History levothyroxine 50 mcg tablet 50 mcg PO DAILY thyroid 04/08/22 06/25/22 History (Euthyrox) multivitamin 1 tab PO DAILY Supplement 04/08/22 06/25/22 History oxycodone 5 mg tablet 5 mg PO BIDP PRN pain 06/25/22 06/25/22 History tizanidine 4 mg tablet 4 mg PO BIDP PRN Muscle Spasm 06/25/22 06/25/22 History New Prescriptions to Start Prescriptions: Allergies Allergy/AdvReac T
--- NOTE | 2022-06-26 01:54 | PC.NURSE ---
spoke with Barrett about metoprolol being ordered with BP of 87/59, orders to hold medication at this time.
[2022-06-26 03:42] VITALS: BP 107/77; PULSE 102; RESP 20; TEMP 36.9; O2SAT 97
--- NOTE | 2022-06-26 05:40 | PC.NURSE ---
pt is A&OX4. pt is able to turn in bed with minimal assistance. redness noted to bilateral lower extremities, open blister noted to left lower extremity, bactroban ointment was applied to area and curlex in place. pt has c/o achiness this shift but has refused any pain medication. CB in reach.
[2022-06-26 06:00] VITALS: BMI 29.9
[2022-06-26 07:01] LABS: Basophils # 0.1 K/mm3 (0-0.2); Eosinophils # 0.3 K/mm3 (0.0-0.4); Eosinophils % 2.5 % (0.1-12.0); Hematocrit 46.1 % (37.0-47.0); Lymphocytes # 2.1 K/mm3 (0.7-4.5); Lymphocytes % 15.7 % (10-50); Mean Corpuscular HGB Conc 30.4 g/dL (31.8-35.4); Mean Corpuscular Volume 98.6 fl (81-99); Mean Platelet Volume 9.4 fl (7.4-10.4); Monocytes # 0.6 K/mm3 (0.1-1.0); Monocytes % 4.7 % (1.7-9.3); Neutrophils # 10.1 K/mm3 (1.8-7.8); Platelet Count 262 K/mm3 (142-424); Red Blood Count 4.67 M/mm3 (4.20-5.40); Red Cell Distribution Width 16.5 % (11.5-17.5); White Blood Count 13.3 K/mm3 (4.8-10.8)
[2022-06-26 07:02] LABS: Chloride 98 mmol/L (98-107); Sodium 146 mmol/L (136-145)
[2022-06-26 07:03] LABS: Potassium 3.4 mmoL/L (3.5-5.1)
[2022-06-26 07:05] LABS: Alanine Aminotransferase 34 U/L (12-78); Albumin Level 3.8 g/dl (3.5-5.0); Albumin/Globulin Ratio 1.7 (1.1-1.8); Alkaline Phosphatase 87 U/L (38-126); Anion Gap 13.4 mEq/L (5-15); Aspartate Amino Transferase 28 U/L (14-36); Bilirubin,Total 0.9 mg/dl (0.2-1.3); Blood Urea Nitrogen 23 mg/dl (7-17); Calcium 8.3 mg/dl (8.4-10.2); Carbon Dioxide 38 mmol/L (22.0-30.0); Creatinine Clearance Estimated 63 mL/min (50-200); Estimated Glomerular Filt Rate 49 ml/min (>60); GFR (African American) 59 ML/MIN (>60); Globulin 2.2 g/dL (1.3-3.2); Glucose 74 mg/dl (74-100)
[2022-06-26 07:06] LABS: Magnesium 2.1 mg/dl (1.6-2.3)
[2022-06-26 07:36] LABS: Thyroid Stimulating Hormone 0.38 uIU/mL (0.465-4.68)
[2022-06-26 08:00] VITALS: BP 121/71; PULSE 95; RESP 22; TEMP 36.3; O2SAT 95
--- NOTE | 2022-06-26 11:04 | EXP.ACUTE.PN ---
Subjective *Date: 06/26/22 *Time: 12:32 Interval history: Patient ambulating independently this morning however easily winded. Responded well to diuretic with over 2 L of urine output. Heart rate responded last night to metoprolol, unfortunately an oral dose was held due to blood pressure/systolic in the low 100s. Patient denies any chest pain, nausea, vomiting. Is having frequent urination now that her Dietrich catheter is out this morning. Remains afebrile. Edema somewhat better in her legs. Complaining of fatigue. Pain stable in her back at this time. Medical Exam Vital signs and Labs for Last 24 Hours: Vital Signs Temp Pulse Pulse Resp BP BP Pulse Ox 06/26/22 08:00 97.3 F L 95 H 22 121/71 95 06/26/22 03:42 98.5 F 102 H 20 107/77 L 97 06/25/22 20:00 98.7 F 105 H 18 101/67 L 96 06/25/22 16:00 19 92 L 06/25/22 16:10 98.2 F 103 H 17 112/60 06/25/22 15:41 18 06/25/22 15:00 86 15 122/85 97 06/25/22 14:30 54 L 18 121/83 97 06/25/22 14:05 116 H 22 123/77 95 06/25/22 13:45 106 H 20 98 06/25/22 13:19 117 H 12 92 L 06/25/22 12:15 113 H 20 96 06/25/22 12:00 126 H 20 128/99 H 97 06/25/22 11:31 101 H 20 115/82 97 06/25/22 11:38 97.7 F 116 H 19 128/94 H 97 Intake and Output 06/25/22 06/26/22 06/26/22 23:59 07:59 15:59 Intake Total 240 / 240 240 / 240 Output Total 2700 / 3000 300 / 500 200 / 500 Balance -2460 / -2760 -300 / -260 40 / -260 Intake: Intake, Oral Amount 240 / 240 240 / 240 Output: Output, Urine Amount 1700 / 1700 Output, Urine Amount (Catheter) 1000 / 1300 300 / 500 200 / 500 Dietrich 1000 / 1300 300 / 500 200 / 500 Other: Weight 84.567 kg Patient Weight 06/26/22 23:59 Weight 84.567 kg Laboratory Results - last 24 hr 06/25/22 12:10: WBC 11.2 H, RBC 4.41, Hgb 13.4, Hct 42.9, MCV 97.3, MCH 30.4, MCHC 31.3 L, RDW 16.5, Plt Count 270, MPV 9.5, Neut % (Auto) 89.3 H, Lymph % (Auto) 5.5 L, [place] % (Auto) 2.8, Eos % (Auto) 1.7, Baso % (Auto) 0.6, Neut # (Auto) 10.0 H, Lymph # (Auto) 0.6 L, [place] # (Auto) 0.3, Eos # (Auto) 0.2, Baso # (Auto) 0.1, Total Counted 100, Neutrophils % (Manual) 91 H, Lymphocytes % (Manual) 6 L, Monocytes % (Manual) 2, Eosinophils % (Manual) 1, Platelet Estimate Normal, Anisocytosis 1+, Macrocytosis 1+, Ovalocytes 1+ 06/25/22 12:10: Sodium 147 H, Potassium 3.9, Chloride 104, Carbon Dioxide 38 H, Anion Gap 8.9, BUN 22 H, Creatinine 1.30 H, Estimated Creat Clear 57, Estimated GFR 40 L, Est GFR ( Amer) 49 L, Glucose 116 H, Calcium 8.7, Total Bilirubin 0.7, AST 36, ALT 41, Alkaline Phosphatase 89, Troponin I 0.02, Total Protein 6.3, Albumin 4.1, Globulin 2.2, Albumin/Globulin Ratio 1.9 H 06/25/22 12:10: NT-Pro-B Natriuret Pep 5400 H 06/25/22 12:10: Urine Color Yellow, Urine Appearance Clear, Urine pH 6.0, Ur Specific [place] 1.015, Urine Protein Negative, Urine Glucose (UA) Negative, Urine Ketones Negative, Urine Blood Negative, Urine Nitrate Negative, Urine Bilirubin Negative, Urine Urobilinogen 0.2, Ur Leukocyte Esterase Negative, Urine RBC None, Urine WBC Occasional, Ur Squamous Epith Cells Occasional, Urine Bacteria None 06/25/22 12:12: VBG pH 7.36, VBG pCO2 58.8 H, VBG pO2 36.2, VBG HCO3 32.2 H, VBG Total CO2 34.0 H, VBG O2 Saturation 65.6, VBG Base Excess 6.7 H 06/25/22 13:19: SARS-CoV-2 (PCR) Not detected, Influenza A Untype (PCR) Not detected, Influenza Type B (PCR) Not detected 06/26/22 06:34: WBC 13.3 H, RBC 4.67, Hgb 14.0, Hct 46.1, MCV 98.6, MCH 30.0, MCHC 30.4 L, RDW 16.5, Plt Count 262, MPV 9.4, Neut % (Auto) 76.0, Lymph % (Auto) 15.7, [place] % (Auto) 4.7, Eos % (Auto) 2.5, Baso % (Auto) 1.0, Neut # (Auto) 10.1 H, Lymph # (Auto) 2.1, [place] # (Auto) 0.6, Eos # (Auto) 0.3, Baso # (Auto) 0.1 06/26/22 06:34: Sodium 146 H, Potassium 3.4 L, Chloride 98, Carbon Dioxide 38 H, Anion Gap 13.4, BUN 23 H, Creatinine 1.10 H, Estimated Creat Clear 63, Estimated GFR 49 L, Est GF
[2022-06-26 14:25] VITALS: PULSE 90; O2SAT 97
[2022-06-26 14:25] LABS: ABG Base Excess 11.8 mmol/L (-2.4-2.3); ABG HCO3 36.1 mmhg (22.0-26.0); ABG Oxygen Saturation 97 % (90-100); ABG PH 7.43 mmol/L (7.35-7.45); ABG PO2 96.4 mmhg (80-100); ABG TCO2 37.8 mmhg (23-27)
[2022-06-26 14:26] LABS: Allen's Test Acceptable; Oxygen 4 LNC %; Source Right Radial
[2022-06-26 14:27] LABS: ABG PCO2 55.6 mmhg (35.0-45.0)
[2022-06-26 16:00] VITALS: BP 106/47; PULSE 87; RESP 24; TEMP 36.7; O2SAT 97
[2022-06-26 16:29] VITALS: BP 98/62
--- NOTE | 2022-06-26 16:51 | PC.NURSE ---
Notified Dr. Moore of ABG results. NNO. Pt has had increased confusion, although a/o, appears to be baseline. Able to answer questions appropriately. Bed alarm in use for safety. VSS. Dr. Moore stated to give metoprolol unless SBP less than 100, to help with HR. CB in reach. Have applied bactroban to ble and dressings applied. 02 remains in use @ 4 L OR.
[2022-06-26 19:37] VITALS: BP 99/58; PULSE 100; RESP 18; TEMP 36.6; O2SAT 97
--- NOTE | 2022-06-26 19:51 | PC.NURSE ---
spoke with hospitalist regarding pt. BP of 99/58 with metoprolol ordered, she stated to go ahead and give the metoprolol
[2022-06-27] VITALS (11 sets, daily range): BP systolic 99–120; BP diastolic 53–83; PULSE 82–115; RESP 16–18; TEMP 36.4–37.1; O2SAT 93–98; BMI 29.9
[2022-06-27 07:22] LABS: Chloride 98 mmol/L (98-107); Potassium 3.9 mmoL/L (3.5-5.1); Sodium 142 mmol/L (136-145)
[2022-06-27 07:25] LABS: Alanine Aminotransferase 30 U/L (12-78); Albumin Level 4.2 g/dl (3.5-5.0); Albumin/Globulin Ratio 1.8 (1.1-1.8); Alkaline Phosphatase 87 U/L (38-126); Anion Gap 11.9 mEq/L (5-15); Aspartate Amino Transferase 32 U/L (14-36); Bilirubin,Total 1.3 mg/dl (0.2-1.3); Blood Urea Nitrogen 25 mg/dl (7-17); Calcium 8.4 mg/dl (8.4-10.2); Carbon Dioxide 36 mmol/L (22.0-30.0); Creatinine Clearance Estimated 63 mL/min (50-200); Estimated Glomerular Filt Rate 49 ml/min (>60); GFR (African American) 59 ML/MIN (>60); Globulin 2.3 g/dL (1.3-3.2); Glucose 78 mg/dl (74-100); Magnesium 2.2 mg/dl (1.6-2.3); Total Protein,Serum 6.5 g/dl (6.3-8.2)
[2022-06-27 07:30] LABS: Basophils # 0.1 K/mm3 (0-0.2); Basophils % 1.1 % (0.1-2.0); Eosinophils # 0.3 K/mm3 (0.0-0.4); Eosinophils % 2.6 % (0.1-12.0); Hematocrit 43.7 % (37.0-47.0); Hemoglobin 13.5 g/dL (12.2-16.2); Lymphocytes % 19.1 % (10-50); Mean Corpuscular HGB Conc 30.8 g/dL (31.8-35.4); Mean Corpuscular Hemoglobin 30.3 pg (27.0-31.2); Mean Corpuscular Volume 98.5 fl (81-99); Mean Platelet Volume 9.3 fl (7.4-10.4); Monocytes # 0.6 K/mm3 (0.1-1.0); Monocytes % 5.4 % (1.7-9.3); Neutrophils # 7.5 K/mm3 (1.8-7.8); Neutrophils % 71.8 % (37.0-80.0); Platelet Count 265 K/mm3 (142-424); Red Blood Count 4.44 M/mm3 (4.20-5.40); Red Cell Distribution Width 16.4 % (11.5-17.5); White Blood Count 10.4 K/mm3 (4.8-10.8)
--- NOTE | 2022-06-27 10:49 | PC.NURSE ---
patient had 1 unmeasured void
--- NOTE | 2022-06-27 12:45 | HMH.PTEV ---
Physical Therapy Evaluation Rehab PT IP Evaluation Start: 06/25/22 18:20 Freq: ONCE Status: Active Protocol: Document 06/27/22 12:30 EDA (Rec: 06/27/22 12:45 EDA [id number]) Subjective/History History History Patient is a 71 year old female admitted to [facility] secondary to a fall at home . Most recent imaging indicates multiple compression fractures, most acutely at T11. Patient lives at home alone. Home health visits 2x/ week and her son visits on the weekends. Patient had previously been in a SNF for rehab approx 3 months per patient report secondary to fall at home. Patient previously ambulated with SPC in home and RW in the community. Patient reports that she was previously independent with ADL's prior to admittance. Patient has a hx of A-fib, CHF, HTN and HL. Subjective Subjective I just hurt all over. Especailly in the middle of my back. Rehab PT IP Eval Objective Appearance Patient Behavior Appropriate,Cooperative Patient Orientation Person,Place,Birthday Difficulty following instructions none Speech Pattern Clear,Appropriate Ambulation Patient Able to Ambulate Yes Ambulation Observation IP General Gait Pattern Observation No Deviations/Normal Ambulation Distance (feet) 20 Ambulation Assistive Device Rolling Walker Ambulation Ability Contact Guard/Hand Hold Balance Ability to Arise Able, uses arms to help Sitting Balance Steady, safe Standing Balance Narrow stance w/o support Dynamic Sitting Balance Ability Good Dynamic Standing Balance Ability Good Transfers Sit to Stand Chair Transfer Ability Contact Guard/Hand Hold Pain Generalized Pain Intensity 8 ROM All Extremities PT ROM Status WFL MMT All Extremities PT MMT WFL Rehab PT IP prob,goals,plan Problems Date of Evaluation: 06/27/22 PT IP Problems Bed Mobility,Transfers,Gait, Balance,Self care,Safety Rehab Potential Rehab Potential Good Plan PT Intervention Plan
--- NOTE | 2022-06-27 14:09 | EXP.ACUTE.PN ---
Subjective *Date: 06/27/22 *Time: 16:20 Interval history: Ms. Benitez has remained stable today. On exam this morning she appeared in some mild distress. Has waxed and waned throughout the day depending on who is in the room with her. Has been participating with nursing, PT evaluated her. Got up with minimal assistance and can walk with guarding to make sure she does not fall. Complicated however by her pain from her back from her fracture. She is generally frail. Afebrile. Normotensive. Nausea or vomiting. No chest pain or headache. Having what appears to be more back pain today. Extensive conversation with son at bedside, he has strong reservation about her ability to be at home safely as she has been at home with caregivers and still having falls. 2 months ago she was at [facility] in [place] for rehab and did really well. Unfortunately has declined since getting home. He expressed interest in referring her there as he does not feel she is safe to go home, I agree at this time. Patient is open to this idea. Eating [employer] that her son brought her. Discussed getting a shower today with assistance. Medical Exam Vital signs and Labs for Last 24 Hours: Vital Signs Temp Pulse Pulse Resp BP Pulse Ox FiO2 06/27/22 08:11 98.1 F 102 H 18 117/64 95 06/27/22 03:50 97.7 F 104 H 18 101/56 L 97 06/26/22 19:37 97.8 F 100 H 18 99/58 L 97 06/26/22 19:28 36 06/26/22 16:29 98/62 L 06/26/22 16:00 98.1 F 87 24 106/47 L 97 06/26/22 14:25 90 06/26/22 14:25 90 06/26/22 14:25 97 Intake and Output 06/26/22 06/27/22 06/27/22 23:59 07:59 15:59 Intake Total 170 / 770 120 / 360 240 / 360 Output Total 555 / 1055 0 / 0 Balance -385 / -285 120 / 360 240 / 360 Intake: Intake, Oral Amount 120 / 720 120 / 360 240 / 360 Intake, Total IV Amount 50 / 50 Ceftriaxone Sodium 1 gm In 0.9 50 / 50 % Sodium Chloride 50 ml @ 100 mls/hr IV ONCE ONE Rx#:[id number] Output: Output, Urine Amount 555 / 555 0 / 0 Other: Number of Unmeasured Voids 0 1 Weight 84.425 kg Patient Weight 06/27/22 23:59 Weight 84.425 kg Laboratory Results - last 24 hr 06/26/22 14:21: Specimen Source Right radial, O2 % 4 lnc, ABG pH 7.43, ABG pCO2 55.6 H, ABG pO2 96.4, ABG HCO3 36.1 H, ABG Total CO2 37.8 H, ABG O2 Saturation 97, ABG Base Excess 11.8 H, Joel Test Acceptable 06/27/22 07:01: WBC 10.4, RBC 4.44, Hgb 13.5, Hct 43.7, MCV 98.5, MCH 30.3, MCHC 30.8 L, RDW 16.4, Plt Count 265, MPV 9.3, Neut % (Auto) 71.8, Lymph % (Auto) 19.1, [place] % (Auto) 5.4, Eos % (Auto) 2.6, Baso % (Auto) 1.1, Neut # (Auto) 7.5, Lymph # (Auto) 2.0, [place] # (Auto) 0.6, Eos # (Auto) 0.3, Baso # (Auto) 0.1 06/27/22 07:01: Sodium 142, Potassium 3.9, Chloride 98, Carbon Dioxide 36 H, Anion Gap 11.9, BUN 25 H, Creatinine 1.10 H, Estimated Creat Clear 63, Estimated GFR 49 L, Est GFR ( Amer) 59, Glucose 78, Calcium 8.4, Magnesium 2.2, Total Bilirubin 1.3, AST 32, ALT 30, Alkaline Phosphatase 87, Total Protein 6.5, Albumin 4.2 D, Globulin 2.3, Albumin/Globulin Ratio 1.8 I & O for Labs for Last 24 Hours: Intake & Output 06/24/22 06/25/22 06/26/22 06/27/22 23:59 23:59 23:59 23:59 Intake Total 240 / 240 650 / 770 360 / 360 Output Total 2700 / 3000 1055 / 1055 0 / 0 Balance -2460 / -2760 -405 / -285 360 / 360 Weight 87.231 kg 84.567 kg 84.425 kg Constitutional: Present mild distress, obese and chronically ill appearing Head: Present atraumatic and normocephalic ENT: Present normal exam Neck: Present normal inspection Respiratory: Present crackles (bibasalar in posterior lung gagnon.); Absent accessory muscle use or wheezes Cardiac: Present Irregularly Regular; Absent No Murmur GI: Present soft; Absent distention Extremities: Present edema (intervally improved, 1+ BLE) Skin: Present erythema and dry Comment:: left leg still warm and red concerning for cellulitis Neuro: Present aler
[2022-06-28 03:57] VITALS: BP 96/48; PULSE 88; RESP 20; TEMP 36.4; O2SAT 96; BMI 30.2
--- NOTE | 2022-06-28 04:59 | PC.NURSE ---
pt has rested well. A&OX4. up to BSC with assistance. c/o of pain in side X1, tylenol given per mar. O2 sats >95% on 3L NC. HR 82-88. CB in reach.
[2022-06-28 06:02] LABS: Basophils # 0.1 K/mm3 (0-0.2); Eosinophils # 0.2 K/mm3 (0.0-0.4); Eosinophils % 3.1 % (0.1-12.0); Hematocrit 39.6 % (37.0-47.0); Lymphocytes # 1.3 K/mm3 (0.7-4.5); Lymphocytes % 18.1 % (10-50); Mean Corpuscular Hemoglobin 30.3 pg (27.0-31.2); Mean Platelet Volume 9.7 fl (7.4-10.4); Monocytes # 0.5 K/mm3 (0.1-1.0); Neutrophils # 5.1 K/mm3 (1.8-7.8); Neutrophils % 70.8 % (37.0-80.0); Platelet Count 196 K/mm3 (142-424); Red Blood Count 3.92 M/mm3 (4.20-5.40); Red Cell Distribution Width 16.7 % (11.5-17.5); White Blood Count 7.2 K/mm3 (4.8-10.8)
[2022-06-28 06:03] LABS: Hemoglobin 11.9 g/dL (12.2-16.2)
[2022-06-28 06:12] LABS: Chloride 101 mmol/L (98-107)
[2022-06-28 06:13] LABS: Potassium 4.3 mmoL/L (3.5-5.1); Sodium 140 mmol/L (136-145)
[2022-06-28 06:15] LABS: Blood Urea Nitrogen 26 mg/dl (7-17); Creatinine Clearance Estimated 70 mL/min (50-200); Estimated Glomerular Filt Rate 55 ml/min (>60); GFR (African American) 66 ML/MIN (>60)
[2022-06-28 06:16] LABS: Calcium 8.2 mg/dl (8.4-10.2); Carbon Dioxide 36 mmol/L (22.0-30.0); Glucose 91 mg/dl (74-100); Magnesium 2.1 mg/dl (1.6-2.3)
[2022-06-28 08:00] VITALS: BP 108/80; PULSE 109; RESP 24; TEMP 36.4; O2SAT 97
--- NOTE | 2022-06-28 09:37 | HMH.OTEV ---
OT Inpatient Evaluation Rehab OT IP Evaluation Start: 06/27/22 16:25 Freq: ONCE Status: Complete Protocol: Document 06/28/22 09:30 [facility] (Rec: 06/28/22 09:37 [facility] [id number]) Rehab OT IP Assessment Subjective History Pt oriented x 3 on arrival. Pt agreeable to engage in therapy evaluation. Pt was admitted via ED on 06/25/22 due to a fall at home with weakness; subacute or acute T11 fx. Prior to being in the hospital she lived at home alone. Pt claims she was independent with dressing, bathing, and feeding. She did use a walker during ambulation and transfers. Usually her transfers were short distances. Pt was dependent upon two caregivers to complete all IADLs ( cleaning, cooking, laundry, grocery shopping). Pt has a past medical history of: Abscess MARCUS (acute kidney injury) Atrial fibrillation Congestive heart failure History of back pain Hyperlipidemia Hypertension Osteoarthritis Osteoporosis Urinary tract infection Subjective I am in pain. Pt complaining of back pain; nursing reports medicine had just been given. Pt went from supine to sitting at eob with min assist. Pt stood from eob with min assist. Pt completed short step tranfer from eob to chair with min assist. Pt sat down in chair with cga. Pt was left sitting in chair with call hernandez, chair alarm, and all other needs in reach. Objective Patient Orientation Person,Place,Birthday Upper Extremity Gross ROM Min Limitation <25% Shoulder ROM Limitations Muscle Weakness Elbow ROM Limitations
[2022-06-28 09:46] VITALS: BMI 30.2
--- NOTE | 2022-06-28 10:04 | SW/DCPLANNER ---
Addendum entered by Hemalatha Velez 06/29/22 09:44: This patient has been approved to discharge to [facility] today SNF level of care. COVID swab will be collected prior to discharge. I have updated med/surg staff (Hemalatha Purvis). Addendum entered by Hemalatha Velez 06/28/22 13:50: Yulisa ruelas/ [facility] stated that she is unable to accept this patient at this time. Patient is agreeable to placement at [facility]: patient information has been faxed to Pardeep ruelas/ [facility]. Addendum entered by Hemalatha Velez 06/28/22 10:41: Patient information has been faxed to Admissions at [phone] Original Note: I spoke with this patient regarding plans once medically stable for discharge. PT/OT evaluated this patient and recommended placement at time of discharge. Patient stated that she has been to [facility] in the past and prefers to go back there at time of discharge. I have attempted to contact [facility] w/ [facility]: no answer VM left. I will continue to contact [facility] to fax referral. Patient is medically stable for discharge per MD at this time.
--- NOTE | 2022-06-28 10:29 | EXP.ACUTE.PN ---
Subjective *Date: 06/28/22 *Time: 10:29 Interval history: Patient remained stable overnight. Was on oxygen for comfort however room air saturation this morning noted to be 89 to 90% without O2 for over an hour. Patient complaining of back pain that is persistent but wax and wanes during her hospitalization course. Pain limits her mobility. Heart rate stable with control overnight 80-95, low 100s this morning before her morning medications. Blood pressure acceptable. Patient denies any chest pain, nausea, vomiting, diarrhea. Denies headache. OT seeing patient this morning Medical Exam Vital signs and Labs for Last 24 Hours: Vital Signs Temp Pulse Resp BP Pulse Ox 06/28/22 08:00 97.5 F L 109 H 24 108/80 L 97 06/28/22 03:57 97.6 F 88 20 96/48 L 96 06/27/22 20:00 97.6 F 82 16 116/83 98 06/27/22 19:00 110 H 101/58 L 06/27/22 18:00 111 H 99/56 L 06/27/22 17:25 107 H 100/60 L 06/27/22 17:23 108 H 06/27/22 17:21 112 H 06/27/22 17:45 114 H 100/53 L 06/27/22 17:20 115 H 120/55 L 93 L 06/27/22 15:50 98.8 F 108 H 18 120/75 98 Intake and Output 06/27/22 06/28/22 06/28/22 23:59 07:59 15:59 Intake Total 480 / 1422 222 / 462 240 / 462 Output Total 200 / 840 600 / 600 0 / 600 Balance 280 / 582 -378 / -138 240 / -138 Intake: Intake, Oral Amount 480 / 1422 222 / 462 240 / 462 Output: Output, Urine Amount 200 / 840 600 / 600 0 / 600 Other: Number of Voids 1 Number of Unmeasured Voids 1 Weight 85.411 kg 85.41 kg Patient Weight 06/28/22 23:59 Weight 85.41 kg Laboratory Results - last 24 hr 06/28/22 05:50: WBC 7.2 D, RBC 3.92 L, Hgb 11.9 L D, Hct 39.6, MCV 101.0 H, MCH 30.3, MCHC 30.0 L, RDW 16.7, Plt Count 196 D, MPV 9.7, Neut % (Auto) 70.8, Lymph % (Auto) 18.1, [place] % (Auto) 7.0, Eos % (Auto) 3.1, Baso % (Auto) 1.0, Neut # (Auto) 5.1, Lymph # (Auto) 1.3, [place] # (Auto) 0.5, Eos # (Auto) 0.2, Baso # (Auto) 0.1 06/28/22 05:50: Sodium 140, Potassium 4.3, Chloride 101, Carbon Dioxide 36 H, Anion Gap 7.0, BUN 26 H, Creatinine 1.00, Estimated Creat Clear 70, Estimated GFR 55 L, Est GFR ( Amer) 66, Glucose 91, Calcium 8.2 L, Magnesium 2.1 I & O for Labs for Last 24 Hours: Intake & Output 06/25/22 06/26/22 06/27/22 06/28/22 23:59 23:59 23:59 23:59 Intake Total 240 / 240 650 / 770 1200 / 1422 462 / 462 Output Total 2700 / 3000 1055 / 1055 440 / 840 600 / 600 Balance -2460 / -2760 -405 / -285 760 / 582 -138 / -138 Weight 87.231 kg 84.567 kg 84.425 kg 85.41 kg Constitutional: Present mild distress, obese and chronically ill appearing Head: Present atraumatic and normocephalic ENT: Present normal exam Neck: Present normal inspection Respiratory: Present crackles (bibasalar in posterior lung gagnon.); Absent accessory muscle use or wheezes Cardiac: Present Irregularly Regular; Absent No Murmur GI: Present soft; Absent distention Extremities: Present edema (intervally improved, 2+ BLE) Skin: Present erythema and dry Comment:: left leg still warm, redness stable, serous drainage from ruptured blister. Neuro: Present alert, awake and oriented x 3 Assessment and Plan *Assessment and plan (1) Atrial fibrillation: Status: Acute Qualifiers: Atrial fibrillation type: persistent (not longstanding) Qualified Code(s): I48.19 - Other persistent atrial fibrillation Category: Medical Code(s): I48.91 - Unspecified atrial fibrillation (2) Fracture of T11 vertebra: Status: Acute Category: Medical Code(s): S22.089A - Unspecified fracture of T11-T12 vertebra, initial encounter for closed fracture (3) Cellulitis of left anterior lower leg: Status: Acute Category: Medical Code(s): L03.116 - Cellulitis of left lower limb (4) Low back pain: Status: Acute Qualifiers: Chronicity: chronic Back pain laterality: midline Sciatica presence: without sciatica Qualif
[2022-06-28 16:00] VITALS: BP 93/68; PULSE 113; RESP 22; TEMP 36.8; O2SAT 92
--- NOTE | 2022-06-28 18:42 | PC.NURSE ---
Patient very anxious. vs stable. Patient on room air for most of shift but then began to become anxious and felt sob despite high oxygen levels. 2LNC placed for comfort. Patient able to ambulate to bedside commode throughout the day. No other complaints noted.
[2022-06-28 19:28] VITALS: BP 114/64; PULSE 93; RESP 17; TEMP 36.6; O2SAT 96
[2022-06-28 20:00] VITALS: O2SAT 96
[2022-06-29] VITALS: O2SAT 94
[2022-06-29 03:40] VITALS: BP 106/58; PULSE 80; RESP 18; TEMP 36.7; O2SAT 96
[2022-06-29 05:00] VITALS: BMI 29.2
--- NOTE | 2022-06-29 05:55 | PC.NURSE ---
Pt has been very tearful t/o shift. Pt unable to say reason why she is tearful. Pt c/o back pain 1x t/o shift, tylenol given per MAR. Pt has had multiple episodes of apnea where oxygen will drop down into upper 70s. Pt has been encouraged to take deep breaths through her nose and has recovered quickly once awoken. Pt currently on 1.5 L nc satting around 95% while awake. Call light within reach.
[2022-06-29 06:46] LABS: Chloride 97 mmol/L (98-107); Sodium 141 mmol/L (136-145)
[2022-06-29 06:50] LABS: Blood Urea Nitrogen 24 mg/dl (7-17); Calcium 8.2 mg/dl (8.4-10.2); Carbon Dioxide 40 mmol/L (22.0-30.0); Creatinine Clearance Estimated 61 mL/min (50-200); Estimated Glomerular Filt Rate 49 ml/min (>60); GFR (African American) 59 ML/MIN (>60); Glucose 80 mg/dl (74-100)
[2022-06-29 07:22] VITALS: BP 103/65; PULSE 95; RESP 17; TEMP 36.4; O2SAT 96
[2022-06-29 10:06] LABS: Coronavirus 19, PCR Not Detected (NotDetected); Influenza A, PCR Not Detected (NotDetected); Influenza B, PCR Not Detected (NotDetected)
--- NOTE | 2022-06-29 11:53 | EXP.DC.SUM ---
General Admission date:: 06/25/22 Discharge date: 06/29/22 HPI HPI HPI: 70 year old female with history of atrial fibrillation, obesity, multiple compression fractures in her spine, and history of CHF who presented to the ER after falling at home and being in pain. In the ER she reported that she stood up after using the restroom and felt acutely lightheaded, fell to her right side and struck her head on the bathtub.? Did not lose consciousness.? Was unable to get her up from the ground, so called EMS.? EMS brought her for further evaluation.? On arrival, she was complaining of significant pain with movement in her back and right shoulder. Pain better with rest. Stabbing and burning that rotates around her right shoulder. She denies any numbness, loss of consciousness, weakness. No chest pain or confusion. Work-up in the ER with extensive scans showed no fractures in her extremities. Did show chronic vertebral compression fractures as well as questionable acute versus subacute T11 fracture. Additionally however she was noted to have labs concerning for CHF exacerbation with elevated BNP, MARCUS with creatinine above her baseline, and uncontrolled heart rate (A. fib.) Medicine consulted to admit for A. fib with RVR, volume overload, CHF exacerbation, and pain control. On evaluation after arriving to the floor, reviewing her medications it is apparent that she has not been taking her medications as prescribed. She has had episodes of dizziness and weakness over the past few months but no falls until today. She states that she stopped taking her rate controlling medications (amiodarone and diltiazem) after being prescribed a new pain medication because she was concerned it would interact. She did not consult her doctor on making this change. She has been taking her Bumex daily per her report. Has been feeling more short of breath and feels like she has too much fluid on board. She is noted to have a wound on her left schuster that she states is a ruptured blister from fluid. Just started seeing a new doctor a month and a half ago but has not addressed these problems with him yet. Hospital Course Hospital Course Hospital Course: The patient was admitted to the medical floor on telemetry. Her home medications were restarted including her beta-pilar therapy. Her telemetry identified improved rate control. The patient was maintained on antibiotic therapy. The patient identified improvement. Imaging identified a T11 acute fracture and the patient reported adequate pain control. PT and OT evaluations assisted with decision making. Her son Jayme Tang [phone] was contacted concerning goals of care. We recommended transition to care home facility for rehab and strengthening and he was amendable. The patient was amendable as well. Case management assisted with transition of care to [facility]. We had a discussion concerning her memory concerns and the possibility of vascular dementia with her chronic A. fib. Behavioral health was consulted to establish a baseline memory evaluation to help identify goals of care at home. The patient's care will be transitioned to care home facility for strengthening and rehab evaluation. Exam Data for Last 24 hours Vital signs and Labs for Last 24 Hours: Temp Pulse Resp BP Pulse Ox FiO2 97.6 F 95 H 17 103/65 L 96 36 06/29/22 07:22 06/29/22 07:22 06/29/22 07:22 06/29/22 07:22 06/29/22 07:22 06/26/22 19:28 Laboratory Results - last 24 hr 06/29/22 05:56: Sodium 141, Potassium 4.0, Chloride 97 L, Carbon Dioxide 40 H, Anion Gap 8.0, BUN 24 H, Creatinine 1.10 H, Estimated Creat Clear 61, Estimated GFR 49 L, Est GFR ( Amer) 59, Glucose 80, Calcium 8.2 L 06/29/22 10:00: SARS-CoV-2 (PCR) Not detected, Influenza A Untype (PCR) Not detected, Influenza Type B (PCR) Not detected I & O for Last 24 hours: Intake & Output 06/26/22 06/27/22 06/28/22 06/29/22 23:59 23:59 23:59 2
--- NOTE | 2022-06-29 15:25 | EXP.BH.CONS ---
History of Present Illness *Admission Date: 06/25/22 *Reason for visit:: confusion *History of present illness: I was consulted on patient for confusion. -interviewed at bedside -she was sitting up in the chair She states that she is here for falling. -she wanted me to call her son and tell him to come and get her -repeated this several times -she states that she lives in [place] by herself -he lives in [place] -has another son that lives in [place]; but he doesn't visit her -that they don't see eye to eye -and they argue a lot -her son that lives in [place]; visits her weekly per her report She states that she is here for falling at home. -that she only fell one time -but she has a lot of medical problems -that cause her to fall ORIENTATION QUESTIONS: -at [facility] -in [place] -in [facility] -president is Bryan -it is Tuesday -June -the - is coming up -2021 -able to repeat 'no ifs and or buts' without issues -immediate recall 3/3 -remote after 3 minutes 2/3 -spells world backwards--[id number] She does repeat herself often. -she asks for her son over and over -tells me that he is picking her up over and over -that he is taking her to his house -I did redirect her regarding going to a residential -but she immediately went back to her son's house in conversation -shows confusion during these times; but is easily redirected. MMSE preformed. she scored 23/30. RECOMMENDATIONS: 1. Transfer to SNF. 2. NO medicine changes from behavioral health stand point. TIME IN: 1140 TIME OUT: 1210 [facility] Medical History (Updated 06/29/22 @ 15:33 by Ruth Ann Golden APRN) Abscess MARCUS (acute kidney injury) Atrial fibrillation Congestive heart failure History of back pain Hyperlipidemia Hypertension Memory impairment Osteoarthritis Osteoporosis Urinary tract infection Family History Diabetes Social History Smoking Status: Never smoker alcohol intake: never substance use type: denies use current occupational status: retired Travel in the last 8 weeks: None household members: none housing: apartment caffeine: Yes Review of Systems Review of Systems Review of systems:: pertinent systems reviewed and negative unless documented below Review of systems (narrative): Did not assess. Psychiatric Psychiatric: Reports as per [facility] Meds Home Medications and Allergies Home Medications Medication Instructions Recorded Confirmed Type atorvastatin 40 mg tablet 40 mg PO HS Cholesterol 06/27/21 06/25/22 History apixaban 5 mg tablet (Eliquis) 5 mg PO BID A FIB 04/08/22 06/25/22 History ascorbate calcium (vitamin C) 500 500 mg PO DAILY Supplement 04/08/22 06/25/22 History mg tablet cholecalciferol (vitamin D3) 25 25 mcg PO DAILY Supplement 04/08/22 06/25/22 History mcg (1,000 unit) capsule glucosamine HCl 500 mg tablet 500 mg PO DAILY Supplement 04/08/22 06/25/22 History levothyroxine 50 mcg tablet 50 mcg PO DAILY thyroid 04/08/22 06/25/22 History (Euthyrox) multivitamin 1 tab PO DAILY Supplement 04/08/22 06/25/22 History oxycodone 5 mg tablet 5 mg PO BIDP PRN pain 06/25/22 06/25/22 History tizanidine 4 mg tablet 4 mg PO BIDP PRN Muscle Spasm 06/25/22 06/25/22 History metoprolol tartrate 50 mg tablet 50 mg PO BID 30 days #60 tabs 06/26/22 Rx bumetanide 1 mg tablet 1 mg PO DAILY #30 tabs 06/29/22 Rx cephalexin 500 mg capsule 500 mg PO QID #12 caps 06/29/22 Rx cyanocobalamin (vitamin B-12) 1,000 mcg PO DAILY #30 caps 06/29/22 Rx 1,000 mcg capsule New Prescriptions to Start Prescriptions: bumetanide SherlyicJayant cephalexin Sherlyic,Jayant cyanocobalamin (vitamin B-12) Jayant French metoprolol tartrate Daniel Moore Allergies Allergy/A
[2022-06-29 15:30] VITALS: BP 108/54; PULSE 101; RESP 17; TEMP 36.7; O2SAT 90
--- NOTE | 2022-06-30 13:06 | CARE MANAGER ---
Spoke with Alison at [facility] regarding this patient and she states that she is having some pain today, they have addressed with MD.
== END 2022-06-29 16:10 ==
LOC: ER 14:39 → 2ND 15:33
PROVIDERS: Family Medicine; Admitting Provider Internal Medicine Adolescent Medicine; Emergency Provider Emergency Medicine; Visit Provider Internal Medicine Adolescent Medicine
DX: G89.29 Other chronic pain (principal); M54.50 Low back pain, unspecified; I50.23 Acute on chronic systolic (congestive) heart failure; E23.0 Hypopituitarism; E78.5 Hyperlipidemia, unspecified; N17.9 Acute kidney failure, unspecified; E03.9 Hypothyroidism, unspecified; L03.116 Cellulitis of left lower limb; R41.3 Other amnesia; Z79.01 Long term (current) use of anticoagulants; W18.2XXA Fall in (into) shower or empty bathtub, initial encounter; Y92.012 Bathroom of single-family (private) house as the place of occurrence of the external cause; I48.19 Other persistent atrial fibrillation; S22.088A Other fracture of T11-T12 vertebra, initial encounter for closed fracture; Z79.899 Other long term (current) drug therapy; I11.0 Hypertensive heart disease with heart failure; Z20.822 Contact with and (suspected) exposure to COVID-19
CPT/HCPCS: G0378; 36415; 51702; 70450; 70496; 70498; 71045; 71275; 72125; 72128; 72131; 73030; 73060; 73070; 73521; 74175; 80048; 80053; 81001; 82803; 83735; 83880; 84443; 84484; 85007; 85025; 93005; 93306; 94640; 97110; 97163; 97166; 97530; 99285; C9803; J0696; Q9967; U0003; U0005